=== PATIENT | male | born 1945 | race Caucasian/White ===

== ENCOUNTER 2018-04-26 23:15 | Emergency (ER) | payer MEDICARE ==
--- NOTE | 2018-04-26 23:48 | RAD ---
AP VIEW CHEST: 04/26/18 HISTORY: Shortness of breath and dyspnea. History of asthma. AP view chest is obtained on 04/26/18. Comparison made to previous exam from 11/05/15. AP view chest demonstrates the lungs to be well aerated. No evidence of active intrathoracic disease seen. No evidence of effusions, pneumonia or pneumothorax seen. IMPRESSION: Unremarkable AP view chest. POS: [facility]
[2018-04-26 23:49] LABS: #Basophils 0.1 thou/uL (0.0-0.2); #Eosinphils 0.3 thou/uL (0.0-0.7); #Lymphocytes 1.8 thou/uL (1.20-3.40); #Monocytes 0.6 thou/uL (0.11-0.59); #Neutrophils 4.3 thou/uL (1.40-6.50); %Basophils 1.3 % (0.0-1.0); %Eosinophils 3.8 % (0.0-10.0); %Lymphocytes 25.5 % (21.0-51.0); %Monocytes 8.2 % (0.0-10.0); %Neutrophils 61.1 % (42.0-75.0); Hemoglobin 13.9 g/dL (14.0-18.0); Mean Corpuscular HGB CONC 32.5 g/dL (32.0-36.0); Mean Corpuscular Hemoglobin 29.4 pg (27.0-31.0); Mean Corpuscular Volume 90.4 fL (78.0-98.0); Mean Platelet Volume 7.6 fL (7.4-10.4); Platelet Count 241 thou/uL (130-400); RBC Distribution Width 12.4 % (11.5-14.5); Red Blood Cell (RBC) Count 4.72 mill/uL (4.70-6.10)
[2018-04-27 00:14] LABS: ALT (SGPT) Less than 7 U/L (8-55); AST (SGOT) 11 U/L (5-34); Alkaline Phosphatase 82 U/L (40-150); Anion Gap 12 mmol/L (10-20); BUN (Urea Nitrogen) 16 mg/dL (8.4-25.7); Bilirubin, Total 0.6 mg/dL (0.2-1.2); Calc. Creatinine Clearance 0 mL/min (70-130); Calcium 9.3 mg/dL (7.8-10.44); Carbon Dioxide 28 mmol/L (23-31); Chloride 103 mmol/L (98-107); Estimated GFR-MDRD 63; Glucose 135 mg/dL (83-110); Potassium 4.1 mmol/L (3.5-5.1); Sodium 139 mmol/L (136-145)
[2018-04-27] MEDS ORDERED: methylPREDNISolone Sod Succ/PF 125 MG/2 ML VIAL ONE (01:25)
[2018-04-27 01:52] LABS: CKMB 1.2 ng/mL (0-6.6); Troponin I Less than 0.010 ng/mL (< 0.028)
== END 2018-04-27 02:22 | disposition home or self-care (01) ==
LOC: ERS 23:15
DX: J45.901 Unspecified asthma with (acute) exacerbation (principal); N40.0 Benign prostatic hyperplasia without lower urinary tract symptoms; E78.5 Hyperlipidemia, unspecified; I10 Essential (primary) hypertension; G20 Parkinson's disease; F41.9 Anxiety disorder, unspecified; F32.9 Major depressive disorder, single episode, unspecified; Z79.82 Long term (current) use of aspirin; Z79.899 Other long term (current) drug therapy
CPT/HCPCS: 71045; 80053; 82553; 84484; 85025; 93005; 94640; 96374; J2930; J7620

== ENCOUNTER 2019-08-14 19:00 | Emergency (ER) | payer MEDICARE, MEDICAID ==
--- NOTE | 2019-08-14 20:30 | RAD ---
PORTABLE CHEST ONE VIEW: 08/14/19 at 7:47 p.m. HISTORY: Shortness of breath, asthma, wheezing. COMPARISON: 04/26/18. FINDINGS: The heart size is normal. Chronic changes are again seen. The aorta is tortuous. No lobar consolidati on, pneumothoraces or pleural effusions are identified. A hiatal hernia is present. IMPRESSION: No acute process. POS: [facility]
[2019-08-14] MEDS ORDERED: predniSONE 20 MG TAB ONE (21:29)
== END 2019-08-14 21:44 | disposition home or self-care (01) ==
LOC: ERS 19:00
DX: J45.901 Unspecified asthma with (acute) exacerbation (principal); L03.116 Cellulitis of left lower limb; N40.0 Benign prostatic hyperplasia without lower urinary tract symptoms; E78.5 Hyperlipidemia, unspecified; I10 Essential (primary) hypertension; G20 Parkinson's disease; J45.909 Unspecified asthma, uncomplicated; F41.9 Anxiety disorder, unspecified; F32.9 Major depressive disorder, single episode, unspecified; Z79.899 Other long term (current) drug therapy; Z79.82 Long term (current) use of aspirin
CPT/HCPCS: 71045; 87804; 93005; 94640; J7512; J7620

== ENCOUNTER 2019-10-18 17:18 | Emergency (ER) | payer MEDICARE, MEDICAID | END 2019-10-18 17:56 | disposition home or self-care (01) | LOC: ERS 17:18 | DX: L03.116 Cellulitis of left lower limb (principal); L03.115 Cellulitis of right lower limb; N40.0 Benign prostatic hyperplasia without lower urinary tract symptoms; E78.5 Hyperlipidemia, unspecified; I10 Essential (primary) hypertension; J45.909 Unspecified asthma, uncomplicated; G20 Parkinson's disease; F41.9 Anxiety disorder, unspecified; F32.9 Major depressive disorder, single episode, unspecified; Z79.899 Other long term (current) drug therapy; Z79.82 Long term (current) use of aspirin | CPT/HCPCS: 99282 ==

== ENCOUNTER 2019-10-20 17:51 | Emergency (ER) | payer MEDICARE, MEDICAID | END 2019-10-20 18:32 | disposition home or self-care (01) | LOC: ERS 17:51 | DX: M79.672 Pain in left foot (principal); M79.671 Pain in right foot; E78.5 Hyperlipidemia, unspecified; I10 Essential (primary) hypertension; G20 Parkinson's disease; J45.909 Unspecified asthma, uncomplicated; N40.0 Benign prostatic hyperplasia without lower urinary tract symptoms; F41.9 Anxiety disorder, unspecified; F32.9 Major depressive disorder, single episode, unspecified | CPT/HCPCS: 99281 ==

== ENCOUNTER 2019-10-30 12:00 | Outpatient (CLI) | payer MEDICARE, MEDICAID ==
--- NOTE | 2019-10-30 13:58 | MRI ---
MRI CERVICAL SPINE WITHOUT CONTRAST: 10/30/19 COMPARISON: None. HISTORY: Cervical radiculopathy, chest pain and neck pain. TECHNIQUE: Multiplanar and multisequence MR imaging of the cervical spine provided without contrast. FINDINGS: the sagittal STIR imaging demonstrates no focal area of osseous marrow edema. There is mild degenerat shae change at the atlantoaxial interspace. The craniocervical and the cervicothoracic junctions appea r intact. No anterolisthesis or retrolisthesis is noted within the cervical spine. There is no focal area of abnormal signal intensity identified within the cervical cord. C2-3, mild bilateral facet hypertrophy with no significant central canal or neural foraminal stenosis . C3-4, minimal disc bulge. Mild bilateral facet hypertrophy and hypertrophy of the ligamentum flavum. No significant central canal stenosis. Mild bilateral neural foraminal stenosis. C4-5, there is disc space narrowing with disc desiccation and mild disc bulge partially effacing the ventral thecal sac and leading to a mild degree of central canal stenosis. Bilateral facet and uncove rtebral osteophyte formation, left greater than right. Mild right and mild/moderate left neural harvey inal stenosis. C5-6, there is disc space narrowing with disc desiccation and mild disc bulge partially effacing the ventral thecal sac and leading to a mild degree of central canal stenosis. Mild bilateral facet hyper trophy on the basis of facet and uncovertebral osteophyte formation. C6-7, mild disc space narrowing and disc desiccation. Mild bilateral facet hypertrophy. No significan t central canal or neural foraminal stenosis. C7-T1, mild bilateral facet hypertrophy with no significant central canal or neural foraminal stenosi s. IMPRESSION: Cervical spine degenerative change as detailed above. POS: [facility]
--- NOTE | 2019-10-30 14:10 | RAD ---
RADIOGRAPH CERVICAL SPINE 3 VIEWS: DATE: 10/30/2019 HISTORY: 74-year-old male with cervical radiculopathy TECHNIQUE: 3 lateral views in flexion, extension, and neutral FINDINGS: Vertebral body heights are maintained. Moderate disc space narrowing at C5-6. Mild to moderate disc s pace narrowing at C6-7. Alignment is normal. Limited range of motion. High-grade facet DJD at C3-4. No prevertebral soft tissue swelling. No instability. IMPRESSION: 1. Mild-moderate Cervical spondylosis 2. Limited range of motion. 3. No instability
== END 2019-10-30 12:01 | disposition home or self-care (01) ==
LOC: BICMRI 12:00
PROVIDERS: ATTEND Nurse Practitioner Family
DX: M54.14 Radiculopathy, thoracic region (principal); M47.22 Other spondylosis with radiculopathy, cervical region
CPT/HCPCS: 72040; 72141

== ENCOUNTER 2019-11-10 02:21 | Emergency (ER) | payer MEDICARE, MEDICAID ==
--- NOTE | 2019-11-10 07:56 | RAD ---
RADIOGRAPH CHEST ONE VIEW RADIOGRAPH ABDOMEN 2 VIEWS: DATE: 11/10/2019 HISTORY: 74-year-old male with constipation. Lack of bowel movement for 4 days. FINDINGS: There are no airspace densities or pulmonary edema. The lateral costophrenic angles are sharp. There is no cardiomegaly. There is no evidence of pneumothorax or pneumoperitoneum. There is no evidence of dilated small bowel loops, differential air-fluid levels, or organomegaly. Th ere is an approximately 7 x 7 cm midline opacity at the thoracoabdominal junction with gas and fluid. IMPRESSION: 1) No acute cardiopulmonary findings. 2) no evidence of bowel obstruction. 3) moderate sized hiatal hernia.
== END 2019-11-10 04:03 | disposition home or self-care (01) ==
LOC: ERS 02:21
DX: K59.00 Constipation, unspecified (principal); I10 Essential (primary) hypertension; N40.0 Benign prostatic hyperplasia without lower urinary tract symptoms; F41.9 Anxiety disorder, unspecified; F32.9 Major depressive disorder, single episode, unspecified; G20 Parkinson's disease; E78.5 Hyperlipidemia, unspecified; J45.909 Unspecified asthma, uncomplicated
CPT/HCPCS: 74022

== ENCOUNTER 2019-12-08 13:45 | Emergency (ER) | payer MEDICARE, MEDICAID | END 2019-12-08 15:15 | disposition home or self-care (01) | LOC: ERS 13:45 | DX: J02.9 Acute pharyngitis, unspecified (principal); N40.0 Benign prostatic hyperplasia without lower urinary tract symptoms; E78.5 Hyperlipidemia, unspecified; I10 Essential (primary) hypertension; G20 Parkinson's disease; J45.909 Unspecified asthma, uncomplicated; G89.29 Other chronic pain; F41.9 Anxiety disorder, unspecified; F32.9 Major depressive disorder, single episode, unspecified; Z79.82 Long term (current) use of aspirin; Z79.899 Other long term (current) drug therapy | CPT/HCPCS: 99282 ==

== ENCOUNTER 2020-01-20 15:06 | Emergency (ER) | payer MEDICARE, MEDICAID ==
[2020-01-20 15:42] LABS: #Eosinphils 0.1 thou/uL (0.0-0.7); #Lymphocytes 1.3 thou/uL (1.20-3.40); #Monocytes 0.4 thou/uL (0.11-0.59); %Basophils 0.1 % (0.0-1.0); %Eosinophils 1.7 % (0.0-10.0); %Lymphocytes 22.2 % (21.0-51.0); %Monocytes 6.8 % (0.0-10.0); %Neutrophils 69.3 % (42.0-75.0); Hemoglobin 14.4 g/dL (14.0-18.0); Mean Corpuscular HGB CONC 34.1 g/dL (32.0-36.0); Mean Corpuscular Hemoglobin 31.4 pg (27.0-31.0); Mean Corpuscular Volume 92.2 fL (78.0-98.0); Platelet Count 180 thou/uL (130-400); RBC Distribution Width 11.4 % (11.5-14.5); Red Blood Cell (RBC) Count 4.59 mill/uL (4.70-6.10); White Blood Cell (WBC) Count 5.7 thou/uL (4.8-10.8)
[2020-01-20 16:08] LABS: ALT (SGPT) Less than 7 U/L (8-55); AST (SGOT) 12 U/L (5-34); Albumin 4.2 g/dL (3.4-4.8); Alkaline Phosphatase 86 U/L (40-110); Anion Gap 11 mmol/L (10-20); BUN (Urea Nitrogen) 24 mg/dL (8.4-25.7); Bilirubin, Total 0.5 mg/dL (0.2-1.2); CK (CPK) 102 U/L (30-200); Calc. Creatinine Clearance 0 mL/min (70-130); Calcium 8.7 mg/dL (7.8-10.44); Carbon Dioxide 27 mmol/L (23-31); Chloride 107 mmol/L (98-107); Estimated GFR-MDRD 66; Globulin 3.4 g/dL (2.4-3.5); Glucose 122 mg/dL (83-110); Lipase 40 U/L (8-78); Potassium 4.5 mmol/L (3.5-5.1); Protein, Total 7.6 g/dL (5.8-8.1); Sodium 140 mmol/L (136-145)
--- NOTE | 2020-01-20 16:08 | RAD ---
CHEST ONE VIEW: 01/20/20 HISTORY: Left sided chest pain. Heart size is within normal limits. Chronic lung changes are stable. Small hiatal hernia is noted. IMPRESSION: Chronic lung change. Stable chest. POS: [facility]
== END 2020-01-20 17:12 | disposition home or self-care (01) ==
LOC: ERS 15:06
DX: M94.0 Chondrocostal junction syndrome [Tietze] (principal); I10 Essential (primary) hypertension; J45.909 Unspecified asthma, uncomplicated; G20 Parkinson's disease; E78.5 Hyperlipidemia, unspecified; F41.9 Anxiety disorder, unspecified; F32.9 Major depressive disorder, single episode, unspecified; N40.0 Benign prostatic hyperplasia without lower urinary tract symptoms; Z79.51 Long term (current) use of inhaled steroids; Z79.82 Long term (current) use of aspirin; Z79.899 Other long term (current) drug therapy
CPT/HCPCS: 71045; 80053; 82550; 83690; 84484; 85025; 93005

== ENCOUNTER 2020-02-19 16:36 | Emergency (ER) | payer MEDICARE, MEDICAID ==
[2020-02-19] MEDS ORDERED: Adacel (T-DAP) 0.5 ML SYRINGE ONE (17:11)
[2020-02-19] MEDS ORDERED: Bacitracin 1 PK ONE (17:11)
[2020-02-19] MEDS ORDERED: Lidocaine 1% (PF) 30 ML VIAL ONE (17:11)
== END 2020-02-19 18:35 | disposition home or self-care (01) ==
LOC: ERS 16:36
DX: S61.216A Laceration without foreign body of right little finger without damage to nail, initial encounter (principal); E78.5 Hyperlipidemia, unspecified; I10 Essential (primary) hypertension; J45.909 Unspecified asthma, uncomplicated; F41.9 Anxiety disorder, unspecified; F32.9 Major depressive disorder, single episode, unspecified; G20 Parkinson's disease; N40.0 Benign prostatic hyperplasia without lower urinary tract symptoms; Z79.82 Long term (current) use of aspirin; Z23 Encounter for immunization; Z79.899 Other long term (current) drug therapy; W26.8XXA Contact with other sharp object(s), not elsewhere classified, initial encounter
CPT/HCPCS: 12001; 90471; 90715; J2001

== ENCOUNTER 2020-02-24 12:08 | Emergency (ER) | payer MEDICARE, MEDICAID ==
[2020-02-24] MEDS ORDERED: traMADol HCl 50 MG TAB ONE (12:29)
--- NOTE | 2020-02-24 12:44 | CT ---
CT BRAIN NONCONTRAST: DATE: 02/24/2020 HISTORY: 74-year-old male status post acute head trauma from fall FINDINGS: There is no evidence of acute intra-axial or extra-axial hemorrhage. There is no midline shift or any other mass effect. There is no extra-axial fluid collection. There is no evidence of obstructive hydrocephalus. Calvarium is intact. IMPRESSION: No acute intracranial findings.
--- NOTE | 2020-02-24 12:47 | CT ---
CT CERVICAL SPINE NONCONTRAST: DATE: 02/24/2020 HISTORY: cervical trauma status post fall. 74-year-old male FINDINGS: There are no jumped or perched facets. There is no evidence of acute fracture. The vertebral body hei ghts are maintained. There is no prevertebral soft tissue swelling. IMPRESSION: No evidence of acute fracture or acute traumatic subluxation.
== END 2020-02-24 13:45 | disposition home or self-care (01) ==
LOC: ERS 12:08
DX: S00.83XA Contusion of other part of head, initial encounter (principal); E78.5 Hyperlipidemia, unspecified; I10 Essential (primary) hypertension; G20 Parkinson's disease; F41.9 Anxiety disorder, unspecified; F32.9 Major depressive disorder, single episode, unspecified; Z79.82 Long term (current) use of aspirin; Z79.899 Other long term (current) drug therapy; W01.0XXA Fall on same level from slipping, tripping and stumbling without subsequent striking against object, initial encounter
CPT/HCPCS: 70450; 72125

== ENCOUNTER 2020-02-29 10:51 | Emergency (ER) | payer MEDICARE, MEDICAID | END 2020-02-29 11:15 | disposition home or self-care (01) | LOC: ERS 10:51 | DX: S61.216D Laceration without foreign body of right little finger without damage to nail, subsequent encounter (principal); E78.5 Hyperlipidemia, unspecified; I10 Essential (primary) hypertension; J45.909 Unspecified asthma, uncomplicated; G20 Parkinson's disease; F41.9 Anxiety disorder, unspecified; F32.9 Major depressive disorder, single episode, unspecified; N40.0 Benign prostatic hyperplasia without lower urinary tract symptoms; Z79.82 Long term (current) use of aspirin; Z79.899 Other long term (current) drug therapy ==

== ENCOUNTER 2020-04-30 14:19 | Outpatient (CLI) | payer MEDICARE, MEDICAID ==
--- NOTE | 2020-04-30 15:52 | MRI ---
MRI thoracic spine noncontrast HISTORY: Back pain. Thoracic radiculopathy. FINDINGS: Vertebral body heights and alignment are maintained. There is desiccation of all of the int ervertebral discs. Hemangioma is noted within the T10 vertebral body. Small focus of discogenic endplate bone marrow changes evident at the posterior inferior aspect of T9. Hiatal hernia is partially visualized, better detailed on prior cross-sectional imaging exams. Degenerative changes of the lower cervical spine are apparent on the sagittal images without evidence of severe spinal cord compression. T8-9: Mild disc space narrowing. Very mild posterior disc bulge, with minimal effacement of the ventr al aspect of the thecal sac. No significant central canal or foraminal stenosis. T1-T2, T2-3, T3-4, T4-5, T5-6, T6-7, T7-8, T9-T10, T10-11, T11-12: Very mild osteophytosis. Central c anal and neural foramina are patent. IMPRESSION : Minimal disc bulge at the T8-9 level without spinal cord or nerve root compression.
== END 2020-04-30 14:20 | disposition home or self-care (01) ==
LOC: BICMRI 14:19
PROVIDERS: ATTEND Nurse Practitioner Family
DX: M51.14 Intervertebral disc disorders with radiculopathy, thoracic region (principal)
CPT/HCPCS: 72146

== ENCOUNTER 2020-05-27 09:56 | Outpatient (CLI) | payer MEDICARE, MEDICAID ==
--- NOTE | 2020-05-27 11:30 | CT ---
CT CHEST WITHOUT CONTRAST CLINICAL INDICATION: Left-sided chest pain. COMPARISON: 04/26/2010 FINDINGS: Aorta: Limited evaluation of vascular structures due to lack of intravenous contrast. Vascular calcif ications are seen in the thoracic and visualized upper abdominal aorta with prominent vascular calcifications seen in the coronary arteries mildly progressed from prior exam. Lungs: Mild bronchiectasis is seen in the right middle lobe as well as bilateral lower lobe with mild peribronchial thickening which could be related to bronchiolitis. Large airways do appear patent. Linear densities are seen in the right lower lobe as well as in the left upper lobe and right middle lobe which may represent areas of scarring and/or atelectasis. No discrete pulmonary nodule or mass is seen. There is no pleural effusion identified. Mediastinum: Lack of intravenous contrast limits evaluation, but no enlarged lymph nodes are seen by CT size criteria. There is evidence of a hiatal hernia with the fundus and most proximal body of the stomach above the level of the hemidiaphragms. Thyroid gland: Grossly normal nonenhanced CT appearance Osseous structures: No suspicious lytic or sclerotic osseous lesions are identified. Chest wall: Findings suggestive of mild gynecomastia. Upper abdomen: Evidence of colonic diverticulosis. Exophytic hypodense lesion superior pole right kid honey is again seen and given stability over this period of time is suggestive of a cyst. No significant interval change compared to prior exam. IMPRESSION: 1. There is mild bronchiectasis predominantly at the lung bases with mild peribronchial thickening wh ich could be related to bronchiolitis. No consolidation is seen. There are linear densities seen in the right lower lobe and in the region of the left upper lobe and right middle lobe likely due to are as of subsegmental atelectasis and/or mild scarring. 2. Hiatal hernia. 3. Right renal cyst.
== END 2020-05-27 09:57 | disposition home or self-care (01) ==
LOC: BICCT 09:56
PROVIDERS: ATTEND Family Medicine
DX: R07.9 Chest pain, unspecified (principal); J47.9 Bronchiectasis, uncomplicated; K44.9 Diaphragmatic hernia without obstruction or gangrene; N28.1 Cyst of kidney, acquired
CPT/HCPCS: 71250

== ENCOUNTER 2020-06-12 10:22 | Emergency (ER) | payer MEDICARE, MEDICAID | END 2020-06-12 10:50 | disposition home or self-care (01) | LOC: ERS 10:22 | DX: L03.116 Cellulitis of left lower limb (principal); N40.0 Benign prostatic hyperplasia without lower urinary tract symptoms; E78.5 Hyperlipidemia, unspecified; I10 Essential (primary) hypertension; J45.909 Unspecified asthma, uncomplicated; G20 Parkinson's disease; Z79.82 Long term (current) use of aspirin; Z79.899 Other long term (current) drug therapy | CPT/HCPCS: 99283 ==

== ENCOUNTER 2020-06-15 05:57 | Emergency (ER) | payer MEDICARE, MEDICAID ==
[2020-06-15] MEDS ORDERED: Morphine 4 MG/ML VIAL ONE ×2 (06:32→07:08)
[2020-06-15] MEDS ORDERED: methylPREDNISolone Sod Succ/PF 125 MG/2 ML VIAL ONE ×2 (06:32→07:08)
[2020-06-15] MEDS ORDERED: Albuterol 200 PUFF (6.7GM INHALER) ONE (06:43)
[2020-06-15 06:56] LABS: #Basophils 0.1 thou/uL (0.0-0.2); #Eosinphils 0.2 thou/uL (0.0-0.7); #Lymphocytes 3.2 thou/uL (1.20-3.40); #Monocytes 0.9 thou/uL (0.11-0.59); #Neutrophils 3.8 thou/uL (1.40-6.50); %Basophils 0.9 % (0.0-1.0); %Eosinophils 2.9 % (0.0-10.0); %Lymphocytes 39.3 % (21.0-51.0); %Monocytes 10.7 % (0.0-10.0); %Neutrophils 46.2 % (42.0-75.0); Hemoglobin 8.5 g/dL (14.0-18.0); Mean Corpuscular HGB CONC 34.6 g/dL (32.0-36.0); Mean Corpuscular Hemoglobin 31.2 pg (27.0-31.0); Mean Corpuscular Volume 90.2 fL (78.0-98.0); Mean Platelet Volume 8.2 fL (7.4-10.4); Platelet Count 266 thou/uL (130-400); RBC Distribution Width 11.7 % (11.5-14.5); Red Blood Cell (RBC) Count 2.71 mill/uL (4.70-6.10); White Blood Cell (WBC) Count 8.2 thou/uL (4.8-10.8)
[2020-06-15 07:16] LABS: ALT (SGPT) 19 U/L (8-55); AST (SGOT) 19 U/L (5-34); Albumin 3.9 g/dL (3.4-4.8); Alkaline Phosphatase 89 U/L (40-110); Anion Gap 14 mmol/L (10-20); BUN (Urea Nitrogen) 25 mg/dL (8.4-25.7); Bilirubin, Total 0.4 mg/dL (0.2-1.2); Calc. Creatinine Clearance 0 mL/min (70-130); Calcium 9.2 mg/dL (7.8-10.44); Carbon Dioxide 25 mmol/L (23-31); Chloride 104 mmol/L (98-107); Globulin 3.3 g/dL (2.4-3.5); Glucose 108 mg/dL (83-110); Lipase 52 U/L (8-78); Magnesium 2.3 mg/dL (1.6-2.6); Potassium 4.3 mmol/L (3.5-5.1); Protein, Total 7.2 g/dL (5.8-8.1); Sodium 139 mmol/L (136-145)
--- NOTE | 2020-06-15 07:59 | RAD ---
Portable frontal chest radiograph: 06/15/2020 COMPARISON: 01/20/2020 HISTORY: Asthma exacerbation, chest pain FINDINGS: As seen on the prior examination, there is increased linear interstitial density in the per ihilar regions and both lung bases. There is no pneumothorax, lobar consolidation, or alveolar edema. IMPRESSION: No significant interval change.
[2020-06-15 08:48] LABS: Reticulocyte Count 2.6 % (0.5-1.5)
[2020-06-15 09:11] LABS: Iron 53 ug/dL (65-175); Iron 58 ug/dL (65-175); Iron Binding Capacity, Total 305 mcg/dL (261-462); Iron Binding Capacity, Total 306 mcg/dL (261-462)
[2020-06-15 09:51] LABS: SARS-CoV-2 MS2 Positive; SARS-CoV-2 N Gene Negative; SARS-CoV-2 S Gene Negative; SARS-CoV-2 by NAA Not Detected (NotDetected); SARS-CoV-2 orf1ab Negative
== END 2020-06-15 10:24 | disposition home or self-care (01) ==
LOC: ERS 05:57
DX: J45.901 Unspecified asthma with (acute) exacerbation (principal); D64.9 Anemia, unspecified; Z20.828 Contact with and (suspected) exposure to other viral communicable diseases; Z79.899 Other long term (current) drug therapy; Z79.82 Long term (current) use of aspirin; Z79.891 Long term (current) use of opiate analgesic; E78.5 Hyperlipidemia, unspecified; I10 Essential (primary) hypertension; G20 Parkinson's disease
CPT/HCPCS: 71045; 80053; 82607; 82746; 83010; 83540; 83550; 83690; 83735; 83880; 84484; 85025; 85046; 87040; 87804 ×2; 94640; 96374; 96375; 99285; U0003; 36415; 87635; J2270; J2930

== ENCOUNTER 2020-08-17 12:54 | Emergency (ER) | payer MEDICARE, MEDICAID | END 2020-08-17 13:22 | disposition left against medical advice (07) | LOC: ERS 12:54 | DX: Z53.21 Procedure and treatment not carried out due to patient leaving prior to being seen by health care provider (principal) ==

== ENCOUNTER 2020-10-01 13:39 | Outpatient (CLI) | payer MEDICARE, MEDICAID ==
[2020-10-01 15:04] LABS: #Eosinphils 0.2 10x3/uL (0.0-0.5); #Monocytes 0.4 10x3/uL (0.0-1.1); #Neutrophils 3.6 10x3/uL (1.5-8.4); %Basophils 0.3 % (0.0-2.0); %Eosinophils 2.6 % (0.0-6.0); %Lymphocytes 30.4 % (18.0-47.0); %Monocytes 7.2 % (0.0-10.0); %Neutrophils 59.2 % (40.0-75.0); Hemoglobin 14.2 g/dL (13.5-17.5); Mean Corpuscular Hemoglobin 29.3 pg (27.0-33.0); Mean Corpuscular Volume 91.5 fl (81.2-95.1); Mean Platelet Volume 10.4 fl (7.4-10.4); Platelet Count 235 10x3/uL (150-450); RBC Distribution Width 12.6 % (11.5-14.5); Red Blood Cell (RBC) Count 4.85 10x6/uL (4.32-5.72); White Blood Cell (WBC) Count 6.1 10x3/uL (3.5-10.5)
[2020-10-01 15:12] LABS: Anion Gap 13 mmol/L (10-20); BUN (Urea Nitrogen) 25 mg/dL (8.4-25.7); Calc. Creatinine Clearance 0 mL/min (70-130); Calcium 8.9 mg/dL (7.8-10.44); Carbon Dioxide 27 mmol/L (23-31); Chloride 104 mmol/L (98-107); Glucose 150 mg/dL (83-110); Potassium 4.9 mmol/L (3.5-5.1); Sodium 139 mmol/L (136-145)
[2020-10-02 01:56] LABS: SARS-CoV-2 PCR by NAA Not Detected (NotDetected)
== END 2020-10-01 13:40 | disposition home or self-care (01) ==
LOC: LABBT 13:39
PROVIDERS: ATTEND Specialist
DX: Z01.818 Encounter for other preprocedural examination (principal); D18.09 Hemangioma of other sites; N40.0 Benign prostatic hyperplasia without lower urinary tract symptoms; E11.8 Type 2 diabetes mellitus with unspecified complications; G20 Parkinson's disease; K40.91 Unilateral inguinal hernia, without obstruction or gangrene, recurrent; Z20.822 Contact with and (suspected) exposure to COVID-19
CPT/HCPCS: 80048; 85025; 93005; U0003; U0005; 87635; 93010

== ENCOUNTER 2020-10-06 09:53 | Day surgery (SDC) | payer MEDICARE, MEDICAID ==
[2020-10-05 11:00] VITALS: BMI 27.8
[2020-10-06] MEDS ORDERED: Ketorolac Tromethamine 30 MG/ML VIAL ONE (10:44)
[2020-10-06] MEDS ORDERED: Acetaminophen 500 MG TAB ONE ×2 (10:45→10:48)
[2020-10-06] MEDS ORDERED: Lidocaine 2% w/Epinephrine 1:200K 20 ML VIAL ONE (12:26)
[2020-10-06] MEDS ORDERED: Bupivacaine 0.25% HCL 30 ML VIAL ONE (12:26)
[2020-10-06] MEDS ORDERED: Fentanyl 100 MCG/2 ML VIAL ONE (12:40)
[2020-10-06] MEDS ORDERED: Lidocaine 1% PF 5 ML VIAL ONE (12:50)
[2020-10-06] MEDS ORDERED: Glycopyrrolate 0.2 MG/ML 5 ML SYRINGE ONE (12:50)
[2020-10-06] MEDS ORDERED: PROPOFOL 200 MG/20 ML VIAL ONE (12:50)
[2020-10-06] MEDS ORDERED: ePHEDrine Sulfate 50 MG/10 ML VIAL ONE (12:50)
[2020-10-06] MEDS ORDERED: Rocuronium Bromide 10 MG/ML (10ML VIAL) ONE (12:50)
[2020-10-06] MEDS ORDERED: Ondansetron PF 4 MG/2 ML Vial ONE (14:49)
[2020-10-06] MEDS ORDERED: HYDROcodone/Acetaminophen 5/325 mg Tablet ONE (16:39)
[2020-10-06] MEDS ORDERED: Tamsulosin HCl 0.4 MG CAP ONE (17:59)
== END 2020-10-06 20:00 | disposition home or self-care (01) ==
LOC: SDC 09:53
PROVIDERS: ATTEND Specialist
PROC: 0YUA4JZ Supplement Bilateral Inguinal Region with Synthetic Substitute, Percutaneous Endoscopic Approach (ICD-10-PCS; principal; 2020-10-06)
PROC: 0HB4XZZ Excision of Neck Skin, External Approach (ICD-10-PCS; 2020-10-06)
PROC: 0HB0XZZ Excision of Scalp Skin, External Approach (ICD-10-PCS; 2020-10-06)
PROC: 0HB7XZZ Excision of Abdomen Skin, External Approach (ICD-10-PCS; 2020-10-06)
DX: K40.91 Unilateral inguinal hernia, without obstruction or gangrene, recurrent (principal); K40.90 Unilateral inguinal hernia, without obstruction or gangrene, not specified as recurrent; D18.01 Hemangioma of skin and subcutaneous tissue; D17.6 Benign lipomatous neoplasm of spermatic cord; N40.0 Benign prostatic hyperplasia without lower urinary tract symptoms; J45.909 Unspecified asthma, uncomplicated; E11.9 Type 2 diabetes mellitus without complications; G20 Parkinson's disease; Z79.82 Long term (current) use of aspirin; Z79.899 Other long term (current) drug therapy
CPT/HCPCS: 11402; 11422 ×2; 49650; 49651; 88305; C1781; J0690; J1885; J2405; J2704; J3010; S0020

== ENCOUNTER 2020-10-09 14:57 | Emergency (ER) | payer MEDICARE, OTHER ==
[~2020-10-09 14:57] MED LIST: Iopamidol-370 76% 500 ML 1 ML ONE
[2020-10-09 16:50] LABS: #Eosinphils 0.3 thou/uL (0.0-0.7); #Lymphocytes 1.3 thou/uL (1.20-3.40); #Monocytes 0.5 thou/uL (0.11-0.59); #Neutrophils 3.5 thou/uL (1.40-6.50); %Basophils 0.4 % (0.0-1.0); %Eosinophils 5.3 % (0.0-10.0); %Lymphocytes 22.9 % (21.0-51.0); %Monocytes 9.6 % (0.0-10.0); %Neutrophils 61.8 % (42.0-75.0); Hemoglobin 12.6 g/dL (14.0-18.0); Mean Corpuscular HGB CONC 33.5 g/dL (32.0-36.0); Mean Corpuscular Hemoglobin 30.6 pg (27.0-31.0); Mean Corpuscular Volume 91.4 fL (78.0-98.0); Mean Platelet Volume 7.9 fL (7.4-10.4); Platelet Count 165 thou/uL (130-400); RBC Distribution Width 12.1 % (11.5-14.5); Red Blood Cell (RBC) Count 4.13 mill/uL (4.70-6.10); White Blood Cell (WBC) Count 5.6 thou/uL (4.8-10.8)
[2020-10-09 17:17] LABS: ALT (SGPT) Less than 7 U/L (8-55); AST (SGOT) 25 U/L (5-34); Albumin 3.6 g/dL (3.4-4.8); Alkaline Phosphatase 83 U/L (40-110); Anion Gap 12 mmol/L (10-20); BUN (Urea Nitrogen) 21 mg/dL (8.4-25.7); Bilirubin, Total 0.8 mg/dL (0.2-1.2); Calc. Creatinine Clearance 0 mL/min (70-130); Calcium 8.9 mg/dL (7.8-10.44); Carbon Dioxide 28 mmol/L (23-31); Chloride 102 mmol/L (98-107); Globulin 3.4 g/dL (2.4-3.5); Glucose 138 mg/dL (83-110); Lipase 34 U/L (8-78); Potassium 4.3 mmol/L (3.5-5.1); Sodium 138 mmol/L (136-145)
== END 2020-10-09 18:08 | disposition home or self-care (01) ==
LOC: ERS 14:57
DX: G89.18 Other acute postprocedural pain (principal); K59.00 Constipation, unspecified; I10 Essential (primary) hypertension; J45.909 Unspecified asthma, uncomplicated; R16.0 Hepatomegaly, not elsewhere classified; E78.5 Hyperlipidemia, unspecified; N40.1 Benign prostatic hyperplasia with lower urinary tract symptoms; R33.8 Other retention of urine; G20 Parkinson's disease; Z79.899 Other long term (current) drug therapy; Z79.82 Long term (current) use of aspirin
CPT/HCPCS: 36415; 74177; 80053; 83605; 83690; 85025; 93005; Q9967

== ENCOUNTER 2020-11-18 15:55 | Emergency (ER) | payer MEDICARE, OTHER ==
[2020-11-19 12:29] LABS: SARS-CoV-2 PCR by NAA Not Detected (NotDetected)
== END 2020-11-18 17:13 | disposition home or self-care (01) ==
LOC: ERS 15:55
DX: J02.9 Acute pharyngitis, unspecified (principal); H92.02 Otalgia, left ear; Z20.822 Contact with and (suspected) exposure to COVID-19; I10 Essential (primary) hypertension; J45.909 Unspecified asthma, uncomplicated; N40.0 Benign prostatic hyperplasia without lower urinary tract symptoms; E78.5 Hyperlipidemia, unspecified; G20 Parkinson's disease; Z87.19 Personal history of other diseases of the digestive system
CPT/HCPCS: U0003; U0005; 87635; 99281

== ENCOUNTER 2020-11-20 14:42 | Emergency (ER) | payer MEDICARE, OTHER | END 2020-11-20 15:31 | disposition home or self-care (01) | LOC: ERS 14:42 | DX: Z76.0 Encounter for issue of repeat prescription (principal); G89.29 Other chronic pain; M79.601 Pain in right arm; I10 Essential (primary) hypertension; J45.909 Unspecified asthma, uncomplicated; E78.5 Hyperlipidemia, unspecified; Z79.82 Long term (current) use of aspirin; Z79.52 Long term (current) use of systemic steroids; Z79.899 Other long term (current) drug therapy | CPT/HCPCS: 99282 ==

== ENCOUNTER 2020-11-21 16:59 | Emergency (ER) | payer MEDICARE, OTHER ==
[2020-11-21] MEDS ORDERED: HYDROcodone/Acetaminophen 5/325 mg Tablet ONE (17:29)
== END 2020-11-21 17:35 | disposition home or self-care (01) ==
LOC: ERS 16:59
DX: M79.602 Pain in left arm (principal); G89.29 Other chronic pain; I10 Essential (primary) hypertension; J45.909 Unspecified asthma, uncomplicated; E78.5 Hyperlipidemia, unspecified; Z79.899 Other long term (current) drug therapy; Z79.82 Long term (current) use of aspirin
CPT/HCPCS: 99281

== ENCOUNTER 2021-02-22 | Emergency (ER) | payer MEDICARE, OTHER | END 2021-02-22 08:06 | disposition home or self-care (01) ==

== ENCOUNTER 2021-02-26 15:23 | Emergency (ER) | payer MEDICARE, OTHER ==
[2021-02-26 16:24] LABS: #Eosinphils 0.1 thou/uL (0.0-0.7); #Lymphocytes 1.1 thou/uL (1.20-3.40); #Monocytes 0.4 thou/uL (0.11-0.59); #Neutrophils 4.8 thou/uL (1.40-6.50); %Basophils 0.1 % (0.0-1.0); %Eosinophils 1.5 % (0.0-10.0); %Lymphocytes 17.2 % (21.0-51.0); %Monocytes 6.9 % (0.0-10.0); %Neutrophils 74.4 % (42.0-75.0); Hemoglobin 13.2 g/dL (14.0-18.0); Mean Corpuscular HGB CONC 31.5 g/dL (32.0-36.0); Mean Corpuscular Hemoglobin 28.3 pg (27.0-31.0); Mean Corpuscular Volume 89.9 fL (78.0-98.0); Mean Platelet Volume 8.3 fL (7.4-10.4); Platelet Count 216 thou/uL (130-400); RBC Distribution Width 13.3 % (11.5-14.5); Red Blood Cell (RBC) Count 4.65 mill/uL (4.70-6.10); White Blood Cell (WBC) Count 6.4 thou/uL (4.8-10.8)
[2021-02-26 16:33] LABS: Bacteria/HPF None Seen HPF (None Seen); Bilirubin Negative (Negative); Blood, Urine Negative (Negative); Clarity Clear (Clear); Glucose, Urine (Dipstick) Normal (Negative); Ketone, Urine Trace mg/dL (Negative); Leukocyte 75 Leu/uL (Negative); Nitrite Negative (Negative); Protein, Urine (Dipstick) 30 mg/dL (Neg-Trace); Specific Gravity, Urine 1.034 (1.002-1.036); Squamous Epithelial None Seen HPF (0-3); Urobilinogen 3 mg/dL (Less than 2)
[2021-02-26 16:57] LABS: ALT (SGPT) Less than 7 U/L (8-55); AST (SGOT) 12 U/L (5-34); Albumin 3.8 g/dL (3.4-4.8); Alkaline Phosphatase 77 U/L (40-110); Anion Gap 12 mmol/L (10-20); BUN (Urea Nitrogen) 29 mg/dL (8.4-25.7); Bilirubin, Total 0.5 mg/dL (0.2-1.2); Calc. Creatinine Clearance 0 mL/min (70-130); Calcium 8.9 mg/dL (7.8-10.44); Carbon Dioxide 24 mmol/L (23-31); Chloride 109 mmol/L (98-107); Globulin 3.2 g/dL (2.4-3.5); Glucose 109 mg/dL (83-110); Potassium 4.4 mmol/L (3.5-5.1); Sodium 141 mmol/L (136-145)
== END 2021-02-26 17:38 | disposition home or self-care (01) ==
LOC: ERS 15:23
DX: N30.00 Acute cystitis without hematuria (principal); I10 Essential (primary) hypertension; J45.909 Unspecified asthma, uncomplicated; N40.0 Benign prostatic hyperplasia without lower urinary tract symptoms; E78.5 Hyperlipidemia, unspecified; G20 Parkinson's disease
CPT/HCPCS: 36415; 51701; 80053; 81003; 81015; 85025; 87077; 87086; 87186

== ENCOUNTER 2021-02-27 09:13 | Emergency (ER) | payer MEDICARE, MEDICAID | END 2021-02-27 10:55 | disposition home or self-care (01) | LOC: ERS 09:13 | DX: N39.0 Urinary tract infection, site not specified (principal); R33.9 Retention of urine, unspecified; I10 Essential (primary) hypertension; J45.909 Unspecified asthma, uncomplicated; E78.5 Hyperlipidemia, unspecified; Z79.899 Other long term (current) drug therapy | CPT/HCPCS: 51702 ==

== ENCOUNTER 2021-02-27 16:28 | Emergency (ER) | payer MEDICARE, MEDICAID | END 2021-02-27 17:05 | disposition home or self-care (01) | LOC: ERS 16:28 | DX: T83.038A Leakage of other urinary catheter, initial encounter (principal); I10 Essential (primary) hypertension; E78.5 Hyperlipidemia, unspecified | CPT/HCPCS: 99283 ==

== ENCOUNTER 2021-03-08 12:52 | Outpatient (CLI) | payer MEDICARE, OTHER | END 2021-03-08 12:53 | disposition home or self-care (01) | LOC: BICULT 12:52 | PROVIDERS: ATTEND Internal Medicine Nephrology | DX: I12.9 Hypertensive chronic kidney disease with stage 1 through stage 4 chronic kidney disease, or unspecified chronic kidney disease (principal); N18.30 Chronic kidney disease, stage 3 unspecified; N28.1 Cyst of kidney, acquired | CPT/HCPCS: 76770 ==

== ENCOUNTER 2021-03-10 02:00 | Emergency (ER) | payer MEDICARE, OTHER ==
[2021-03-10 02:50] LABS: #Eosinphils 0.2 thou/uL (0.0-0.7); Mean Corpuscular Volume 90.1 fL (78.0-98.0)
[2021-03-10 02:52] LABS: #Lymphocytes 1.5 thou/uL (1.20-3.40); #Monocytes 0.7 thou/uL (0.11-0.59); %Basophils 0.4 % (0.0-1.0); %Eosinophils 3.5 % (0.0-10.0); %Lymphocytes 23.4 % (21.0-51.0); %Monocytes 10.2 % (0.0-10.0); %Neutrophils 62.5 % (42.0-75.0); Hemoglobin 13.8 g/dL (14.0-18.0); Mean Corpuscular HGB CONC 32.7 g/dL (32.0-36.0); Mean Corpuscular Hemoglobin 29.5 pg (27.0-31.0); Mean Platelet Volume 8.1 fL (7.4-10.4); Platelet Count 197 thou/uL (130-400); RBC Distribution Width 13.4 % (11.5-14.5); Red Blood Cell (RBC) Count 4.67 mill/uL (4.70-6.10); White Blood Cell (WBC) Count 6.4 thou/uL (4.8-10.8)
[2021-03-10 03:14] LABS: ALT (SGPT) 7 U/L (8-55); AST (SGOT) 15 U/L (5-34); Albumin 3.5 g/dL (3.4-4.8); Alkaline Phosphatase 66 U/L (40-110); Anion Gap 12 mmol/L (10-20); BUN (Urea Nitrogen) 23 mg/dL (8.4-25.7); Bilirubin, Total 0.5 mg/dL (0.2-1.2); CK (CPK) 77 U/L (30-200); Calc. Creatinine Clearance 0 mL/min (70-130); Calcium 8.9 mg/dL (7.8-10.44); Carbon Dioxide 25 mmol/L (23-31); Chloride 106 mmol/L (98-107); Globulin 2.8 g/dL (2.4-3.5); Glucose 114 mg/dL (83-110); Potassium 4.5 mmol/L (3.5-5.1); Protein, Total 6.3 g/dL (5.8-8.1); Sodium 138 mmol/L (136-145)
== END 2021-03-10 03:38 | disposition home or self-care (01) ==
LOC: ERS 02:00
DX: R07.89 Other chest pain (principal); I10 Essential (primary) hypertension; J45.909 Unspecified asthma, uncomplicated; E78.5 Hyperlipidemia, unspecified; G20 Parkinson's disease; N40.0 Benign prostatic hyperplasia without lower urinary tract symptoms; Z79.899 Other long term (current) drug therapy
CPT/HCPCS: 36415; 71045; 80053; 82550; 84484; 85025; 93005

== ENCOUNTER 2021-03-16 16:11 | Emergency (ER) | payer MEDICARE, OTHER ==
[2021-03-16 17:25] LABS: #Eosinphils 0.1 thou/uL (0.0-0.7); #Lymphocytes 1.3 thou/uL (1.20-3.40); #Monocytes 0.5 thou/uL (0.11-0.59); #Neutrophils 4.5 thou/uL (1.40-6.50); %Basophils 0.7 % (0.0-1.0); %Eosinophils 2.1 % (0.0-10.0); %Lymphocytes 20.6 % (21.0-51.0); %Monocytes 7.1 % (0.0-10.0); %Neutrophils 69.5 % (42.0-75.0); Hemoglobin 15.1 g/dL (14.0-18.0); Mean Corpuscular HGB CONC 30.8 g/dL (32.0-36.0); Mean Corpuscular Hemoglobin 27.8 pg (27.0-31.0); Mean Corpuscular Volume 90.2 fL (78.0-98.0); Mean Platelet Volume 7.9 fL (7.4-10.4); Platelet Count 225 thou/uL (130-400); RBC Distribution Width 13.2 % (11.5-14.5); Red Blood Cell (RBC) Count 5.42 mill/uL (4.70-6.10); White Blood Cell (WBC) Count 6.5 thou/uL (4.8-10.8)
[2021-03-16 17:50] LABS: ALT (SGPT) 8 U/L (8-55); AST (SGOT) 13 U/L (5-34); Albumin 4.1 g/dL (3.4-4.8); Alkaline Phosphatase 83 U/L (40-110); Anion Gap 11 mmol/L (10-20); BUN (Urea Nitrogen) 21 mg/dL (8.4-25.7); Bilirubin, Total 0.7 mg/dL (0.2-1.2); Calc. Creatinine Clearance 0 mL/min (70-130); Calcium 9.6 mg/dL (7.8-10.44); Carbon Dioxide 27 mmol/L (23-31); Chloride 105 mmol/L (98-107); Globulin 3.2 g/dL (2.4-3.5); Glucose 111 mg/dL (83-110); Potassium 4.3 mmol/L (3.5-5.1); Protein, Total 7.3 g/dL (5.8-8.1); Sodium 139 mmol/L (136-145)
== END 2021-03-16 18:47 | disposition home or self-care (01) ==
LOC: ERS 16:11
DX: F41.9 Anxiety disorder, unspecified (principal); Z79.891 Long term (current) use of opiate analgesic; Z79.899 Other long term (current) drug therapy; Z79.82 Long term (current) use of aspirin; I10 Essential (primary) hypertension; J45.909 Unspecified asthma, uncomplicated; E78.5 Hyperlipidemia, unspecified
CPT/HCPCS: 36415; 51701; 71045; 80053; 84484; 85025; 93005

== ENCOUNTER 2021-03-27 16:58 | Emergency (ER) | payer MEDICARE, MEDICAID, OTHER ==
[2021-03-27 18:03] LABS: Bilirubin Negative (Negative); Blood, Urine Negative (Negative); Clarity Clear (Clear); Glucose, Urine (Dipstick) Normal (Negative); Ketone, Urine Trace mg/dL (Negative); Leukocyte 250 Leu/uL (Negative); Nitrite Negative (Negative); Protein, Urine (Dipstick) 20 mg/dL (Neg-Trace); RBC/HPF 0-3 HPF (0-3); Specific Gravity, Urine 1.033 (1.002-1.036); Squamous Epithelial 0-3 HPF (0-3); Urobilinogen Normal mg/dL (Less than 2); pH, Urine 6.5 (5.0-9.0)
[2021-03-27 18:07] LABS: Bacteria/HPF Rare-Few HPF (None Seen)
== END 2021-03-27 18:50 | disposition home or self-care (01) ==
LOC: ERS 16:58
DX: N40.1 Benign prostatic hyperplasia with lower urinary tract symptoms (principal); R33.8 Other retention of urine; I10 Essential (primary) hypertension; J45.909 Unspecified asthma, uncomplicated; N40.0 Benign prostatic hyperplasia without lower urinary tract symptoms; E78.5 Hyperlipidemia, unspecified; Z87.19 Personal history of other diseases of the digestive system
CPT/HCPCS: 51702; 81003; 81015; 87086

== ENCOUNTER 2021-03-29 08:32 | Emergency (ER) | payer MEDICARE, MEDICAID, OTHER | END 2021-03-29 11:18 | disposition home or self-care (01) | LOC: ERS 08:32 | DX: R07.9 Chest pain, unspecified (principal); I10 Essential (primary) hypertension; E78.5 Hyperlipidemia, unspecified | CPT/HCPCS: 71045; 93005 ==

== ENCOUNTER 2021-07-31 15:53 | Emergency (ER) | payer MEDICARE, OTHER | END 2021-07-31 17:08 | disposition home or self-care (01) | LOC: ERS 15:53 | DX: R33.9 Retention of urine, unspecified (principal); I10 Essential (primary) hypertension; J45.909 Unspecified asthma, uncomplicated; E78.5 Hyperlipidemia, unspecified; G20 Parkinson's disease; Z87.19 Personal history of other diseases of the digestive system | CPT/HCPCS: 99283 ==

== ENCOUNTER 2021-08-01 16:52 | Emergency (ER) | payer MEDICARE, OTHER | END 2021-08-01 18:06 | disposition left against medical advice (07) | LOC: ERS 16:52 | DX: Z53.21 Procedure and treatment not carried out due to patient leaving prior to being seen by health care provider (principal) ==

== ENCOUNTER 2021-08-02 14:53 | Emergency (ER) | payer MEDICARE, OTHER ==
[2021-08-02 17:07] LABS: Bilirubin Negative (Negative); Blood, Urine Negative (Negative); Clarity Clear (Clear); Glucose, Urine (Dipstick) Normal (Negative); Ketone, Urine Negative (Negative); Leukocyte Negative Leu/uL (Negative); Nitrite Negative (Negative); Protein, Urine (Dipstick) Negative (Neg-Trace); Specific Gravity, Urine 1.014 (1.002-1.036); Urobilinogen Normal mg/dL (Less than 2)
== END 2021-08-02 17:28 | disposition home or self-care (01) ==
LOC: ERS 14:53
DX: T83.018A Breakdown (mechanical) of other urinary catheter, initial encounter (principal); R33.9 Retention of urine, unspecified; I10 Essential (primary) hypertension; E78.5 Hyperlipidemia, unspecified; J45.909 Unspecified asthma, uncomplicated
CPT/HCPCS: 51701; 81003

== ENCOUNTER 2021-11-22 21:29 | Emergency (ER) | payer MEDICARE, OTHER ==
[2021-11-22] MEDS ORDERED: hydrOXYzine 25 MG TAB ONE (22:12)
[2021-11-22] MEDS ORDERED: hydrOXYzine Pamoate 25 mg Capsule ONE (22:13)
[2021-11-22 22:28] LABS: #Eosinphils 0.2 thou/uL (0.0-0.7); #Lymphocytes 1.6 thou/uL (1.20-3.40); #Monocytes 0.5 thou/uL (0.11-0.59); #Neutrophils 3.3 thou/uL (1.40-6.50); %Basophils 0.8 % (0.0-1.0); %Eosinophils 4.2 % (0.0-10.0); %Lymphocytes 27.6 % (21.0-51.0); %Monocytes 8.9 % (0.0-10.0); %Neutrophils 58.5 % (42.0-75.0); Hemoglobin 13.6 g/dL (14.0-18.0); Mean Corpuscular HGB CONC 33.3 g/dL (32.0-36.0); Mean Corpuscular Hemoglobin 30.2 pg (27.0-31.0); Mean Corpuscular Volume 90.8 fL (78.0-98.0); Mean Platelet Volume 7.4 fL (7.4-10.4); Platelet Count 210 thou/uL (130-400); RBC Distribution Width 11.9 % (11.5-14.5); Red Blood Cell (RBC) Count 4.51 mill/uL (4.70-6.10); White Blood Cell (WBC) Count 5.6 thou/uL (4.8-10.8)
[2021-11-22 22:49] LABS: ALT (SGPT) Less than 7 U/L (8-55); AST (SGOT) 20 U/L (5-34); Albumin 3.9 g/dL (3.4-4.8); Alkaline Phosphatase 64 U/L (40-110); Anion Gap 10 mmol/L (10-20); BUN (Urea Nitrogen) 18 mg/dL (8.4-25.7); Bilirubin, Total 0.5 mg/dL (0.2-1.2); Calc. Creatinine Clearance 0 mL/min (70-130); Calcium 8.9 mg/dL (7.8-10.44); Carbon Dioxide 29 mmol/L (23-31); Chloride 106 mmol/L (98-107); Glucose 100 mg/dL (83-110); Potassium 4.4 mmol/L (3.5-5.1); Protein, Total 6.9 g/dL (5.8-8.1); Sodium 141 mmol/L (136-145)
== END 2021-11-22 23:36 | disposition home or self-care (01) ==
LOC: ERS 21:29
DX: R06.00 Dyspnea, unspecified (principal); I10 Essential (primary) hypertension; E78.5 Hyperlipidemia, unspecified; J45.909 Unspecified asthma, uncomplicated; R73.03 Prediabetes; Z79.899 Other long term (current) drug therapy
CPT/HCPCS: 36415; 80053; 84484; 85025; 93005; Q0177

== ENCOUNTER 2021-11-28 06:42 | Emergency (ER) | payer MEDICARE, OTHER ==
[2021-11-28 08:10] LABS: #Eosinphils 0.3 thou/uL (0.0-0.7); #Lymphocytes 1.1 thou/uL (1.20-3.40); #Monocytes 0.3 thou/uL (0.11-0.59); #Neutrophils 3.1 thou/uL (1.40-6.50); %Basophils 0.7 % (0.0-1.0); %Eosinophils 5.7 % (0.0-10.0); %Lymphocytes 21.9 % (21.0-51.0); %Monocytes 6.4 % (0.0-10.0); %Neutrophils 65.3 % (42.0-75.0); Hemoglobin 14.1 g/dL (14.0-18.0); Mean Corpuscular HGB CONC 31.5 g/dL (32.0-36.0); Mean Corpuscular Hemoglobin 29.3 pg (27.0-31.0); Mean Corpuscular Volume 93.1 fL (78.0-98.0); Mean Platelet Volume 7.5 fL (7.4-10.4); Platelet Count 189 thou/uL (130-400); RBC Distribution Width 11.7 % (11.5-14.5); Red Blood Cell (RBC) Count 4.81 mill/uL (4.70-6.10); White Blood Cell (WBC) Count 4.8 thou/uL (4.8-10.8)
[2021-11-28 08:27] LABS: ALT (SGPT) Less than 7 U/L (8-55); AST (SGOT) 12 U/L (5-34); Albumin 4.1 g/dL (3.4-4.8); Alkaline Phosphatase 65 U/L (40-110); Anion Gap 10 mmol/L (10-20); BUN (Urea Nitrogen) 20 mg/dL (8.4-25.7); Bilirubin, Total 0.6 mg/dL (0.2-1.2); Calc. Creatinine Clearance 0 mL/min (70-130); Calcium 9.2 mg/dL (7.8-10.44); Carbon Dioxide 31 mmol/L (23-31); Chloride 102 mmol/L (98-107); Globulin 2.9 g/dL (2.4-3.5); Glucose 112 mg/dL (83-110); Potassium 4.7 mmol/L (3.5-5.1); Sodium 138 mmol/L (136-145)
[2021-11-28 10:49] LABS: Troponin I Less than 0.010 ng/mL (< 0.028)
== END 2021-11-28 11:00 | disposition home or self-care (01) ==
LOC: ERS 06:42
DX: R07.9 Chest pain, unspecified (principal); I10 Essential (primary) hypertension; E78.5 Hyperlipidemia, unspecified; J45.909 Unspecified asthma, uncomplicated; Z79.82 Long term (current) use of aspirin; Z79.899 Other long term (current) drug therapy
CPT/HCPCS: 36415; 71045; 80053; 84484; 85025; 93005

== ENCOUNTER 2022-01-24 09:39 | Emergency (ER) | payer OTHER, MEDICARE ==
[2022-01-24] MEDS ORDERED: Nitroglycerin 0.4 MG TAB 1 EACH ONE (10:53)
[2022-01-24] MEDS ORDERED: Aspirin Chewable 81 MG TAB ONE (10:54)
[2022-01-24 11:18] LABS: #Eosinphils 0.2 thou/uL (0.0-0.7); #Lymphocytes 1.3 thou/uL (1.20-3.40); #Monocytes 0.4 thou/uL (0.11-0.59); %Basophils 0.1 % (0.0-1.0); %Eosinophils 2.7 % (0.0-10.0); %Lymphocytes 21.8 % (21.0-51.0); %Monocytes 6.3 % (0.0-10.0); %Neutrophils 69.1 % (42.0-75.0); Hemoglobin 13.8 g/dL (14.0-18.0); Mean Corpuscular HGB CONC 32.6 g/dL (32.0-36.0); Mean Corpuscular Hemoglobin 30.1 pg (27.0-31.0); Mean Corpuscular Volume 92.2 fL (78.0-98.0); Mean Platelet Volume 7.9 fL (7.4-10.4); Platelet Count 194 thou/uL (130-400); RBC Distribution Width 12.5 % (11.5-14.5); Red Blood Cell (RBC) Count 4.57 mill/uL (4.70-6.10); White Blood Cell (WBC) Count 5.8 thou/uL (4.8-10.8)
[2022-01-24 11:31] LABS: Anion Gap 11 mmol/L (10-20); BUN (Urea Nitrogen) 19 mg/dL (8.4-25.7); Calc. Creatinine Clearance 0 mL/min (70-130); Calcium 9.2 mg/dL (7.8-10.44); Carbon Dioxide 30 mmol/L (23-31); Chloride 103 mmol/L (98-107); Estimated GFR 78; Glucose 101 mg/dL (83-110); Potassium 4.4 mmol/L (3.5-5.1); Sodium 140 mmol/L (136-145)
[2022-01-24 11:32] LABS: ALT (SGPT) 8 U/L (8-55); AST (SGOT) 22 U/L (5-34); Albumin 4.2 g/dL (3.4-4.8); Alkaline Phosphatase 60 U/L (40-110); Bilirubin, Total 0.7 mg/dL (0.2-1.2); Globulin 3.2 g/dL (2.4-3.5); Lipase 33 U/L (8-78); Protein, Total 7.4 g/dL (5.8-8.1)
== END 2022-01-24 16:26 | disposition home or self-care (01) ==
LOC: ERS 09:39
DX: R07.89 Other chest pain (principal); I10 Essential (primary) hypertension; E78.5 Hyperlipidemia, unspecified; J45.909 Unspecified asthma, uncomplicated; Z79.82 Long term (current) use of aspirin; Z79.899 Other long term (current) drug therapy
CPT/HCPCS: 36415; 71045; 80053; 83690; 84484; 85025; 93005; 94760

== ENCOUNTER 2022-02-01 05:58 | Inpatient (IN) | payer OTHER ==
[2022-02-01] MEDS ORDERED: Lidocaine 1% (PF) 30 ML VIAL ONE (06:23)
[2022-02-01 06:55] LABS: #Eosinphils 0.2 thou/uL (0.0-0.7); #Lymphocytes 1.4 thou/uL (1.20-3.40); #Monocytes 0.4 thou/uL (0.11-0.59); #Neutrophils 3.4 thou/uL (1.40-6.50); %Basophils 0.7 % (0.0-1.0); %Eosinophils 4.2 % (0.0-10.0); %Lymphocytes 25.3 % (21.0-51.0); %Monocytes 6.6 % (0.0-10.0); %Neutrophils 63.1 % (42.0-75.0); Hemoglobin 13.9 g/dL (14.0-18.0); Mean Corpuscular HGB CONC 32.3 g/dL (32.0-36.0); Mean Corpuscular Hemoglobin 29.9 pg (27.0-31.0); Mean Corpuscular Volume 92.6 fL (78.0-98.0); Mean Platelet Volume 7.2 fL (7.4-10.4); Platelet Count 213 thou/uL (130-400); RBC Distribution Width 12.2 % (11.5-14.5); Red Blood Cell (RBC) Count 4.64 mill/uL (4.70-6.10); White Blood Cell (WBC) Count 5.4 thou/uL (4.8-10.8)
[2022-02-01 07:28] LABS: Anion Gap 11 mmol/L (10-20); BUN (Urea Nitrogen) 20 mg/dL (8.4-25.7); Calc. Creatinine Clearance 0 mL/min (70-130); Carbon Dioxide 29 mmol/L (23-31); Cardiac Risk 2.3 (Less than 4.5); Chloride 103 mmol/L (98-107); Cholesterol 118 mg/dl (< 200 Desired); Estimated GFR 66; Glucose 130 mg/dL (83-110); HDL Cholesterol 52 mg/dL (>60 Neg Risk); LDL Cholesterol, Calculated 54 mg/dL; Potassium 4.2 mmol/L (3.5-5.1); Sodium 139 mmol/L (136-145); Triglycerides 59 mg/dL (Less than 150)
[2022-02-01] MEDS ORDERED: Heparin 10,000 UNITS/ 10 ML VIAL ONE (07:33)
[2022-02-01] MEDS ORDERED: Verapamil 5 MG/2 ML VIAL ONE (07:33)
[2022-02-01] MEDS ORDERED: Nitroglycerin 100MG/250ML BOT 250 ML ONE (07:33)
[2022-02-01] MEDS ORDERED: Midazolam HCl 2 mg/2 ml Vial ONE (07:41)
[2022-02-01] MEDS ORDERED: Iopamidol 370 76% 100 ML VIAL ONE (08:47)
[2022-02-01] MEDS ORDERED: Acetaminophen/Codeine 30-300mg Tablet PO PRN ×2 (10:45)
[2022-02-01] MEDS ORDERED: Communication Order-Pharmacy FS SCH (12:46)
[2022-02-01] MEDS ORDERED: Acetaminophen 500 MG TAB PO PRN (13:11)
[2022-02-01] MEDS ORDERED: traMADol HCl 50 MG TAB PO PRN (14:12)
[2022-02-01 14:13] VITALS: BMI 25.4
[2022-02-01] MEDS: Gabapentin 300 MG CAP PO SCH ×2 (14:54→20:46)
[2022-02-01] MEDS: Carbidopa/Levodopa 25-100 mg Tablet PO SCH ×2 (14:54→20:45)
[2022-02-01] MEDS: Nitroglycerin 0.4 MG TAB (25 Tab Bottle) SL PRN ×3 (17:25→17:37)
[2022-02-01] MEDS ORDERED: Enoxaparin Sodium 60 MG/0.6 ML SYRINGE SC SCH (17:45)
[2022-02-01] MEDS ORDERED: Morphine 2 MG/ML VIAL SLOW IVP SCH (18:00)
[2022-02-01] MEDS ORDERED: clonazePAM 1 MG TAB PO SCH (21:00)
[2022-02-01] MEDS ORDERED: Atorvastatin Calcium 40 MG TAB PO SCH (21:00)
[2022-02-02 00:49] LABS: SARS-CoV-2 NAA Rapid Test DETECTED (NotDetected)
[2022-02-02] MEDS ORDERED: Albuterol 200 PUFF (6.7GM INHALER) INH PRN (00:57)
[2022-02-02] MEDS ORDERED: Albumin 5% 500 ML ONE (06:41)
[2022-02-02] MEDS ORDERED: Heparin 10,000 UNITS/1 ML VIAL 30,000 UNITS in Sodium Chloride 0.9% 1,000 ML FS SCH (07:00)
[2022-02-02] MEDS: Carbidopa/Levodopa 25-100 mg Tablet PO SCH ×3 (07:10→20:16)
[2022-02-02] MEDS: Gabapentin 300 MG CAP PO SCH (07:10)
[2022-02-02] MEDS ORDERED: fentaNYL Citrate/PF 100 MCG/2 ML SYRINGE ONE (07:36)
[2022-02-02] MEDS ORDERED: Midazolam HCl 5 mg/5 ml Vial ONE (07:37)
[2022-02-02] MEDS ORDERED: Magnesium Sulfate 1 GM/2 ML VIAL ONE (08:29)
[2022-02-02] MEDS ORDERED: Heparin 5,000 UNITS/ML VIAL ONE (08:29)
[2022-02-02] MEDS ORDERED: Mannitol 12.5 GM/50 ML ONE (08:29)
[2022-02-02] MEDS ORDERED: PROPOFOL 200 MG/20 ML VIAL ONE (08:29)
[2022-02-02] MEDS ORDERED: Calcium Chloride 1 GM/10 ML Abboject SYRINGE ONE (08:29)
[2022-02-02] MEDS ORDERED: Cardioplegic Soln 1,000 ML BAG ONE (08:29)
[2022-02-02] MEDS ORDERED: Protamine Sulfate 250 MG/25 ML VIAL ONE (08:29)
[2022-02-02] MEDS ORDERED: Rocuronium Bromide 10 MG/ML (10ML VIAL) ONE (08:29)
[2022-02-02] MEDS ORDERED: Norepinephrine 4 MG/4 ML VIAL ONE (08:29)
[2022-02-02] MEDS ORDERED: Vecuronium 10 MG VIAL ONE (08:29)
[2022-02-02] MEDS ORDERED: Thrombin 5000 UNITS/5 ML VIAL ONE (08:29)
[2022-02-02] MEDS ORDERED: Lidocaine 2% PF 100 mg/5 ml Syringe ONE (08:29)
[2022-02-02] MEDS ORDERED: Papaverine 60 MG/2 ML VIAL ONE (08:29)
[2022-02-02] MEDS ORDERED: Sodium Bicarb 50 MEQ/50 ML Abboject 8.4% SYRINGE ONE (08:29)
[2022-02-02] MEDS ORDERED: Heparin 30,000 units/30 ml VIAL ONE (08:29)
[2022-02-02] MEDS ORDERED: Aminocaproic Acid 5 GM/20 ML VIAL ONE (08:29)
[2022-02-02] MEDS ORDERED: Esmolol 100 MG/10 ML VIAL ONE (08:29)
[2022-02-02] MEDS ORDERED: Aspirin 81 mg Enteric Coated Tablet PO SCH (09:00)
[2022-02-02] MEDS ORDERED: Amlodipine 10 MG TAB PO SCH (09:00)
[2022-02-02] MEDS ORDERED: clonazePAM 1 MG TAB PO SCH (09:00)
[2022-02-02] MEDS ORDERED: Finasteride 5 MG TAB PO SCH (09:00)
[2022-02-02] MEDS ORDERED: Mag-Al 1200 mg/1200 mg/30 ML UDCUP PO PRN (12:39)
[2022-02-02] MEDS ORDERED: Post-Op Insulin Drip Protocol IVPB ONE (12:39)
[2022-02-02] MEDS ORDERED: Promethazine HCl 25 MG/ML VIAL IM PRN (12:39)
[2022-02-02] MEDS ORDERED: Nitroglycerin 50 MG/250 ML BOT 250 ML IVPB PRN (12:39)
[2022-02-02] MEDS ORDERED: Hetastarch 6% 500 ML 500 ML IVPB PRN (12:39)
[2022-02-02] MEDS ORDERED: Bisacodyl 10 MG SUPP PR PRN (12:39)
[2022-02-02] MEDS ORDERED: Ondansetron PF 4 MG/2 ML Vial IVP PRN (12:39)
[2022-02-02] MEDS ORDERED: niCARdipine 25 MG in Sodium Chloride 0.9% 250 ML 250 ML IVPB PRN (12:39)
[2022-02-02] MEDS ORDERED: DOPamine 400 MG/D5W 250 ML 250 ML IVPB PRN (12:39)
[2022-02-02] MEDS ORDERED: hydrALAZINE 20 MG/ML VIAL SLOW IVP PRN (12:39)
[2022-02-02] MEDS ORDERED: Bisacodyl 5 MG TAB PO PRN (12:39)
[2022-02-02] MEDS ORDERED: Potassium Chloride 20 MEQ/100 ML PREMIX BAG IVPB PRN (12:39)
[2022-02-02] MEDS ORDERED: NOREPINEPHRINE 8 MG/250 ML-D5W 250 ML IVPB PRN (12:39)
[2022-02-02] MEDS ORDERED: Morphine 2 MG/ML VIAL SLOW IVP PRN (12:39)
[2022-02-02] MEDS ORDERED: Guaifenesin DM 100-10/5 ML UDCUP PO PRN (12:39)
[2022-02-02] MEDS ORDERED: Dextrose 50% Abboject 50 ML SYRINGE SLOW IVP PRN (13:15)
[2022-02-02] MEDS ORDERED: Dextrose 5% in Water 1,000 ML IV PRN (13:15)
[2022-02-02] MEDS ORDERED: HUMULIN R 100 UNITS in Sodium Chloride 0.9% 100 ML IVPB SCH (13:15)
[2022-02-02] MEDS ORDERED: Insulin Regular 300 UNITS/3 ML VIAL SC PRN (13:15)
[2022-02-02 13:17] LABS: #Eosinphils 0.1 thou/uL (0.0-0.7); #Lymphocytes 0.9 thou/uL (1.20-3.40); #Monocytes 0.9 thou/uL (0.11-0.59); #Neutrophils 12.2 thou/uL (1.40-6.50); %Eosinophils 0.4 % (0.0-10.0); %Lymphocytes 6.7 % (21.0-51.0); %Monocytes 6.3 % (0.0-10.0); %Neutrophils 86.6 % (42.0-75.0); Hemoglobin 11.6 g/dL (14.0-18.0); Mean Corpuscular HGB CONC 32.4 g/dL (32.0-36.0); Mean Corpuscular Hemoglobin 29.9 pg (27.0-31.0); Mean Corpuscular Volume 92.5 fL (78.0-98.0); Mean Platelet Volume 7.5 fL (7.4-10.4); Platelet Count 160 thou/uL (130-400); RBC Distribution Width 12.2 % (11.5-14.5); Red Blood Cell (RBC) Count 3.87 mill/uL (4.70-6.10); White Blood Cell (WBC) Count 14.1 thou/uL (4.8-10.8)
[2022-02-02 13:31] LABS: INR-International Normal Ratio 1.3; Prothrombin Time 16.2 sec (12.0-14.7)
[2022-02-02 13:32] LABS: PTT 34.2 sec (22.9-36.1)
[2022-02-02] MEDS: Fentanyl 100 MCG/2 ML VIAL SLOW IVP PRN (13:36)
[2022-02-02 13:37] LABS: Actual Bicarbonate (HCO3a) 21.6 mEq/L (22-28); Base Excess (BEa) -5.4 mEq/L (-2.0 to +3.0); CO2 Tension 48.1 mmHg (35.0-45.0); Calcium, Ionized (arterial) 1.09 mmol/L (1.12-1.30); Hemoglobin (Hb) 12.3 g/dL (14.0-18.0); O2 Tension (PaO2), arterial 82.2 mmHg (> 70.0); Potassium - ABG Lab 4.02 mmol/L (3.70-5.30); Puncture Site Arterial Line; pH, Arterial 7.27 (7.35-7.45)
[2022-02-02] MEDS: Lactated Ringer's 1,000 ML IV SCH (13:37)
[2022-02-02 13:38] LABS: ALV-art Gradient 214.175 mmHg (0-20)
[2022-02-02 13:46] LABS: Anion Gap 13 mmol/L (10-20); BUN (Urea Nitrogen) 16 mg/dL (8.4-25.7); Calc. Creatinine Clearance 71 mL/min (70-130); Calcium 7.6 mg/dL (7.8-10.44); Carbon Dioxide 23 mmol/L (23-31); Chloride 109 mmol/L (98-107); Estimated GFR 92; Glucose 181 mg/dL (83-110); Sodium 141 mmol/L (136-145)
[2022-02-02] MEDS: HYDROcodone/Acetaminophen 5/325 mg Tablet PO PRN ×2 (14:43→21:25)
[2022-02-02] MEDS: CEFAZOLIN 2 GM in Sodium Chloride 0.9% 100 ML IVPB SCH ×2 (14:45→22:43)
[2022-02-02] MEDS: Ketorolac Tromethamine 30 MG/ML VIAL IVP SCH ×2 (18:00→22:42)
[2022-02-02 18:15] LABS: Hemoglobin 11.6 g/dL (14.0-18.0)
[2022-02-02] MEDS: Famotidine/PF 20 mg/2ml Vial SLOW IVP SCH (20:17)
[2022-02-02] MEDS ORDERED: Simvastatin 10 MG TAB PO SCH (21:00)
[2022-02-02 21:02] LABS: Potassium 4.3 mmol/L (3.5-5.1)
[2022-02-03] MEDS: Lactated Ringer's 1,000 ML IV SCH ×2 (02:14→15:32)
[2022-02-03] MEDS: Fentanyl 100 MCG/2 ML VIAL SLOW IVP PRN ×3 (03:34→23:27)
[2022-02-03] MEDS: Ketorolac Tromethamine 30 MG/ML VIAL IVP SCH ×2 (03:56→11:13)
[2022-02-03 04:54] LABS: #Lymphocytes 0.6 thou/uL (1.20-3.40); #Neutrophils 10.9 thou/uL (1.40-6.50); %Neutrophils 86.9 % (42.0-75.0); Hemoglobin 10.7 g/dL (14.0-18.0); Mean Corpuscular HGB CONC 32.6 g/dL (32.0-36.0); Mean Corpuscular Hemoglobin 30.6 pg (27.0-31.0); Mean Corpuscular Volume 93.7 fL (78.0-98.0); Mean Platelet Volume 7.8 fL (7.4-10.4); Platelet Count 173 thou/uL (130-400); RBC Distribution Width 12.2 % (11.5-14.5); White Blood Cell (WBC) Count 12.6 thou/uL (4.8-10.8)
[2022-02-03 05:16] LABS: Anion Gap 8 mmol/L (10-20); BUN (Urea Nitrogen) 16 mg/dL (8.4-25.7); Calc. Creatinine Clearance 64 mL/min (70-130); Calcium 8.1 mg/dL (7.8-10.44); Carbon Dioxide 28 mmol/L (23-31); Chloride 107 mmol/L (98-107); Estimated GFR 88; Glucose 102 mg/dL (83-110); Potassium 4.3 mmol/L (3.5-5.1); Sodium 139 mmol/L (136-145)
[2022-02-03] MEDS: CEFAZOLIN 2 GM in Sodium Chloride 0.9% 100 ML IVPB SCH (07:55)
[2022-02-03] MEDS ORDERED: Insulin Glargine 30 UNITS/0.3 ML VIAL SC SCH (08:30)
[2022-02-03] MEDS: Aspirin Chewable 81 MG TAB PO SCH (08:49)
[2022-02-03] MEDS: Carbidopa/Levodopa 25-100 mg Tablet PO SCH ×3 (08:50→20:38)
[2022-02-03] MEDS: HYDROcodone/Acetaminophen 5/325 mg Tablet PO PRN ×3 (08:50→19:44)
[2022-02-03] MEDS: Famotidine/PF 20 mg/2ml Vial SLOW IVP SCH (08:51)
[2022-02-03] MEDS ORDERED: Lorazepam (BATCHED) 2 MG/ML SYR SLOW IVP PRN (11:54)
[2022-02-03] MEDS: Lorazepam 0.5 MG TAB PO PRN (16:09)
[2022-02-03] MEDS ORDERED: Nitroglycerin 0.4 MG TAB (25 Tab Bottle) SL PRN (19:12)
[2022-02-03] MEDS ORDERED: Bisacodyl 10 MG SUPP PR PRN (19:12)
[2022-02-03] MEDS ORDERED: Mineral Oil ENEMA PR PRN (19:12)
[2022-02-03] MEDS ORDERED: Mag-Al 1200 mg/1200 mg/30 ML UDCUP PO PRN (19:12)
[2022-02-03] MEDS ORDERED: Dextrose 5% in Water 1,000 ML IV PRN (19:30)
[2022-02-03] MEDS ORDERED: clonazePAM 1 MG TAB PO SCH (19:30)
[2022-02-03] MEDS ORDERED: Dextrose 50% Abboject 50 ML SYRINGE SLOW IVP PRN (19:30)
[2022-02-03] MEDS ORDERED: Finasteride 5 MG TAB PO SCH (19:30)
[2022-02-03] MEDS: Atorvastatin Calcium 40 MG TAB PO SCH (20:38)
[2022-02-03] MEDS: Tamsulosin HCl 0.4 MG CAP PO SCH (20:38)
[2022-02-03] MEDS: Insulin Regular 300 UNITS/3 ML VIAL SC PRN (20:40)
[2022-02-03 22:28] LABS: Glucose 160 mg/dL (83-110)
[2022-02-04] MEDS: HYDROcodone/Acetaminophen 5/325 mg Tablet PO PRN ×5 (00:25→19:45)
[2022-02-04] MEDS: Insulin Regular 300 UNITS/3 ML VIAL SC PRN ×2 (00:26→04:27)
[2022-02-04] MEDS: Fentanyl 100 MCG/2 ML VIAL SLOW IVP PRN (01:54)
[2022-02-04 03:58] LABS: #Lymphocytes 0.9 thou/uL (1.20-3.40); #Monocytes 0.8 thou/uL (0.11-0.59); #Neutrophils 8.7 thou/uL (1.40-6.50); %Basophils 0.1 % (0.0-1.0); %Eosinophils 0.1 % (0.0-10.0); %Lymphocytes 8.5 % (21.0-51.0); %Monocytes 7.6 % (0.0-10.0); %Neutrophils 83.7 % (42.0-75.0); Hemoglobin 9.6 g/dL (14.0-18.0); Mean Corpuscular HGB CONC 32.3 g/dL (32.0-36.0); Mean Corpuscular Hemoglobin 29.9 pg (27.0-31.0); Mean Corpuscular Volume 92.4 fL (78.0-98.0); Platelet Count 152 thou/uL (130-400); RBC Distribution Width 12.6 % (11.5-14.5); Red Blood Cell (RBC) Count 3.21 mill/uL (4.70-6.10); White Blood Cell (WBC) Count 10.4 thou/uL (4.8-10.8)
[2022-02-04 04:17] LABS: Anion Gap 10 mmol/L (10-20); BUN (Urea Nitrogen) 20 mg/dL (8.4-25.7); Calc. Creatinine Clearance 72 mL/min (70-130); Calcium 8.1 mg/dL (7.8-10.44); Carbon Dioxide 29 mmol/L (23-31); Chloride 104 mmol/L (98-107); Estimated GFR 90; Glucose 160 mg/dL (83-110); Potassium 3.9 mmol/L (3.5-5.1); Sodium 139 mmol/L (136-145)
[2022-02-04] MEDS ORDERED: Diltiazem 125 MG in Sodium Chloride 0.9% 100 ML IVPB SCH (09:00)
[2022-02-04] MEDS ORDERED: Diltiazem HCl 125 MG in Premix Bag 1 BAG IVPB SCH ×2 (09:15→12:31)
[2022-02-04] MEDS: Carbidopa/Levodopa 25-100 mg Tablet PO SCH ×3 (09:20→19:46)
[2022-02-04] MEDS: Finasteride 5 MG TAB PO SCH (09:21)
[2022-02-04] MEDS: Aspirin Chewable 81 MG TAB PO SCH (09:21)
[2022-02-04] MEDS: clonazePAM 1 MG TAB PO SCH ×2 (09:22→19:46)
[2022-02-04] MEDS: Furosemide 40 MG TAB PO SCH (09:22)
[2022-02-04] MEDS ORDERED: Metoprolol Tartrate 5 MG/5 ML VIAL IVP PRN (13:57)
[2022-02-04] MEDS ORDERED: Metoprolol Tartrate 5 MG/5 ML VIAL ONE (14:03)
[2022-02-04] MEDS: Lorazepam 0.5 MG TAB PO PRN (14:39)
[2022-02-04] MEDS: Tamsulosin HCl 0.4 MG CAP PO SCH (19:45)
[2022-02-04] MEDS: Atorvastatin Calcium 40 MG TAB PO SCH (19:46)
[2022-02-04] MEDS: Diltiazem HCl 125 MG in Premix Bag 1 BAG IVPB SCH (21:00)
[2022-02-05] MEDS: HYDROcodone/Acetaminophen 5/325 mg Tablet PO PRN ×5 (03:40→20:06)
[2022-02-05] MEDS: clonazePAM 1 MG TAB PO SCH ×2 (08:05→21:58)
[2022-02-05] MEDS: Furosemide 40 MG TAB PO SCH (08:05)
[2022-02-05] MEDS: Carbidopa/Levodopa 25-100 mg Tablet PO SCH ×3 (08:05→20:07)
[2022-02-05] MEDS: Diltiazem HCl 125 MG in Premix Bag 1 BAG IVPB SCH (08:05)
[2022-02-05] MEDS: Finasteride 5 MG TAB PO SCH (08:05)
[2022-02-05] MEDS: Aspirin Chewable 81 MG TAB PO SCH (08:05)
[2022-02-05] MEDS ORDERED: Diltiazem HCl 125 MG in Premix Bag 1 BAG IVPB SCH (08:24)
[2022-02-05] MEDS: Lorazepam 0.5 MG TAB PO PRN (08:42)
[2022-02-05] MEDS: Acetaminophen 325 MG TAB PO PRN (11:12)
[2022-02-05] MEDS ORDERED: Furosemide 40 MG/4 ML VIAL SLOW IVP SCH (16:30)
[2022-02-05] MEDS: Tamsulosin HCl 0.4 MG CAP PO SCH (20:06)
[2022-02-05] MEDS: Atorvastatin Calcium 40 MG TAB PO SCH (20:06)
[2022-02-06] MEDS ORDERED: Sodium Chloride 0.9% 500 ML IVPB SCH (01:45)
[2022-02-06] MEDS: Amiodarone 450 MG, Admixture Fee 1 EACH in Dextrose 5% in Water 250 ML IVPB SCH ×2 (02:04→10:31)
[2022-02-06 05:02] LABS: #Eosinphils 0.3 thou/uL (0.0-0.7); #Lymphocytes 0.6 thou/uL (1.20-3.40); #Monocytes 0.6 thou/uL (0.11-0.59); #Neutrophils 5.2 thou/uL (1.40-6.50); %Basophils 0.1 % (0.0-1.0); %Lymphocytes 9.4 % (21.0-51.0); %Monocytes 8.8 % (0.0-10.0); %Neutrophils 77.8 % (42.0-75.0); Hemoglobin 8.7 g/dL (14.0-18.0); Mean Corpuscular HGB CONC 32.2 g/dL (32.0-36.0); Mean Corpuscular Hemoglobin 29.8 pg (27.0-31.0); Mean Corpuscular Volume 92.5 fL (78.0-98.0); Mean Platelet Volume 8.1 fL (7.4-10.4); Platelet Count 165 thou/uL (130-400); RBC Distribution Width 12.1 % (11.5-14.5); White Blood Cell (WBC) Count 6.6 thou/uL (4.8-10.8)
[2022-02-06 05:24] LABS: Anion Gap 11 mmol/L (10-20); BUN (Urea Nitrogen) 18 mg/dL (8.4-25.7); Calc. Creatinine Clearance 74 mL/min (70-130); Calcium 8.1 mg/dL (7.8-10.44); Carbon Dioxide 33 mmol/L (23-31); Chloride 96 mmol/L (98-107); Estimated GFR 90; Glucose 154 mg/dL (83-110); Potassium 3.3 mmol/L (3.5-5.1); Sodium 137 mmol/L (136-145)
[2022-02-06] MEDS: HYDROcodone/Acetaminophen 5/325 mg Tablet PO PRN ×4 (06:33→20:38)
[2022-02-06] MEDS: Bisacodyl 5 MG TAB PO PRN (06:33)
[2022-02-06] MEDS: Furosemide 40 MG TAB PO SCH (08:15)
[2022-02-06] MEDS: Carbidopa/Levodopa 25-100 mg Tablet PO SCH ×3 (08:16→20:37)
[2022-02-06] MEDS: clonazePAM 1 MG TAB PO SCH ×2 (08:16→20:36)
[2022-02-06] MEDS: Aspirin Chewable 81 MG TAB PO SCH (08:16)
[2022-02-06] MEDS: Finasteride 5 MG TAB PO SCH (08:17)
[2022-02-06] MEDS ORDERED: Nitroglycerin 0.4 MG TAB (25 Tab Bottle) SL PRN (11:24)
[2022-02-06] MEDS: Tamsulosin HCl 0.4 MG CAP PO SCH (20:37)
[2022-02-06] MEDS: Atorvastatin Calcium 40 MG TAB PO SCH (20:38)
[2022-02-06] MEDS: Albuterol 200 PUFF (6.7GM INHALER) INH PRN (21:51)
[2022-02-07] MEDS: Amiodarone 450 MG, Admixture Fee 1 EACH in Dextrose 5% in Water 250 ML IVPB SCH (00:42)
[2022-02-07] MEDS: HYDROcodone/Acetaminophen 5/325 mg Tablet PO PRN ×6 (00:43→21:24)
[2022-02-07] MEDS: Aspirin Chewable 81 MG TAB PO SCH (08:35)
[2022-02-07] MEDS: Carbidopa/Levodopa 25-100 mg Tablet PO SCH ×3 (08:35→21:23)
[2022-02-07] MEDS: Amiodarone 200 MG TAB PO SCH ×2 (08:35→21:23)
[2022-02-07] MEDS: clonazePAM 1 MG TAB PO SCH ×2 (08:36→21:23)
[2022-02-07] MEDS: Finasteride 5 MG TAB PO SCH (08:36)
[2022-02-07] MEDS: Furosemide 40 MG TAB PO SCH (08:36)
[2022-02-07] MEDS: Polyethylene Glycol 3350 17 GM Packet PO SCH (08:38)
[2022-02-07] MEDS: Bisacodyl 5 MG TAB PO PRN (15:48)
[2022-02-07] MEDS: Atorvastatin Calcium 40 MG TAB PO SCH (21:23)
[2022-02-07] MEDS: Tamsulosin HCl 0.4 MG CAP PO SCH (21:23)
[2022-02-08] MEDS: HYDROcodone/Acetaminophen 5/325 mg Tablet PO PRN ×4 (03:33→20:22)
[2022-02-08] MEDS: Bisacodyl 5 MG TAB PO PRN (03:33)
[2022-02-08] MEDS: Aspirin Chewable 81 MG TAB PO SCH (08:28)
[2022-02-08] MEDS: Amiodarone 200 MG TAB PO SCH ×2 (08:28→20:21)
[2022-02-08] MEDS: Finasteride 5 MG TAB PO SCH (08:29)
[2022-02-08] MEDS: Polyethylene Glycol 3350 17 GM Packet PO SCH (08:29)
[2022-02-08] MEDS: Carbidopa/Levodopa 25-100 mg Tablet PO SCH ×3 (08:29→20:21)
[2022-02-08] MEDS: clonazePAM 1 MG TAB PO SCH ×2 (08:29→20:21)
[2022-02-08] MEDS: Furosemide 40 MG TAB PO SCH (08:29)
[2022-02-08] MEDS: Bisacodyl 5 MG TAB PO SCH (08:29)
[2022-02-08 09:39] LABS: #Eosinphils 0.3 thou/uL (0.0-0.7); #Monocytes 0.6 thou/uL (0.11-0.59); #Neutrophils 4.7 thou/uL (1.40-6.50); %Basophils 0.1 % (0.0-1.0); %Eosinophils 3.9 % (0.0-10.0); %Lymphocytes 15.4 % (21.0-51.0); %Neutrophils 71.7 % (42.0-75.0); Hemoglobin 10.5 g/dL (14.0-18.0); Mean Corpuscular HGB CONC 31.8 g/dL (32.0-36.0); Mean Corpuscular Volume 94.3 fL (78.0-98.0); Mean Platelet Volume 7.4 fL (7.4-10.4); Platelet Count 333 thou/uL (130-400); RBC Distribution Width 12.1 % (11.5-14.5); Red Blood Cell (RBC) Count 3.48 mill/uL (4.70-6.10); White Blood Cell (WBC) Count 6.5 thou/uL (4.8-10.8)
[2022-02-08 09:54] LABS: Anion Gap 14 mmol/L (10-20); BUN (Urea Nitrogen) 14 mg/dL (8.4-25.7); Calc. Creatinine Clearance 61 mL/min (70-130); Calcium 8.8 mg/dL (7.8-10.44); Carbon Dioxide 32 mmol/L (23-31); Chloride 96 mmol/L (98-107); Estimated GFR 74; Glucose 144 mg/dL (83-110); Potassium 3.7 mmol/L (3.5-5.1); Sodium 138 mmol/L (136-145)
[2022-02-08] MEDS: Lorazepam 0.5 MG TAB PO PRN (14:57)
[2022-02-08] MEDS: Atorvastatin Calcium 40 MG TAB PO SCH (20:21)
[2022-02-08] MEDS: Tamsulosin HCl 0.4 MG CAP PO SCH (20:21)
[2022-02-09] MEDS: HYDROcodone/Acetaminophen 5/325 mg Tablet PO PRN ×4 (02:21→21:35)
[2022-02-09] MEDS ORDERED: Furosemide 20 MG/2 ML VIAL SLOW IVP SCH (07:00)
[2022-02-09] MEDS ORDERED: Ipratropium/Albuterol Sulfate 4 GM AER IH PRN (07:14)
[2022-02-09] MEDS: Aspirin Chewable 81 MG TAB PO SCH (10:06)
[2022-02-09] MEDS: Amiodarone 200 MG TAB PO SCH ×2 (10:06→21:25)
[2022-02-09] MEDS: Bisacodyl 5 MG TAB PO SCH (10:07)
[2022-02-09] MEDS: Furosemide 40 MG TAB PO SCH (10:07)
[2022-02-09] MEDS: clonazePAM 1 MG TAB PO SCH ×2 (10:07→21:25)
[2022-02-09] MEDS: Finasteride 5 MG TAB PO SCH (10:07)
[2022-02-09] MEDS: Carbidopa/Levodopa 25-100 mg Tablet PO SCH ×3 (10:07→21:25)
[2022-02-09] MEDS: Polyethylene Glycol 3350 17 GM Packet PO SCH (10:08)
[2022-02-09] MEDS ORDERED: Zolpidem Tartrate 5 MG TAB PO PRN (12:43)
[2022-02-09] MEDS ORDERED: Ipratropium/Albuterol Sulfate 4 GM AER IH SCH (13:00)
[2022-02-09] MEDS: Ipratropium/Albuterol Sulfate 4 GM AER IH SCH (19:29)
[2022-02-09] MEDS: Albuterol 200 PUFF (6.7GM INHALER) INH PRN (19:39)
[2022-02-09] MEDS: Tamsulosin HCl 0.4 MG CAP PO SCH (21:24)
[2022-02-09] MEDS: Atorvastatin Calcium 40 MG TAB PO SCH (21:25)
[2022-02-10] MEDS: Acetaminophen 325 MG TAB PO PRN ×2 (00:22→06:28)
[2022-02-10] MEDS ORDERED: Albuterol 200 PUFF (6.7GM INHALER) INH SCH (01:00)
[2022-02-10] MEDS: Ipratropium/Albuterol Sulfate 4 GM AER IH SCH (03:02)
[2022-02-10] MEDS: HYDROcodone/Acetaminophen 5/325 mg Tablet PO PRN ×2 (03:42→08:31)
[2022-02-10] MEDS ORDERED: Tiotropium Bromide 4 GM INHALER IH SCH (07:00)
[2022-02-10] MEDS ORDERED: Amoxicillin/Potassium Clav 500 MG TAB PO SCH (09:00)
[2022-02-10] MEDS: Carbidopa/Levodopa 25-100 mg Tablet PO SCH (10:34)
[2022-02-10] MEDS: Amiodarone 200 MG TAB PO SCH (10:34)
[2022-02-10] MEDS: Finasteride 5 MG TAB PO SCH (10:35)
[2022-02-10] MEDS: Polyethylene Glycol 3350 17 GM Packet PO SCH (10:35)
[2022-02-10] MEDS: clonazePAM 1 MG TAB PO SCH (10:35)
[2022-02-10] MEDS: Aspirin Chewable 81 MG TAB PO SCH (10:35)
[2022-02-10] MEDS: Bisacodyl 5 MG TAB PO SCH (10:35)
[2022-02-10] MEDS ORDERED: Albuterol 200 PUFF (6.7GM INHALER) INH PRN (11:00)
[2022-02-10 14:50] VITALS: BP 146/67; TEMP 97.6
[2022-02-13 14:08] LABS: Actual Bicarbonate (HCO3a) 25.2 mEq/L (22-28); Analyzer IN Cardio OR; Base Excess (BEa) -0.4 mEq/L (-2.0 to +3.0); CO2 Tension 45.8 mmHg (35.0-45.0); Calcium, Ionized (arterial) 0.99 mmol/L (1.12-1.30); Carboxyhemoglobin (COHb) 0.3 gm% (0.0-3.0); Hemoglobin (Hb) 8.6 g/dL (14.0-18.0); O2 Tension (PaO2), arterial 264.4 mmHg (> 70.0); Potassium - ABG Lab 4.22 mmol/L (3.70-5.30); pH, Arterial 7.36 (7.35-7.45)
[2022-02-13 14:08] LABS: Actual Bicarbonate (HCO3v) 23 mEq/L (22-28); Analyzer IN Cardio OR; Base Excess -3.5 mEq/L (-2.0 to +3.0); Calcium, Ionized (venous) 1.03 mmol/L (1.16-1.32); Chloride (VBG) 106 mmol/L (98-106); Hemoglobin (Hb) 8.5 g/dL (12.6-17.4); Potassium (VBG) 4.21 mmol/L (3.70-5.30); Sodium 133.8 mmol/L (133-146); pH (venous) 7.32 (7.32-7.43)
[2022-02-13 14:08] LABS: Actual Bicarbonate (HCO3v) 26 mEq/L (22-28); Analyzer IN Cardio OR; Base Excess -0.4 mEq/L (-2.0 to +3.0); Chloride (VBG) 106 mmol/L (98-106); Hemoglobin (Hb) 8.6 g/dL (12.6-17.4); Potassium (VBG) 4.17 mmol/L (3.70-5.30); Sodium 134.7 mmol/L (133-146); pH (venous) 7.31 (7.32-7.43)
[2022-02-13 14:08] LABS: Actual Bicarbonate (HCO3a) 21.8 mEq/L (22-28); Analyzer IN Cardio OR; Base Excess (BEa) -4.4 mEq/L (-2.0 to +3.0); CO2 Tension 44.9 mmHg (35.0-45.0); Calcium, Ionized (arterial) 1.05 mmol/L (1.12-1.30); Carboxyhemoglobin (COHb) 0.1 gm% (0.0-3.0); Hemoglobin (Hb) 10.6 g/dL (14.0-18.0)
[2022-02-13 14:09] LABS: Actual Bicarbonate (HCO3a) 25.3 mEq/L (22-28); Analyzer IN Cardio OR; Base Excess (BEa) -0.7 mEq/L (-2.0 to +3.0); CO2 Tension 48.5 mmHg (35.0-45.0); Calcium, Ionized (arterial) 1.03 mmol/L (1.12-1.30); Carboxyhemoglobin (COHb) 0.3 gm% (0.0-3.0); Hemoglobin (Hb) 9.6 g/dL (14.0-18.0); Potassium - ABG Lab 4.24 mmol/L (3.70-5.30); pH, Arterial 7.34 (7.35-7.45)
[2022-02-13 14:09] LABS: Actual Bicarbonate (HCO3a) 23.1 mEq/L (22-28); Analyzer IN Cardio OR; Base Excess (BEa) -0.9 mEq/L (-2.0 to +3.0); CO2 Tension 36.1 mmHg (35.0-45.0); Calcium, Ionized (arterial) 1.14 mmol/L (1.12-1.30); Carboxyhemoglobin (COHb) 0.8 gm% (0.0-3.0); Hemoglobin (Hb) 13.2 g/dL (14.0-18.0); O2 Tension (PaO2), arterial 259.5 mmHg (> 70.0); Potassium - ABG Lab 3.93 mmol/L (3.70-5.30); pH, Arterial 7.42 (7.35-7.45)
[2022-02-13 14:09] LABS: Actual Bicarbonate (HCO3a) 23.4 mEq/L (22-28); Analyzer IN Cardio OR; Base Excess (BEa) -2.9 mEq/L (-2.0 to +3.0); CO2 Tension 46.5 mmHg (35.0-45.0); Calcium, Ionized (arterial) 1.07 mmol/L (1.12-1.30); Carboxyhemoglobin (COHb) 0.2 gm% (0.0-3.0); Hemoglobin (Hb) 12.2 g/dL (14.0-18.0); O2 Tension (PaO2), arterial 489.7 mmHg (> 70.0); Potassium - ABG Lab 4.02 mmol/L (3.70-5.30); pH, Arterial 7.32 (7.35-7.45)
[2022-02-13 14:10] LABS: Puncture Site Arterial Line
[2022-02-13 14:10] LABS: Puncture Site Arterial Line
[2022-02-13 14:11] LABS: Puncture Site Arterial Line
[2022-02-13 14:11] LABS: Puncture Site Arterial Line
[2022-02-13 14:12] LABS: O2 Tension (PaO2), arterial 526.9 mmHg (> 70.0); Puncture Site Arterial Line
== END 2022-02-10 15:54 | DRG 233 ==
LOC: SDC 05:58 → 2SW 10:12 → CCU 02-02 09:29 → 2NO 02-03 15:19 → IMCU/EMU 02-05 14:20 → 2NO 02-06 19:37
PROVIDERS: ADMIT Internal Medicine Cardiovascular Disease; ATTEND Internal Medicine Cardiovascular Disease
PROC: 4A023N7 Measurement of Cardiac Sampling and Pressure, Left Heart, Percutaneous Approach (ICD-10-PCS; 2022-02-01)
PROC: B2111ZZ Fluoroscopy of Multiple Coronary Arteries using Low Osmolar Contrast (ICD-10-PCS; 2022-02-01)
PROC: B2151ZZ Fluoroscopy of Left Heart using Low Osmolar Contrast (ICD-10-PCS; 2022-02-01)
PROC: 02100Z9 Bypass Coronary Artery, One Artery from Left Internal Mammary, Open Approach (ICD-10-PCS; principal; 2022-02-02)
PROC: 021109W Bypass Coronary Artery, Two Arteries from Aorta with Autologous Venous Tissue, Open Approach (ICD-10-PCS; 2022-02-02)
PROC: 06BQ4ZZ Excision of Left Saphenous Vein, Percutaneous Endoscopic Approach (ICD-10-PCS; 2022-02-02)
PROC: 5A1221Z Performance of Cardiac Output, Continuous (ICD-10-PCS; 2022-02-02)
PROC: 02L70ZK Occlusion of Left Atrial Appendage, Open Approach (ICD-10-PCS; 2022-02-02)
DX: I25.10 Atherosclerotic heart disease of native coronary artery without angina pectoris (principal); U07.1 COVID-19; I48.92 Unspecified atrial flutter; I10 Essential (primary) hypertension; F41.9 Anxiety disorder, unspecified; F32.A Depression, unspecified; J45.909 Unspecified asthma, uncomplicated; N40.0 Benign prostatic hyperplasia without lower urinary tract symptoms; E78.5 Hyperlipidemia, unspecified; G20 Parkinson's disease; Z90.09 Acquired absence of other part of head and neck; Z79.899 Other long term (current) drug therapy; Z79.82 Long term (current) use of aspirin; Z98.890 Other specified postprocedural states; Z79.51 Long term (current) use of inhaled steroids; R13.10 Dysphagia, unspecified; I48.91 Unspecified atrial fibrillation; D64.9 Anemia, unspecified
CPT/HCPCS: 36415; 36416; 36430; 71045; 80048; 80061; 82805; 82947; 85025; 85610; 85730; 86850; 86900; 86901; 87811; 93005; 93010; 93458; 93798; 94002; 94150; 94640; 99152; 99153; C1751; C1769; C1894; J0282; J0690; J1644; J1650; J1815; J1885; J1940; J2001; J2150; J2250; J2405; J2440; J2704; J2720; J3010; J3370; J3475; J3480; J3490; J3535; J7030; J7070; J7120; J7620; P9045; Q9967; S0017; S0028; U0002

== ENCOUNTER 2022-03-21 16:30 | Emergency (ER) | payer OTHER | END 2022-03-21 18:17 | disposition left against medical advice (07) | LOC: ERS 16:30 | DX: M79.604 Pain in right leg (principal); M79.605 Pain in left leg; Z53.29 Procedure and treatment not carried out because of patient's decision for other reasons; I10 Essential (primary) hypertension; E78.5 Hyperlipidemia, unspecified; Z79.899 Other long term (current) drug therapy | CPT/HCPCS: 99283 ==

== ENCOUNTER 2022-04-07 05:18 | Inpatient (IN) | payer OTHER, MEDICAID ==
[2022-04-07] MEDS ORDERED: Aspirin Chewable 81 MG TAB ONE (05:47)
[2022-04-07] MEDS ORDERED: Magnesium 2 GM/50 ML BAG (IN WATER) ONE (05:47)
[2022-04-07] MEDS ORDERED: methylPREDNISolone Sod Succ/PF 125 MG/2 ML VIAL ONE (05:47)
[2022-04-07 06:11] LABS: #Eosinphils 0.2 thou/uL (0.0-0.7); #Lymphocytes 1.4 thou/uL (1.20-3.40); #Monocytes 0.4 thou/uL (0.11-0.59); #Neutrophils 3.2 thou/uL (1.40-6.50); %Basophils 0.3 % (0.0-1.0); %Eosinophils 4.4 % (0.0-10.0); %Lymphocytes 27.3 % (21.0-51.0); %Monocytes 7.1 % (0.0-10.0); %Neutrophils 60.9 % (42.0-75.0); Hemoglobin 10.4 g/dL (14.0-18.0); Mean Corpuscular HGB CONC 30.4 g/dL (32.0-36.0); Mean Corpuscular Hemoglobin 24.6 pg (27.0-31.0); Mean Corpuscular Volume 80.7 fL (78.0-98.0); Mean Platelet Volume 9.3 fL (7.4-10.4); Platelet Count 341 thou/uL (130-400); RBC Distribution Width 14.7 % (11.5-14.5); Red Blood Cell (RBC) Count 4.22 mill/uL (4.70-6.10); White Blood Cell (WBC) Count 5.2 thou/uL (4.8-10.8)
[2022-04-07] MEDS ORDERED: Acetaminophen 500 MG TAB ONE ×3 (06:13→12:42)
[2022-04-07] MEDS ORDERED: Azithromycin 500 MG VIAL ONE (06:13)
[2022-04-07 06:18] LABS: ALT (SGPT) Less than 7 U/L (8-55); AST (SGOT) 13 U/L (5-34); Alkaline Phosphatase 82 U/L (40-110); Anion Gap 10 mmol/L (10-20); BUN (Urea Nitrogen) 25 mg/dL (8.4-25.7); Bilirubin, Total 0.5 mg/dL (0.2-1.2); Calc. Creatinine Clearance 0 mL/min (70-130); Calcium 9.2 mg/dL (7.8-10.44); Carbon Dioxide 27 mmol/L (23-31); Chloride 104 mmol/L (98-107); Estimated GFR 75; Globulin 3.5 g/dL (2.4-3.5); Glucose 111 mg/dL (83-110); Potassium 4.1 mmol/L (3.5-5.1); Protein, Total 7.5 g/dL (5.8-8.1); Sodium 137 mmol/L (136-145)
[2022-04-07 06:42] LABS: CKMB 1.8 ng/mL (0-6.6)
[2022-04-07 09:32] LABS: Troponin I Less than 0.010 ng/mL (< 0.028)
[2022-04-07] MEDS ORDERED: Ondansetron PF 4 MG/2 ML Vial IVP PRN (10:38)
[2022-04-07] MEDS ORDERED: Ondansetron ODT 4 MG TAB PO PRN (10:38)
[2022-04-07 12:06] LABS: SARS-CoV-2 NAA Rapid Test DETECTED (NotDetected)
[2022-04-07] MEDS ORDERED: Acetaminophen 500 MG TAB PO PRN (12:32)
[2022-04-07] MEDS ORDERED: Non-Formulary Item 1 EACH (Ipratropium/Albuterol Sulfate [Combivent Respimat] 120 PUFF In INH PRN (12:32)
[2022-04-07] MEDS ORDERED: Non-Formulary Item 1 EACH (Cyclobenzaprine Hcl [Cyclobenzaprine Hcl] 5 MG Tablet) PO PRN (12:32)
[2022-04-07 12:40] LABS: Troponin I 0.012 ng/mL (< 0.028)
[2022-04-07] MEDS ORDERED: Cyclobenzaprine 10 MG TAB PO PRN (12:41)
[2022-04-07] MEDS: Acetaminophen 500 MG TAB PO SCH (12:47)
[2022-04-07] MEDS: Carbidopa/Levodopa 25-100 mg Tablet PO SCH ×2 (13:42→20:04)
[2022-04-07] MEDS ORDERED: Lidocaine 2% Viscous Solution 10 ML, Aluminum & Magnesium Hydroxide 30 ML SSW SCH (16:15)
[2022-04-07] MEDS ORDERED: Lidocaine Viscous Sol 2% 15 ml UD Cup ONE (16:30)
[2022-04-07] MEDS ORDERED: Mag-Al 1200 mg/1200 mg/30 ML UDCUP ONE (16:30)
[2022-04-07] MEDS: Gabapentin 300 MG CAP PO PRN (20:04)
[2022-04-07] MEDS: Acetaminophen 500 MG TAB PO PRN (20:06)
[2022-04-07] MEDS: clonazePAM 0.5 MG TAB PO SCH (20:07)
[2022-04-07] MEDS: busPIRone HCl 10 MG TAB PO SCH (20:07)
[2022-04-07] MEDS ORDERED: Tamsulosin HCl 0.4 MG CAP PO SCH (21:00)
[2022-04-07] MEDS ORDERED: Non-Formulary Item 1 EACH (Clonazepam [Clonazepam] 2 MG Tablet) PO SCH (21:00)
[2022-04-07] MEDS ORDERED: traZODone HCl 50 MG TAB PO SCH (21:00)
[2022-04-07] MEDS ORDERED: DULoxetine 60 MG CAP PO SCH (21:00)
[2022-04-07] MEDS ORDERED: Atorvastatin Calcium 40 MG TAB PO SCH (21:00)
[2022-04-07 22:54] VITALS: BMI 25.3
[2022-04-07] MEDS: traMADol HCl 50 MG TAB PO PRN (23:08)
[2022-04-08 04:23] LABS: Anion Gap 8 mmol/L (10-20); BUN (Urea Nitrogen) 29 mg/dL (8.4-25.7); Calc. Creatinine Clearance 61 mL/min (70-130); Calcium 8.7 mg/dL (7.8-10.44); Carbon Dioxide 26 mmol/L (23-31); Chloride 106 mmol/L (98-107); Estimated GFR 82; Glucose 131 mg/dL (83-110); Potassium 4.4 mmol/L (3.5-5.1); Sodium 136 mmol/L (136-145)
[2022-04-08 04:29] LABS: #Lymphocytes 1.1 thou/uL (1.20-3.40); #Monocytes 0.8 thou/uL (0.11-0.59); #Neutrophils 8.4 thou/uL (1.40-6.50); %Basophils 0.1 % (0.0-1.0); %Eosinophils 0.1 % (0.0-10.0); %Monocytes 7.7 % (0.0-10.0); %Neutrophils 81.2 % (42.0-75.0); Hemoglobin 9.6 g/dL (14.0-18.0); Mean Corpuscular HGB CONC 29.5 g/dL (32.0-36.0); Mean Corpuscular Hemoglobin 24.2 pg (27.0-31.0); Mean Corpuscular Volume 81.8 fL (78.0-98.0); Mean Platelet Volume 9.2 fL (7.4-10.4); Platelet Count 333 thou/uL (130-400); RBC Distribution Width 14.8 % (11.5-14.5); Red Blood Cell (RBC) Count 3.97 mill/uL (4.70-6.10); White Blood Cell (WBC) Count 10.3 thou/uL (4.8-10.8)
[2022-04-08] MEDS: Gabapentin 300 MG CAP PO PRN ×2 (06:44→14:36)
[2022-04-08] MEDS: Acetaminophen 500 MG TAB PO PRN (06:45)
[2022-04-08] MEDS ORDERED: Aspirin Chewable 81 MG TAB PO SCH (09:00)
[2022-04-08] MEDS ORDERED: Amlodipine 5 MG TAB PO SCH (09:00)
[2022-04-08] MEDS ORDERED: Finasteride 5 MG TAB PO SCH (09:00)
[2022-04-08] MEDS ORDERED: Enoxaparin Sodium 30 MG/0.3 ML SYRINGE SC SCH (09:00)
[2022-04-08] MEDS ORDERED: Lisinopril 10 MG TAB PO SCH (09:00)
[2022-04-08 09:24] VITALS: BP 159/73; TEMP 98.4
[2022-04-08] MEDS: traMADol HCl 50 MG TAB PO PRN (09:25)
[2022-04-08] MEDS: Carbidopa/Levodopa 25-100 mg Tablet PO SCH ×2 (09:26→14:36)
[2022-04-08] MEDS: busPIRone HCl 10 MG TAB PO SCH (09:26)
[2022-04-08] MEDS: clonazePAM 0.5 MG TAB PO SCH (09:26)
[2022-04-08] MEDS ORDERED: Polyethylene Glycol 3350 17 GM Packet PO SCH (12:45)
[2022-04-08] MEDS: Acetaminophen 500 MG TAB PO SCH (14:35)
[2022-04-10] MEDS ORDERED: FLU VACC QS2022-23(65YR UP)/PF 240 MCG/0.7 ML SYRINGE IM ONE (09:00)
== END 2022-04-08 15:45 | disposition home or self-care (01) | DRG 202 ==
LOC: ERS 05:18 → ERHOLD 07:32 → 2NO 17:40
PROVIDERS: ADMIT Family Medicine; ATTEND Family Medicine
DX: J45.901 Unspecified asthma with (acute) exacerbation (principal); U07.1 COVID-19; R07.89 Other chest pain; N40.0 Benign prostatic hyperplasia without lower urinary tract symptoms; G20 Parkinson's disease; I10 Essential (primary) hypertension; F41.9 Anxiety disorder, unspecified; F32.A Depression, unspecified; G89.29 Other chronic pain; I25.10 Atherosclerotic heart disease of native coronary artery without angina pectoris; Z95.1 Presence of aortocoronary bypass graft; Z79.899 Other long term (current) drug therapy; Z82.49 Family history of ischemic heart disease and other diseases of the circulatory system; Z28.311 Partially vaccinated for COVID-19
CPT/HCPCS: 36415; 71045; 80048; 80053; 82553; 84484; 85025; 93005; 94640; 96365; 96367; 96375; J0456; J1650; J2930; J3475; J7620

== ENCOUNTER 2022-04-11 13:51 | Emergency (ER) | payer OTHER, MEDICARE ==
[2022-04-11 14:33] LABS: #Lymphocytes 0.7 thou/uL (1.20-3.40); #Monocytes 0.2 thou/uL (0.11-0.59); #Neutrophils 7.9 thou/uL (1.40-6.50); %Eosinophils 0.3 % (0.0-10.0); %Lymphocytes 7.6 % (21.0-51.0); %Monocytes 2.2 % (0.0-10.0); %Neutrophils 89.9 % (42.0-75.0); Hemoglobin 10.1 g/dL (14.0-18.0); Mean Corpuscular HGB CONC 30.3 g/dL (32.0-36.0); Mean Corpuscular Hemoglobin 24.4 pg (27.0-31.0); Mean Corpuscular Volume 80.5 fL (78.0-98.0); Mean Platelet Volume 9.3 fL (7.4-10.4); Platelet Count 374 thou/uL (130-400); RBC Distribution Width 14.7 % (11.5-14.5); Red Blood Cell (RBC) Count 4.12 mill/uL (4.70-6.10); White Blood Cell (WBC) Count 8.8 thou/uL (4.8-10.8)
[2022-04-11 14:45] LABS: ALT (SGPT) Less than 7 U/L (8-55); AST (SGOT) 10 U/L (5-34); Albumin 4.2 g/dL (3.4-4.8); Alkaline Phosphatase 82 U/L (40-110); Anion Gap 13 mmol/L (10-20); BUN (Urea Nitrogen) 36 mg/dL (8.4-25.7); Bilirubin, Total 0.4 mg/dL (0.2-1.2); CK (CPK) 44 U/L (30-200); Calc. Creatinine Clearance 0 mL/min (70-130); Carbon Dioxide 25 mmol/L (23-31); Chloride 103 mmol/L (98-107); Estimated GFR 62; Globulin 3.3 g/dL (2.4-3.5); Glucose 167 mg/dL (83-110); Lipase 58 U/L (8-78); Protein, Total 7.5 g/dL (5.8-8.1); Sodium 136 mmol/L (136-145)
== END 2022-04-11 16:22 | disposition home or self-care (01) ==
LOC: ERS 13:51
DX: R07.9 Chest pain, unspecified (principal); I10 Essential (primary) hypertension; E78.5 Hyperlipidemia, unspecified; G20 Parkinson's disease; Z79.899 Other long term (current) drug therapy
CPT/HCPCS: 36415; 71045; 80053; 82550; 83690; 83880; 84484; 85025; 93005

== ENCOUNTER 2022-04-16 01:34 | Emergency (ER) | payer OTHER, MEDICAID ==
[2022-04-16] MEDS ORDERED: Morphine 2 MG/ML VIAL ONE (02:01)
[2022-04-16] MEDS ORDERED: Ketorolac Tromethamine 30 MG/ML VIAL ONE (02:01)
[2022-04-16 03:25] LABS: #Eosinphils 0.3 thou/uL (0.0-0.7); #Lymphocytes 2.4 thou/uL (1.20-3.40); #Monocytes 0.6 thou/uL (0.11-0.59); #Neutrophils 5.5 thou/uL (1.40-6.50); %Basophils 0.2 % (0.0-1.0); %Eosinophils 3.7 % (0.0-10.0); %Lymphocytes 27.1 % (21.0-51.0); %Monocytes 6.9 % (0.0-10.0); %Neutrophils 62.1 % (42.0-75.0); Hemoglobin 10.4 g/dL (14.0-18.0); Mean Corpuscular HGB CONC 29.7 g/dL (32.0-36.0); Mean Corpuscular Hemoglobin 23.7 pg (27.0-31.0); Mean Corpuscular Volume 79.7 fL (78.0-98.0); Mean Platelet Volume 9.3 fL (7.4-10.4); Platelet Count 399 thou/uL (130-400); Red Blood Cell (RBC) Count 4.41 mill/uL (4.70-6.10); White Blood Cell (WBC) Count 8.8 thou/uL (4.8-10.8)
[2022-04-16 03:30] LABS: ALT (SGPT) 11 U/L (8-55); AST (SGOT) 18 U/L (5-34); Albumin 3.6 g/dL (3.4-4.8); Alkaline Phosphatase 67 U/L (40-110); Anion Gap 12 mmol/L (10-20); BUN (Urea Nitrogen) 26 mg/dL (8.4-25.7); Bilirubin, Total 0.4 mg/dL (0.2-1.2); Calc. Creatinine Clearance 0 mL/min (70-130); Calcium 8.5 mg/dL (7.8-10.44); Carbon Dioxide 28 mmol/L (23-31); Chloride 101 mmol/L (98-107); Estimated GFR 73; Globulin 2.9 g/dL (2.4-3.5); Glucose 117 mg/dL (83-110); Potassium 4.5 mmol/L (3.5-5.1); Protein, Total 6.5 g/dL (5.8-8.1); Sodium 136 mmol/L (136-145)
[2022-04-16] MEDS ORDERED: traMADol HCl 50 MG TAB ONE (04:37)
[2022-04-16] MEDS ORDERED: Acetaminophen 500 MG TAB ONE (08:00)
== END 2022-04-16 08:50 | disposition home or self-care (01) ==
LOC: ERS 01:34
DX: R07.89 Other chest pain (principal); I10 Essential (primary) hypertension; E78.5 Hyperlipidemia, unspecified; Z79.899 Other long term (current) drug therapy; Z79.82 Long term (current) use of aspirin
CPT/HCPCS: 36415; 71045; 80053; 84484; 85025; J1885; J2270

== ENCOUNTER 2022-04-16 18:15 | Emergency (ER) | payer OTHER, MEDICAID ==
[2022-04-16] MEDS ORDERED: Famotidine/PF 20 mg/2ml Vial ONE (18:56)
[2022-04-16] MEDS ORDERED: Lidocaine Viscous Sol 2% 15 ml UD Cup ONE (18:57)
[2022-04-16] MEDS ORDERED: Mag-Al 1200 mg/1200 mg/30 ML UDCUP ONE (19:03)
[2022-04-16 19:10] LABS: #Eosinphils 0.3 thou/uL (0.0-0.7); #Lymphocytes 1.8 thou/uL (1.20-3.40); #Monocytes 0.6 thou/uL (0.11-0.59); #Neutrophils 5.5 thou/uL (1.40-6.50); %Lymphocytes 22.1 % (21.0-51.0); %Monocytes 7.4 % (0.0-10.0); %Neutrophils 66.6 % (42.0-75.0); Hemoglobin 9.6 g/dL (14.0-18.0); Mean Corpuscular HGB CONC 29.7 g/dL (32.0-36.0); Mean Corpuscular Hemoglobin 23.9 pg (27.0-31.0); Mean Corpuscular Volume 80.4 fL (78.0-98.0); Mean Platelet Volume 9.3 fL (7.4-10.4); Platelet Count 374 thou/uL (130-400); RBC Distribution Width 15.1 % (11.5-14.5); Red Blood Cell (RBC) Count 4.03 mill/uL (4.70-6.10); White Blood Cell (WBC) Count 8.3 thou/uL (4.8-10.8)
[2022-04-16 19:29] LABS: ALT (SGPT) Less than 7 U/L (8-55); AST (SGOT) 19 U/L (5-34); Albumin 3.3 g/dL (3.4-4.8); Alkaline Phosphatase 68 U/L (40-110); Anion Gap 11 mmol/L (10-20); BUN (Urea Nitrogen) 36 mg/dL (8.4-25.7); Bilirubin, Total 0.3 mg/dL (0.2-1.2); Calc. Creatinine Clearance 0 mL/min (70-130); Calcium 8.6 mg/dL (7.8-10.44); Carbon Dioxide 28 mmol/L (23-31); Chloride 101 mmol/L (98-107); Estimated GFR 52; Globulin 2.8 g/dL (2.4-3.5); Glucose 196 mg/dL (83-110); Potassium 4.4 mmol/L (3.5-5.1); Protein, Total 6.1 g/dL (5.8-8.1); Sodium 136 mmol/L (136-145)
== END 2022-04-16 19:55 | disposition home or self-care (01) ==
LOC: ERS 18:15
DX: R07.89 Other chest pain (principal); I10 Essential (primary) hypertension; E78.5 Hyperlipidemia, unspecified; Z79.82 Long term (current) use of aspirin; Z79.899 Other long term (current) drug therapy
CPT/HCPCS: 51702; 71045; 80053 ×2; 84484 ×2; 85025 ×2; 93005; 94760; 96372; 99285; J2270; 36415; 96374; J1885; S0028

== ENCOUNTER 2022-04-18 12:42 | Emergency (ER) | payer OTHER, MEDICAID ==
[2022-04-18 13:23] LABS: #Eosinphils 0.2 thou/uL (0.0-0.7); #Lymphocytes 1.3 thou/uL (1.20-3.40); #Monocytes 0.4 thou/uL (0.11-0.59); #Neutrophils 6.8 thou/uL (1.40-6.50); %Basophils 0.3 % (0.0-1.0); %Eosinophils 2.5 % (0.0-10.0); %Lymphocytes 15.3 % (21.0-51.0); %Monocytes 4.5 % (0.0-10.0); %Neutrophils 77.5 % (42.0-75.0); Hemoglobin 10.4 g/dL (14.0-18.0); Mean Corpuscular HGB CONC 29.6 g/dL (32.0-36.0); Mean Corpuscular Hemoglobin 23.5 pg (27.0-31.0); Mean Corpuscular Volume 79.3 fl (78.0-98.0); Mean Platelet Volume 9.2 fL (7.4-10.4); Platelet Count 407 thou/uL (130-400); RBC Distribution Width 15.2 % (11.5-14.5); Red Blood Cell (RBC) Count 4.41 mill/uL (4.70-6.10); White Blood Cell (WBC) Count 8.7 thou/uL (4.8-10.8)
[2022-04-18 13:46] LABS: ALT (SGPT) Less than 7 U/L (8-55); AST (SGOT) 8 U/L (5-34); Albumin 3.8 g/dL (3.4-4.8); Alkaline Phosphatase 70 U/L (40-110); Anion Gap 7 mmol/L (10-20); BUN (Urea Nitrogen) 28 mg/dL (8.4-25.7); Bilirubin, Total 0.5 mg/dL (0.2-1.2); Calc. Creatinine Clearance 0 mL/min (70-130); Carbon Dioxide 31 mmol/L (23-31); Chloride 104 mmol/L (98-107); Estimated GFR 63; Glucose 210 mg/dL (83-110); Potassium 4.4 mmol/L (3.5-5.1); Protein, Total 6.8 g/dL (5.8-8.1); Sodium 138 mmol/L (136-145)
== END 2022-04-18 15:45 | disposition home or self-care (01) ==
LOC: ERS 12:42
DX: R07.9 Chest pain, unspecified (principal); G89.29 Other chronic pain; I10 Essential (primary) hypertension; E78.5 Hyperlipidemia, unspecified; Z79.899 Other long term (current) drug therapy; Z79.82 Long term (current) use of aspirin
CPT/HCPCS: 36415; 51701; 71045; 71275; 80053; 84484; 85025; 93005; Q9967

== ENCOUNTER 2022-04-20 15:22 | Emergency (ER) | payer OTHER, MEDICAID ==
[2022-04-20 16:12] LABS: #Basophils 0.1 thou/uL (0.0-0.2); #Eosinphils 0.3 thou/uL (0.0-0.7); #Lymphocytes 1.3 thou/uL (1.20-3.40); #Monocytes 0.5 thou/uL (0.11-0.59); #Neutrophils 5.4 thou/uL (1.40-6.50); %Basophils 0.7 % (0.0-1.0); %Eosinophils 3.9 % (0.0-10.0); %Lymphocytes 17.4 % (21.0-51.0); %Monocytes 6.9 % (0.0-10.0); %Neutrophils 71.1 % (42.0-75.0); Hemoglobin 9.2 g/dL (14.0-18.0); Mean Corpuscular Hemoglobin 23.9 pg (27.0-31.0); Mean Corpuscular Volume 79.6 fl (78.0-98.0); Mean Platelet Volume 9.3 fL (7.4-10.4); Platelet Count 379 thou/uL (130-400); RBC Distribution Width 15.2 % (11.5-14.5); Red Blood Cell (RBC) Count 3.87 mill/uL (4.70-6.10); White Blood Cell (WBC) Count 7.6 thou/uL (4.8-10.8)
[2022-04-20 16:30] LABS: ALT (SGPT) Less than 7 U/L (8-55); AST (SGOT) 14 U/L (5-34); Albumin 3.6 g/dL (3.4-4.8); Alkaline Phosphatase 64 U/L (40-110); Anion Gap 9 mmol/L (10-20); BUN (Urea Nitrogen) 23 mg/dL (8.4-25.7); Bilirubin, Total 0.3 mg/dL (0.2-1.2); Calc. Creatinine Clearance 0 mL/min (70-130); Calcium 8.5 mg/dL (7.8-10.44); Carbon Dioxide 28 mmol/L (23-31); Chloride 105 mmol/L (98-107); Estimated GFR 73; Globulin 2.8 g/dL (2.4-3.5); Glucose 144 mg/dL (83-110); Potassium 4.1 mmol/L (3.5-5.1); Protein, Total 6.4 g/dL (5.8-8.1); Sodium 138 mmol/L (136-145)
[2022-04-20] MEDS ORDERED: Ketorolac Tromethamine 30 MG/ML VIAL ONE (17:11)
== END 2022-04-20 19:29 | disposition home or self-care (01) ==
LOC: ERS 15:22
DX: R07.89 Other chest pain (principal); I10 Essential (primary) hypertension; E78.5 Hyperlipidemia, unspecified; J45.909 Unspecified asthma, uncomplicated; Z79.82 Long term (current) use of aspirin; Z79.01 Long term (current) use of anticoagulants; Z79.899 Other long term (current) drug therapy
CPT/HCPCS: 36415; 71045; 80053; 84484; 85025; 93005; 96374; J1885

== ENCOUNTER 2022-04-29 11:30 | Emergency (ER) | payer MEDICAID, OTHER ==
[2022-04-29 12:10] LABS: #Basophils 0.1 thou/uL (0.0-0.2); #Eosinphils 0.2 thou/uL (0.0-0.7); #Lymphocytes 1.1 thou/uL (1.20-3.40); #Monocytes 0.4 thou/uL (0.11-0.59); %Basophils 1.2 % (0.0-1.0); %Eosinophils 3.3 % (0.0-10.0); %Lymphocytes 23.4 % (21.0-51.0); %Monocytes 8.4 % (0.0-10.0); %Neutrophils 63.6 % (42.0-75.0); Mean Corpuscular HGB CONC 30.4 g/dL (32.0-36.0); Mean Corpuscular Hemoglobin 23.7 pg (27.0-31.0); Mean Corpuscular Volume 78.2 fl (78.0-98.0); Mean Platelet Volume 9.7 fL (7.4-10.4); Platelet Count 334 thou/uL (130-400); RBC Distribution Width 15.2 % (11.5-14.5); Red Blood Cell (RBC) Count 4.22 mill/uL (4.70-6.10); White Blood Cell (WBC) Count 4.7 thou/uL (4.8-10.8)
[2022-04-29 12:34] LABS: ALT (SGPT) Less than 7 U/L (8-55); AST (SGOT) 8 U/L (5-34); Albumin 3.6 g/dL (3.4-4.8); Alkaline Phosphatase 67 U/L (40-110); Anion Gap 11 mmol/L (10-20); BUN (Urea Nitrogen) 21 mg/dL (8.4-25.7); Bilirubin, Total 0.4 mg/dL (0.2-1.2); CK (CPK) 52 U/L (30-200); Calc. Creatinine Clearance 0 mL/min (70-130); Calcium 8.9 mg/dL (7.8-10.44); Carbon Dioxide 28 mmol/L (23-31); Chloride 104 mmol/L (98-107); Estimated GFR 70; Globulin 2.7 g/dL (2.4-3.5); Glucose 152 mg/dL (83-110); Lipase 31 U/L (8-78); Potassium 4.6 mmol/L (3.5-5.1); Protein, Total 6.3 g/dL (5.8-8.1); Sodium 138 mmol/L (136-145)
== END 2022-04-29 15:33 | disposition home or self-care (01) ==
LOC: ERS 11:30
DX: R07.9 Chest pain, unspecified (principal); I10 Essential (primary) hypertension; E78.5 Hyperlipidemia, unspecified; J45.909 Unspecified asthma, uncomplicated; Z79.82 Long term (current) use of aspirin; Z79.899 Other long term (current) drug therapy
CPT/HCPCS: 36415; 71045; 80053; 82550; 83690; 84484; 85025

== ENCOUNTER 2022-05-01 17:17 | Inpatient (IN) | payer OTHER, MEDICAID ==
[2022-05-01 19:12] LABS: CKMB 5.2 ng/mL (0-6.6)
[2022-05-01] MEDS ORDERED: Nitroglycerin 2% Ointment 1 INCH/1 GM Packet ONE (19:26)
[2022-05-01] MEDS ORDERED: Aspirin Chewable 81 MG TAB ONE (19:26)
[2022-05-01 19:28] LABS: Hemoglobin 9.7 g/dL (14.0-18.0); Mean Corpuscular HGB CONC 29.6 g/dL (32.0-36.0); Mean Corpuscular Hemoglobin 23.1 pg (27.0-31.0); Mean Corpuscular Volume 78.1 fl (78.0-98.0); Mean Platelet Volume 10.5 fL (7.4-10.4); Platelet Count 321 thou/uL (130-400); RBC Distribution Width 15.1 % (11.5-14.5); Red Blood Cell (RBC) Count 4.22 mill/uL (4.70-6.10); White Blood Cell (WBC) Count 23.7 thou/uL (4.8-10.8)
[2022-05-01 19:42] LABS: Band 7 % (5-11); Eosinophils 2 % (0-10); Hypochromia SLIGHT = 6-15 cells (100X) (0-5/hpf); Lymphocytes 13 % (21-51); MDiff Complete? YES; Monocytes 4 % (0-10); Neutrophil 73 % (42-75); Ovalocytes SLIGHT = 2-5 cells (100X) (0-1/hpf); Platelet Morphology Comment Appears Adequate; Polychromasia SLIGHT = 2-3 cells (100X) (0-2/hpf)
[2022-05-01 19:53] LABS: ALT (SGPT) Less than 7 U/L (8-55); AST (SGOT) 32 U/L (5-34); Albumin 3.5 g/dL (3.4-4.8); Alkaline Phosphatase 85 U/L (40-110); Anion Gap 13 mmol/L (10-20); BUN (Urea Nitrogen) 39 mg/dL (8.4-25.7); Bilirubin, Total 0.6 mg/dL (0.2-1.2); Calc. Creatinine Clearance 0 mL/min (70-130); Calcium 9.2 mg/dL (7.8-10.44); Carbon Dioxide 25 mmol/L (23-31); Chloride 102 mmol/L (98-107); Estimated GFR 44; Globulin 3.5 g/dL (2.4-3.5); Glucose 76 mg/dL (83-110); Potassium 4.9 mmol/L (3.5-5.1); Sodium 135 mmol/L (136-145)
[2022-05-01] MEDS ORDERED: traZODone HCl 50 MG TAB PO SCH (22:00)
[2022-05-01] MEDS: traMADol HCl 50 MG TAB PO PRN (22:20)
[2022-05-01] MEDS: Acetaminophen 500 MG TAB PO PRN (22:21)
[2022-05-01] MEDS: Lactated Ringer's 1,000 ML IV SCH (22:22)
[2022-05-01 22:47] LABS: Troponin I 0.052 ng/mL (< 0.028)
[2022-05-02] MEDS: Gabapentin 300 MG CAP PO PRN ×2 (00:36→15:52)
[2022-05-02] MEDS: Cyclobenzaprine 10 MG TAB PO PRN (00:37)
[2022-05-02 00:40] LABS: Bacteria/HPF None Seen HPF (None Seen); Bilirubin Negative (Negative); Blood, Urine Negative (Negative); Clarity Clear (Clear); Glucose, Urine (Dipstick) Normal (Negative); Ketone, Urine Negative (Negative); Leukocyte Negative Leu/uL (Negative); Nitrite Negative (Negative); Protein, Urine (Dipstick) Negative (Neg-Trace); RBC/HPF 0-3 HPF (0-3); Specific Gravity, Urine 1.015 (1.002-1.036); Squamous Epithelial None Seen HPF (0-3); Urobilinogen Normal mg/dL (Less than 2); WBC/HPF 0-3 HPF (0-3)
[2022-05-02 00:42] LABS: Urine Culture Reflex No No
[2022-05-02] MEDS ORDERED: hydrOXYzine 25 MG TAB PO SCH (01:15)
[2022-05-02] MEDS: Cefepime 2 GM in Sodium Chloride 0.9% 100 ML IVPB SCH ×2 (01:23→15:49)
[2022-05-02] MEDS ORDERED: VANCOMYCIN 1.25 GM/250 ML BAG 1.25 GM in Premix Bag 1 BAG IVPB SCH (03:00)
[2022-05-02 03:07] LABS: Troponin I 0.044 ng/mL (< 0.028)
[2022-05-02 04:52] LABS: #Eosinphils 0.3 thou/uL (0.0-0.7); #Lymphocytes 1.2 thou/uL (1.20-3.40); #Monocytes 0.9 thou/uL (0.11-0.59); #Neutrophils 13.9 thou/uL (1.40-6.50); %Eosinophils 1.5 % (0.0-10.0); %Lymphocytes 7.6 % (21.0-51.0); %Monocytes 5.4 % (0.0-10.0); %Neutrophils 85.4 % (42.0-75.0); Hemoglobin 8.1 g/dL (14.0-18.0); Mean Corpuscular HGB CONC 29.5 g/dL (32.0-36.0); Mean Corpuscular Hemoglobin 22.9 pg (27.0-31.0); Mean Corpuscular Volume 77.6 fl (78.0-98.0); Platelet Count 279 thou/uL (130-400); Red Blood Cell (RBC) Count 3.55 mill/uL (4.70-6.10); White Blood Cell (WBC) Count 16.3 thou/uL (4.8-10.8)
[2022-05-02] MEDS ORDERED: hydrOXYzine 10 MG TAB PO SCH (05:15)
[2022-05-02 05:42] LABS: ALT (SGPT) 9 U/L (8-55); AST (SGOT) 17 U/L (5-34); Alkaline Phosphatase 69 U/L (40-110); Anion Gap 9 mmol/L (10-20); BUN (Urea Nitrogen) 34 mg/dL (8.4-25.7); Bilirubin, Total 0.3 mg/dL (0.2-1.2); Calc. Creatinine Clearance 43 mL/min (70-130); Calcium 8.6 mg/dL (7.8-10.44); Carbon Dioxide 27 mmol/L (23-31); Chloride 104 mmol/L (98-107); Estimated GFR 55; Globulin 2.8 g/dL (2.4-3.5); Glucose 149 mg/dL (83-110); Potassium 4.3 mmol/L (3.5-5.1); Protein, Total 5.8 g/dL (5.8-8.1); Sodium 136 mmol/L (136-145)
[2022-05-02] MEDS: Lactated Ringer's 1,000 ML IV SCH ×3 (06:49→20:18)
[2022-05-02] MEDS: traMADol HCl 50 MG TAB PO PRN ×3 (07:24→23:37)
[2022-05-02] MEDS: Acetaminophen 500 MG TAB PO PRN ×2 (07:25→15:53)
[2022-05-02] MEDS ORDERED: Iopamidol-370 76% 500 ML 1 ML ONE (08:51)
[2022-05-02] MEDS: Amlodipine 5 MG TAB PO SCH (10:03)
[2022-05-02] MEDS: Enoxaparin Sodium 40 MG/0.4 ML SYRINGE SC SCH (10:03)
[2022-05-02] MEDS: Carbidopa/Levodopa 25-100 mg Tablet PO SCH ×3 (10:03→20:18)
[2022-05-02] MEDS: Finasteride 5 MG TAB PO SCH (10:03)
[2022-05-02] MEDS: clonazePAM 0.5 MG TAB PO SCH ×2 (10:03→20:19)
[2022-05-02] MEDS: busPIRone HCl 10 MG TAB PO SCH ×2 (10:03→20:19)
[2022-05-02] MEDS: Aspirin Chewable 81 MG TAB PO SCH (10:03)
[2022-05-02] MEDS: Tamsulosin HCl 0.4 MG CAP PO SCH (20:18)
[2022-05-02] MEDS: DULoxetine 60 MG CAP PO SCH (20:19)
[2022-05-02] MEDS: Atorvastatin Calcium 40 MG TAB PO SCH (20:19)
[2022-05-02] MEDS ORDERED: traZODone HCl 50 MG TAB PO SCH (21:00)
[2022-05-02] MEDS ORDERED: hydrOXYzine 10 MG TAB PO PRN (21:49)
[2022-05-03] MEDS: Cefepime 2 GM in Sodium Chloride 0.9% 100 ML IVPB SCH ×2 (02:39→14:15)
[2022-05-03 02:54] VITALS: BMI 24.7
[2022-05-03] MEDS ORDERED: Vancomycin HCl 750 MG in Sodium Chloride 0.9% 250 ML 250 ML IVPB SCH (03:00)
[2022-05-03 06:10] LABS: #Basophils 0.1 thou/uL (0.0-0.2); #Eosinphils 0.3 thou/uL (0.0-0.7); #Lymphocytes 1.2 thou/uL (1.20-3.40); #Monocytes 0.6 thou/uL (0.11-0.59); #Neutrophils 7.7 thou/uL (1.40-6.50); %Basophils 0.7 % (0.0-1.0); %Eosinophils 2.8 % (0.0-10.0); %Lymphocytes 11.9 % (21.0-51.0); %Monocytes 5.8 % (0.0-10.0); %Neutrophils 78.8 % (42.0-75.0); Hemoglobin 9.4 g/dL (14.0-18.0); Mean Corpuscular Volume 77.3 fl (78.0-98.0); Mean Platelet Volume 10.1 fL (7.4-10.4); Platelet Count 310 10x3/uL (130-400); Red Blood Cell (RBC) Count 3.91 mill/uL (4.70-6.10); White Blood Cell (WBC) Count 9.8 10x3/uL (4.8-10.8)
[2022-05-03 06:11] LABS: ALT (SGPT) Less than 7 U/L (8-55); AST (SGOT) 11 U/L (5-34); Albumin 3.2 g/dL (3.4-4.8); Alkaline Phosphatase 75 U/L (40-110); Anion Gap 8 mmol/L (10-20); BUN (Urea Nitrogen) 18 mg/dL (8.4-25.7); Bilirubin, Total 0.4 mg/dL (0.2-1.2); Calc. Creatinine Clearance 56 mL/min (70-130); Calcium 8.8 mg/dL (7.8-10.44); Carbon Dioxide 29 mmol/L (23-31); Chloride 105 mmol/L (98-107); Estimated GFR 77; Globulin 2.5 g/dL (2.4-3.5); Glucose 125 mg/dL (83-110); Potassium 4.4 mmol/L (3.5-5.1); Protein, Total 5.7 g/dL (5.8-8.1); Sodium 138 mmol/L (136-145)
[2022-05-03 07:16] LABS: Iron 15 ug/dL (65-175); Iron Binding Capacity, Total 338 mcg/dL (261-462)
[2022-05-03 07:41] LABS: Phosphorus 3.4 mg/dL (2.3-4.7)
[2022-05-03] MEDS: Aspirin Chewable 81 MG TAB PO SCH (08:25)
[2022-05-03] MEDS: Carbidopa/Levodopa 25-100 mg Tablet PO SCH ×3 (08:26→20:11)
[2022-05-03] MEDS: traMADol HCl 50 MG TAB PO PRN ×2 (08:26→17:27)
[2022-05-03] MEDS: busPIRone HCl 10 MG TAB PO SCH ×2 (08:27→20:11)
[2022-05-03] MEDS: clonazePAM 0.5 MG TAB PO SCH ×2 (08:27→20:11)
[2022-05-03] MEDS: Enoxaparin Sodium 40 MG/0.4 ML SYRINGE SC SCH (08:27)
[2022-05-03] MEDS: Lactated Ringer's 1,000 ML IV SCH ×2 (08:28→20:12)
[2022-05-03] MEDS: Gabapentin 300 MG CAP PO PRN (08:29)
[2022-05-03] MEDS: Amlodipine 5 MG TAB PO SCH (10:27)
[2022-05-03] MEDS: Finasteride 5 MG TAB PO SCH (10:27)
[2022-05-03] MEDS: Cyclobenzaprine 10 MG TAB PO PRN ×2 (10:29→23:24)
[2022-05-03 11:09] LABS: Amphetamine Not Detected (NotDetected); Barbiturates Screen Not Detected (NotDetected); Benzodiazepine Screen Not Detected (NotDetected); Cocaine Metabolite Screen Not Detected (NotDetected); Methadone Not Detected (NotDetected); Methamphetamine Not Detected (NotDetected); Opiate Screen Not Detected (NotDetected); Oxycodone Screen Not Detected (NotDetected); Phencyclidine (PCP) Not Detected (NotDetected); THC/Cannabinoid Screen Not Detected (NotDetected); Tricyclic Screen Detected (NotDetected)
[2022-05-03] MEDS: hydrOXYzine 25 MG TAB PO PRN (11:59)
[2022-05-03] MEDS: Acetaminophen 500 MG TAB PO PRN (20:10)
[2022-05-03] MEDS: Atorvastatin Calcium 40 MG TAB PO SCH (20:11)
[2022-05-03] MEDS: Melatonin 3 MG TAB PO PRN (20:11)
[2022-05-03] MEDS: DULoxetine 60 MG CAP PO SCH (20:11)
[2022-05-03] MEDS: Tamsulosin HCl 0.4 MG CAP PO SCH (20:11)
[2022-05-04] MEDS: traMADol HCl 50 MG TAB PO PRN ×2 (01:15→13:07)
[2022-05-04] MEDS: Cefepime 2 GM in Sodium Chloride 0.9% 100 ML IVPB SCH ×2 (01:16→13:08)
[2022-05-04] MEDS: hydrOXYzine 25 MG TAB PO PRN (01:16)
[2022-05-04 02:25] LABS: #Eosinphils 0.4 thou/uL (0.0-0.7); #Lymphocytes 1.2 thou/uL (1.20-3.40); #Monocytes 0.5 thou/uL (0.11-0.59); #Neutrophils 4.2 thou/uL (1.40-6.50); %Basophils 0.3 % (0.0-1.0); %Eosinophils 7.2 % (0.0-10.0); %Lymphocytes 18.8 % (21.0-51.0); %Monocytes 7.5 % (0.0-10.0); %Neutrophils 66.2 % (42.0-75.0); Hemoglobin 9.1 g/dL (14.0-18.0); Mean Corpuscular HGB CONC 30.6 g/dL (32.0-36.0); Mean Corpuscular Hemoglobin 23.5 pg (27.0-31.0); Mean Corpuscular Volume 76.6 fl (78.0-98.0); Platelet Count 320 10x3/uL (130-400); RBC Distribution Width 14.9 % (11.5-14.5); Red Blood Cell (RBC) Count 3.87 mill/uL (4.70-6.10); White Blood Cell (WBC) Count 6.3 10x3/uL (4.8-10.8)
[2022-05-04 02:45] LABS: ALT (SGPT) Less than 7 U/L (8-55); AST (SGOT) 12 U/L (5-34); Alkaline Phosphatase 71 U/L (40-110); Anion Gap 11 mmol/L (10-20); BUN (Urea Nitrogen) 15 mg/dL (8.4-25.7); Bilirubin, Total 0.6 mg/dL (0.2-1.2); Calc. Creatinine Clearance 56 mL/min (70-130); Calcium 8.5 mg/dL (7.8-10.44); Carbon Dioxide 26 mmol/L (23-31); Chloride 103 mmol/L (98-107); Estimated GFR 77; Globulin 2.9 g/dL (2.4-3.5); Glucose 130 mg/dL (83-110); Protein, Total 5.9 g/dL (5.8-8.1); Sodium 136 mmol/L (136-145)
[2022-05-04] MEDS ORDERED: Vancomycin HCl 750 MG in Sodium Chloride 0.9% 250 ML 250 ML IVPB SCH (03:00)
[2022-05-04] MEDS ORDERED: Ferrous Sulfate 325 MG TAB PO SCH (08:00)
[2022-05-04] MEDS: Carbidopa/Levodopa 25-100 mg Tablet PO SCH ×3 (08:34→20:51)
[2022-05-04] MEDS: Aspirin Chewable 81 MG TAB PO SCH (08:35)
[2022-05-04] MEDS: Gabapentin 300 MG CAP PO PRN ×2 (08:35→16:44)
[2022-05-04] MEDS: Enoxaparin Sodium 40 MG/0.4 ML SYRINGE SC SCH (08:35)
[2022-05-04] MEDS: Finasteride 5 MG TAB PO SCH (08:35)
[2022-05-04] MEDS: clonazePAM 0.5 MG TAB PO SCH ×2 (08:35→20:51)
[2022-05-04] MEDS: busPIRone HCl 10 MG TAB PO SCH ×2 (08:35→20:51)
[2022-05-04] MEDS: Polyethylene Glycol 3350 17 GM Packet PO SCH (08:36)
[2022-05-04] MEDS: Amlodipine 5 MG TAB PO SCH (08:36)
[2022-05-04] MEDS ORDERED: Doxycycline 100 MG CAP PO SCH (10:15)
[2022-05-04] MEDS: Cyclobenzaprine 10 MG TAB PO PRN (16:44)
[2022-05-04] MEDS ORDERED: Iron, Sodium Ferric Gluconate 125 MG in Sodium Chloride 0.9% 100 ML IVPB SCH (16:45)
[2022-05-04] MEDS: DULoxetine 60 MG CAP PO SCH (20:50)
[2022-05-04] MEDS: Acetaminophen 500 MG TAB PO PRN (20:50)
[2022-05-04] MEDS: Doxycycline 100 MG CAP PO SCH (20:50)
[2022-05-04] MEDS: Tamsulosin HCl 0.4 MG CAP PO SCH (20:51)
[2022-05-04] MEDS: Atorvastatin Calcium 40 MG TAB PO SCH (20:51)
[2022-05-04] MEDS: Melatonin 3 MG TAB PO PRN (20:51)
[2022-05-05] MEDS: hydrOXYzine 25 MG TAB PO PRN ×2 (00:43→12:05)
[2022-05-05] MEDS: traMADol HCl 50 MG TAB PO PRN ×2 (00:43→12:05)
[2022-05-05] MEDS: Cefepime 2 GM in Sodium Chloride 0.9% 100 ML IVPB SCH ×2 (01:15→14:57)
[2022-05-05] MEDS: Cyclobenzaprine 10 MG TAB PO PRN (02:04)
[2022-05-05] MEDS: Gabapentin 300 MG CAP PO PRN (02:04)
[2022-05-05 04:36] LABS: #Eosinphils 0.4 thou/uL (0.0-0.7); #Lymphocytes 1.5 thou/uL (1.20-3.40); #Monocytes 0.7 thou/uL (0.11-0.59); #Neutrophils 5.1 thou/uL (1.40-6.50); %Basophils 0.1 % (0.0-1.0); %Lymphocytes 19.8 % (21.0-51.0); %Monocytes 8.8 % (0.0-10.0); %Neutrophils 66.3 % (42.0-75.0); Hemoglobin 8.6 g/dL (14.0-18.0); Mean Corpuscular HGB CONC 30.4 g/dL (32.0-36.0); Mean Corpuscular Volume 75.6 fl (78.0-98.0); Mean Platelet Volume 9.6 fL (7.4-10.4); Platelet Count 360 10x3/uL (130-400); RBC Distribution Width 15.4 % (11.5-14.5); Red Blood Cell (RBC) Count 3.73 mill/uL (4.70-6.10); White Blood Cell (WBC) Count 7.6 10x3/uL (4.8-10.8)
[2022-05-05 06:08] LABS: ALT (SGPT) Less than 7 U/L (8-55); AST (SGOT) 21 U/L (5-34); Albumin 3.2 g/dL (3.4-4.8); Alkaline Phosphatase 67 U/L (40-110); Anion Gap 7 mmol/L (10-20); BUN (Urea Nitrogen) 13 mg/dL (8.4-25.7); Bilirubin, Total 0.5 mg/dL (0.2-1.2); Calc. Creatinine Clearance 52 mL/min (70-130); Calcium 8.6 mg/dL (7.8-10.44); Carbon Dioxide 28 mmol/L (23-31); Chloride 103 mmol/L (98-107); Estimated GFR 70; Globulin 2.4 g/dL (2.4-3.5); Glucose 118 mg/dL (83-110); Potassium 4.3 mmol/L (3.5-5.1); Protein, Total 5.6 g/dL (5.8-8.1); Sodium 134 mmol/L (136-145)
[2022-05-05] MEDS: Carbidopa/Levodopa 25-100 mg Tablet PO SCH ×2 (09:34→14:57)
[2022-05-05] MEDS: Enoxaparin Sodium 40 MG/0.4 ML SYRINGE SC SCH (09:34)
[2022-05-05] MEDS: Finasteride 5 MG TAB PO SCH (09:34)
[2022-05-05] MEDS: Doxycycline 100 MG CAP PO SCH (09:34)
[2022-05-05] MEDS: clonazePAM 0.5 MG TAB PO SCH (09:34)
[2022-05-05] MEDS: Aspirin Chewable 81 MG TAB PO SCH (09:34)
[2022-05-05] MEDS: Amlodipine 5 MG TAB PO SCH (09:34)
[2022-05-05] MEDS: busPIRone HCl 10 MG TAB PO SCH (09:34)
[2022-05-05] MEDS: Polyethylene Glycol 3350 17 GM Packet PO SCH (09:35)
[2022-05-05 12:59] VITALS: BP 145/69; TEMP 97.1
== END 2022-05-05 17:56 | disposition home or self-care (01) | DRG 683 ==
LOC: ERS 17:17 → 2NO 19:23 → OBSVTOIN 05-02 09:59
PROVIDERS: ADMIT Student in an Organized Health Care Education/Training Program; ATTEND Emergency Medicine
DX: N17.9 Acute kidney failure, unspecified (principal); G93.49 Other encephalopathy; R65.10 Systemic inflammatory response syndrome (SIRS) of non-infectious origin without acute organ dysfunction; D72.829 Elevated white blood cell count, unspecified; R07.9 Chest pain, unspecified; I12.9 Hypertensive chronic kidney disease with stage 1 through stage 4 chronic kidney disease, or unspecified chronic kidney disease; Z20.822 Contact with and (suspected) exposure to COVID-19; D63.1 Anemia in chronic kidney disease; G20 Parkinson's disease; D50.9 Iron deficiency anemia, unspecified; E78.5 Hyperlipidemia, unspecified; J45.20 Mild intermittent asthma, uncomplicated; R73.03 Prediabetes; N40.0 Benign prostatic hyperplasia without lower urinary tract symptoms; F41.9 Anxiety disorder, unspecified; F32.A Depression, unspecified; K59.00 Constipation, unspecified; Z95.1 Presence of aortocoronary bypass graft; Z79.899 Other long term (current) drug therapy; Z79.51 Long term (current) use of inhaled steroids; Z79.82 Long term (current) use of aspirin
CPT/HCPCS: 36415; 36416; 71045; 71260; 74230; 80053; 80202; 80306; 81001; 82550; 82553; 82728; 83540; 83550; 83690; 83735; 84100; 84145; 84484; 85025; 87040; 87081; 93005; 96374; 96375; G0378; J0692; J1650; J1956; J2916; J3370; J3490; J7050; J7120; Q9967; U0003; U0005

== ENCOUNTER 2022-05-12 07:45 | Emergency (ER) | payer OTHER, MEDICAID ==
[2022-05-12] MEDS ORDERED: Aspirin Chewable 81 MG TAB ONE (08:15)
[2022-05-12] MEDS ORDERED: methylPREDNISolone Sod Succ/PF 125 MG/2 ML VIAL ONE (08:15)
[2022-05-12 08:22] LABS: #Eosinphils 0.3 thou/uL (0.0-0.7); #Lymphocytes 1.9 thou/uL (1.20-3.40); #Monocytes 0.5 thou/uL (0.11-0.59); #Neutrophils 5.5 thou/uL (1.40-6.50); %Eosinophils 3.1 % (0.0-10.0); %Lymphocytes 23.2 % (21.0-51.0); %Monocytes 5.6 % (0.0-10.0); Mean Corpuscular HGB CONC 30.3 g/dL (32.0-36.0); Mean Corpuscular Hemoglobin 23.5 pg (27.0-31.0); Mean Corpuscular Volume 77.5 fl (78.0-98.0); Mean Platelet Volume 9.1 fL (7.4-10.4); Platelet Count 443 10x3/uL (130-400); RBC Distribution Width 17.4 % (11.5-14.5); Red Blood Cell (RBC) Count 4.25 mill/uL (4.70-6.10); White Blood Cell (WBC) Count 8.1 10x3/uL (4.8-10.8)
[2022-05-12 08:34] LABS: ALT (SGPT) Less than 7 U/L (8-55); AST (SGOT) 11 U/L (5-34); Albumin 3.7 g/dL (3.4-4.8); Alkaline Phosphatase 75 U/L (40-110); Anion Gap 14 mmol/L (10-20); BUN (Urea Nitrogen) 31 mg/dL (8.4-25.7); Bilirubin, Total 0.5 mg/dL (0.2-1.2); Calc. Creatinine Clearance 0 mL/min (70-130); Calcium 9.1 mg/dL (7.8-10.44); Carbon Dioxide 26 mmol/L (23-31); Chloride 102 mmol/L (98-107); Estimated GFR 54; Globulin 2.6 g/dL (2.4-3.5); Glucose 203 mg/dL (83-110); Potassium 4.6 mmol/L (3.5-5.1); Protein, Total 6.3 g/dL (5.8-8.1); Sodium 137 mmol/L (136-145)
[2022-05-12] MEDS ORDERED: Haloperidol Lactate 5 MG/ML VIAL ONE (13:29)
== END 2022-05-12 10:46 | disposition home or self-care (01) ==
LOC: ERS 07:45
DX: R06.02 Shortness of breath (principal); I10 Essential (primary) hypertension; J45.909 Unspecified asthma, uncomplicated; E78.5 Hyperlipidemia, unspecified; Z79.82 Long term (current) use of aspirin; Z79.899 Other long term (current) drug therapy
CPT/HCPCS: 36415; 71045; 80053; 83880; 84484; 85025; 93005; 94640; 96374; J1630; J2930

== ENCOUNTER 2022-05-12 12:43 | Inpatient (IN) | payer OTHER, MEDICAID ==
[2022-05-12 13:45] LABS: #Lymphocytes 0.4 thou/uL (1.20-3.40); #Monocytes 0.1 thou/uL (0.11-0.59); #Neutrophils 5.9 thou/uL (1.40-6.50); %Basophils 0.4 % (0.0-1.0); %Eosinophils 0.1 % (0.0-10.0); %Lymphocytes 5.5 % (21.0-51.0); %Monocytes 0.9 % (0.0-10.0); %Neutrophils 93.1 % (42.0-75.0); Hemoglobin 10.1 g/dL (14.0-18.0); Mean Corpuscular HGB CONC 29.9 g/dL (32.0-36.0); Mean Corpuscular Hemoglobin 22.8 pg (27.0-31.0); Mean Corpuscular Volume 76.5 fl (78.0-98.0); Mean Platelet Volume 9.7 fL (7.4-10.4); Platelet Count 505 10x3/uL (130-400); RBC Distribution Width 17.2 % (11.5-14.5); Red Blood Cell (RBC) Count 4.44 mill/uL (4.70-6.10); White Blood Cell (WBC) Count 6.3 10x3/uL (4.8-10.8)
[2022-05-12 14:02] LABS: ALT (SGPT) Less than 7 U/L (8-55); AST (SGOT) 12 U/L (5-34); Albumin 3.8 g/dL (3.4-4.8); Alkaline Phosphatase 73 U/L (40-110); Anion Gap 13 mmol/L (10-20); BUN (Urea Nitrogen) 33 mg/dL (8.4-25.7); Bilirubin, Total 0.7 mg/dL (0.2-1.2); Calc. Creatinine Clearance 0 mL/min (70-130); Calcium 9.3 mg/dL (7.8-10.44); Carbon Dioxide 23 mmol/L (23-31); Chloride 102 mmol/L (98-107); Estimated GFR 61; Globulin 3.1 g/dL (2.4-3.5); Glucose 174 mg/dL (83-110); Lipase 148 U/L (8-78); Potassium 4.4 mmol/L (3.5-5.1); Protein, Total 6.9 g/dL (5.8-8.1); Sodium 134 mmol/L (136-145)
[2022-05-12 14:30] LABS: Bacteria/HPF None Seen HPF (None Seen); Bilirubin Negative (Negative); Blood, Urine Negative (Negative); Clarity Clear (Clear); Glucose, Urine (Dipstick) Normal (Negative); Ketone, Urine Trace mg/dL (Negative); Leukocyte Negative Leu/uL (Negative); Nitrite Negative (Negative); Protein, Urine (Dipstick) 30 mg/dL (Neg-Trace); RBC/HPF 0-3 HPF (0-3); Specific Gravity, Urine 1.031 (1.002-1.036); Squamous Epithelial None Seen HPF (0-3); Urobilinogen Normal mg/dL (Less than 2); pH, Urine 6.5 (5.0-9.0)
[2022-05-12] MEDS ORDERED: Acetaminophen 500 MG TAB PO PRN (17:30)
[2022-05-12 18:10] VITALS: BMI 23.3
[2022-05-12] MEDS ORDERED: Sodium Chloride 0.9% 1,000 ML IV SCH (18:15)
[2022-05-12] MEDS: clonazePAM 0.5 MG TAB PO SCH (19:44)
[2022-05-12] MEDS: Atorvastatin Calcium 40 MG TAB PO SCH (19:45)
[2022-05-12] MEDS: DULoxetine 60 MG CAP PO SCH (19:45)
[2022-05-12] MEDS: Carbidopa/Levodopa 25-100 mg Tablet PO SCH (19:45)
[2022-05-12] MEDS: busPIRone HCl 10 MG TAB PO SCH (19:45)
[2022-05-12] MEDS: Tamsulosin HCl 0.4 MG CAP PO SCH (19:45)
[2022-05-12] MEDS: traZODone HCl 50 MG TAB PO SCH (19:45)
[2022-05-12] MEDS: traMADol HCl 50 MG TAB PO PRN (19:46)
[2022-05-12] MEDS: Acetaminophen 325 MG TAB PO PRN (19:46)
[2022-05-12] MEDS: Gabapentin 300 MG CAP PO PRN (19:47)
[2022-05-13] MEDS: traMADol HCl 50 MG TAB PO PRN ×3 (05:11→19:49)
[2022-05-13] MEDS: Cyclobenzaprine 10 MG TAB PO PRN (05:11)
[2022-05-13] MEDS: Acetaminophen 325 MG TAB PO PRN (05:12)
[2022-05-13] MEDS: Aspirin Chewable 81 MG TAB PO SCH (10:18)
[2022-05-13] MEDS: Amlodipine 5 MG TAB PO SCH (10:18)
[2022-05-13] MEDS: Finasteride 5 MG TAB PO SCH (10:19)
[2022-05-13] MEDS: Carbidopa/Levodopa 25-100 mg Tablet PO SCH ×3 (10:19→19:46)
[2022-05-13] MEDS: Lisinopril 10 MG TAB PO SCH (10:19)
[2022-05-13] MEDS: busPIRone HCl 10 MG TAB PO SCH ×2 (10:19→19:47)
[2022-05-13] MEDS: clonazePAM 0.5 MG TAB PO SCH ×2 (10:19→19:47)
[2022-05-13] MEDS: Enoxaparin Sodium 40 MG/0.4 ML SYRINGE SC SCH (10:20)
[2022-05-13] MEDS: Gabapentin 300 MG CAP PO PRN (14:44)
[2022-05-13 16:01] LABS: ALT (SGPT) Less than 7 U/L (8-55); AST (SGOT) 9 U/L (5-34); Albumin 3.5 g/dL (3.4-4.8); Alkaline Phosphatase 64 U/L (40-110); Anion Gap 11 mmol/L (10-20); BUN (Urea Nitrogen) 29 mg/dL (8.4-25.7); Bilirubin, Total 0.4 mg/dL (0.2-1.2); Calc. Creatinine Clearance 58 mL/min (70-130); Calcium 8.7 mg/dL (7.8-10.44); Carbon Dioxide 23 mmol/L (23-31); Chloride 105 mmol/L (98-107); Estimated GFR 86; Globulin 2.8 g/dL (2.4-3.5); Glucose 122 mg/dL (83-110); Magnesium 1.9 mg/dL (1.6-2.6); Potassium 4.1 mmol/L (3.5-5.1); Protein, Total 6.3 g/dL (5.8-8.1); Sodium 135 mmol/L (136-145)
[2022-05-13 16:05] LABS: Troponin I Less than 0.010 ng/mL (< 0.028)
[2022-05-13] MEDS: Atorvastatin Calcium 40 MG TAB PO SCH (19:46)
[2022-05-13] MEDS: DULoxetine 60 MG CAP PO SCH (19:47)
[2022-05-13] MEDS: Tamsulosin HCl 0.4 MG CAP PO SCH (19:48)
[2022-05-13] MEDS: traZODone HCl 50 MG TAB PO SCH (19:48)
[2022-05-14] MEDS: Cyclobenzaprine 10 MG TAB PO PRN ×2 (01:39→13:58)
[2022-05-14] MEDS: clonazePAM 0.5 MG TAB PO SCH ×2 (08:31→21:37)
[2022-05-14] MEDS: Enoxaparin Sodium 40 MG/0.4 ML SYRINGE SC SCH (08:31)
[2022-05-14] MEDS: Amlodipine 5 MG TAB PO SCH (08:31)
[2022-05-14] MEDS: Carbidopa/Levodopa 25-100 mg Tablet PO SCH ×3 (08:31→21:39)
[2022-05-14] MEDS: traMADol HCl 50 MG TAB PO PRN ×2 (08:32→21:36)
[2022-05-14] MEDS: Aspirin Chewable 81 MG TAB PO SCH (08:32)
[2022-05-14] MEDS: Finasteride 5 MG TAB PO SCH (08:32)
[2022-05-14] MEDS: busPIRone HCl 10 MG TAB PO SCH ×2 (08:32→21:37)
[2022-05-14] MEDS: Lisinopril 10 MG TAB PO SCH (08:33)
[2022-05-14] MEDS: Polyethylene Glycol 3350 17 GM Packet PO SCH (09:48)
[2022-05-14] MEDS: Acetaminophen 500 MG TAB PO SCH ×2 (09:48→16:32)
[2022-05-14] MEDS: Gabapentin 300 MG CAP PO SCH ×3 (09:48→21:35)
[2022-05-14] MEDS: traZODone HCl 50 MG TAB PO SCH (21:35)
[2022-05-14] MEDS: DULoxetine 60 MG CAP PO SCH (21:35)
[2022-05-14] MEDS: Tamsulosin HCl 0.4 MG CAP PO SCH (21:35)
[2022-05-14] MEDS: Atorvastatin Calcium 40 MG TAB PO SCH (21:37)
[2022-05-15] MEDS: Acetaminophen 500 MG TAB PO SCH ×4 (02:00→20:22)
[2022-05-15] MEDS: Gabapentin 300 MG CAP PO SCH ×3 (08:40→20:22)
[2022-05-15] MEDS: Enoxaparin Sodium 40 MG/0.4 ML SYRINGE SC SCH (08:40)
[2022-05-15] MEDS: Polyethylene Glycol 3350 17 GM Packet PO SCH (08:40)
[2022-05-15] MEDS: busPIRone HCl 10 MG TAB PO SCH ×2 (08:41→20:24)
[2022-05-15] MEDS: Amlodipine 5 MG TAB PO SCH (08:41)
[2022-05-15] MEDS: Aspirin Chewable 81 MG TAB PO SCH (08:43)
[2022-05-15] MEDS: clonazePAM 0.5 MG TAB PO SCH ×2 (08:43→20:23)
[2022-05-15] MEDS: Lisinopril 10 MG TAB PO SCH (08:43)
[2022-05-15] MEDS: Finasteride 5 MG TAB PO SCH (08:43)
[2022-05-15] MEDS: Carbidopa/Levodopa 25-100 mg Tablet PO SCH ×3 (08:43→20:24)
[2022-05-15] MEDS: Cyclobenzaprine 10 MG TAB PO PRN (13:07)
[2022-05-15] MEDS: traMADol HCl 50 MG TAB PO PRN (14:33)
[2022-05-15] MEDS: Atorvastatin Calcium 40 MG TAB PO SCH (20:23)
[2022-05-15] MEDS: Tamsulosin HCl 0.4 MG CAP PO SCH (20:23)
[2022-05-15] MEDS: traZODone HCl 50 MG TAB PO SCH (20:23)
[2022-05-15] MEDS: DULoxetine 60 MG CAP PO SCH (20:24)
[2022-05-16] MEDS: traMADol HCl 50 MG TAB PO PRN (01:43)
[2022-05-16] MEDS: Cyclobenzaprine 10 MG TAB PO PRN (03:54)
[2022-05-16] MEDS: Aspirin Chewable 81 MG TAB PO SCH (08:34)
[2022-05-16] MEDS: Carbidopa/Levodopa 25-100 mg Tablet PO SCH ×3 (08:35→20:42)
[2022-05-16] MEDS: Gabapentin 300 MG CAP PO SCH ×3 (08:35→20:52)
[2022-05-16] MEDS: Polyethylene Glycol 3350 17 GM Packet PO SCH (08:36)
[2022-05-16] MEDS: busPIRone HCl 10 MG TAB PO SCH ×2 (08:36→20:43)
[2022-05-16] MEDS: Lisinopril 10 MG TAB PO SCH (08:36)
[2022-05-16] MEDS: Enoxaparin Sodium 40 MG/0.4 ML SYRINGE SC SCH (08:36)
[2022-05-16] MEDS: Acetaminophen 500 MG TAB PO SCH ×3 (08:36→20:44)
[2022-05-16] MEDS: Finasteride 5 MG TAB PO SCH (08:36)
[2022-05-16] MEDS: Amlodipine 5 MG TAB PO SCH (08:37)
[2022-05-16] MEDS: clonazePAM 0.5 MG TAB PO SCH ×2 (08:37→20:43)
[2022-05-16] MEDS: Tamsulosin HCl 0.4 MG CAP PO SCH (20:43)
[2022-05-16] MEDS: Atorvastatin Calcium 40 MG TAB PO SCH (20:43)
[2022-05-16] MEDS: traZODone HCl 50 MG TAB PO SCH (20:43)
[2022-05-16] MEDS: DULoxetine 60 MG CAP PO SCH (20:43)
[2022-05-17] MEDS: Carbidopa/Levodopa 25-100 mg Tablet PO SCH ×3 (09:09→20:53)
[2022-05-17] MEDS: Gabapentin 300 MG CAP PO SCH ×3 (09:09→20:50)
[2022-05-17] MEDS: Polyethylene Glycol 3350 17 GM Packet PO SCH (09:09)
[2022-05-17] MEDS: clonazePAM 0.5 MG TAB PO SCH ×2 (09:09→20:50)
[2022-05-17] MEDS: busPIRone HCl 10 MG TAB PO SCH ×2 (09:09→20:49)
[2022-05-17] MEDS: Finasteride 5 MG TAB PO SCH (09:09)
[2022-05-17] MEDS: Lisinopril 10 MG TAB PO SCH (09:10)
[2022-05-17] MEDS: Aspirin Chewable 81 MG TAB PO SCH (09:10)
[2022-05-17] MEDS: Amlodipine 5 MG TAB PO SCH (09:11)
[2022-05-17] MEDS: Cyclobenzaprine 10 MG TAB PO PRN (09:11)
[2022-05-17] MEDS: Enoxaparin Sodium 40 MG/0.4 ML SYRINGE SC SCH (09:11)
[2022-05-17] MEDS: Acetaminophen 500 MG TAB PO SCH ×3 (09:23→20:50)
[2022-05-17] MEDS ORDERED: Aripiprazole 10 MG TAB PO SCH (11:17)
[2022-05-17] MEDS: Tamsulosin HCl 0.4 MG CAP PO SCH (20:49)
[2022-05-17] MEDS: traZODone HCl 50 MG TAB PO SCH (20:50)
[2022-05-17] MEDS: Atorvastatin Calcium 40 MG TAB PO SCH (20:50)
[2022-05-17] MEDS: DULoxetine 60 MG CAP PO SCH (20:50)
[2022-05-18] MEDS: Polyethylene Glycol 3350 17 GM Packet PO SCH (10:07)
[2022-05-18] MEDS: Enoxaparin Sodium 40 MG/0.4 ML SYRINGE SC SCH (10:07)
[2022-05-18] MEDS: Aspirin Chewable 81 MG TAB PO SCH (10:07)
[2022-05-18] MEDS: Acetaminophen 500 MG TAB PO SCH ×3 (10:07→20:39)
[2022-05-18] MEDS: Lisinopril 10 MG TAB PO SCH (10:07)
[2022-05-18] MEDS: clonazePAM 0.5 MG TAB PO SCH ×2 (10:08→20:38)
[2022-05-18] MEDS: Amlodipine 5 MG TAB PO SCH (10:08)
[2022-05-18] MEDS: Aripiprazole 10 MG TAB PO SCH (10:08)
[2022-05-18] MEDS: busPIRone HCl 10 MG TAB PO SCH ×2 (10:08→20:38)
[2022-05-18] MEDS: Carbidopa/Levodopa 25-100 mg Tablet PO SCH ×3 (10:08→20:38)
[2022-05-18] MEDS: Gabapentin 300 MG CAP PO SCH ×3 (10:08→20:39)
[2022-05-18] MEDS: Finasteride 5 MG TAB PO SCH (10:09)
[2022-05-18] MEDS: traZODone HCl 50 MG TAB PO SCH (20:38)
[2022-05-18] MEDS: Atorvastatin Calcium 40 MG TAB PO SCH (20:38)
[2022-05-18] MEDS: DULoxetine 60 MG CAP PO SCH (20:39)
[2022-05-18] MEDS: Tamsulosin HCl 0.4 MG CAP PO SCH (20:39)
[2022-05-19] MEDS: Cyclobenzaprine 10 MG TAB PO PRN (04:05)
[2022-05-19] MEDS: traMADol HCl 50 MG TAB PO PRN (04:05)
[2022-05-19] MEDS: Acetaminophen 500 MG TAB PO SCH ×3 (08:13→20:32)
[2022-05-19] MEDS: Aripiprazole 10 MG TAB PO SCH (08:14)
[2022-05-19] MEDS: clonazePAM 0.5 MG TAB PO SCH ×2 (08:14→20:32)
[2022-05-19] MEDS: Aspirin Chewable 81 MG TAB PO SCH (08:14)
[2022-05-19] MEDS: Enoxaparin Sodium 40 MG/0.4 ML SYRINGE SC SCH (08:14)
[2022-05-19] MEDS: Gabapentin 300 MG CAP PO SCH ×3 (08:14→20:31)
[2022-05-19] MEDS: Polyethylene Glycol 3350 17 GM Packet PO SCH (08:14)
[2022-05-19] MEDS: Finasteride 5 MG TAB PO SCH (08:15)
[2022-05-19] MEDS: busPIRone HCl 10 MG TAB PO SCH ×2 (08:15→20:31)
[2022-05-19] MEDS: Lisinopril 10 MG TAB PO SCH (08:15)
[2022-05-19] MEDS: Amlodipine 5 MG TAB PO SCH (08:15)
[2022-05-19] MEDS: Carbidopa/Levodopa 25-100 mg Tablet PO SCH ×3 (08:21→20:31)
[2022-05-19] MEDS: DULoxetine 60 MG CAP PO SCH (20:31)
[2022-05-19] MEDS: Tamsulosin HCl 0.4 MG CAP PO SCH (20:32)
[2022-05-19] MEDS: Atorvastatin Calcium 40 MG TAB PO SCH (20:32)
[2022-05-19] MEDS: traZODone HCl 50 MG TAB PO SCH (20:32)
[2022-05-20] MEDS: Cyclobenzaprine 10 MG TAB PO PRN ×2 (05:46→20:16)
[2022-05-20 06:30] LABS: #Eosinphils 0.2 thou/uL (0.0-0.7); #Lymphocytes 1.3 thou/uL (1.20-3.40); #Monocytes 0.6 thou/uL (0.11-0.59); #Neutrophils 4.9 thou/uL (1.40-6.50); %Basophils 0.6 % (0.0-1.0); %Eosinophils 3.5 % (0.0-10.0); %Lymphocytes 18.5 % (21.0-51.0); %Monocytes 8.3 % (0.0-10.0); %Neutrophils 69.2 % (42.0-75.0); Hemoglobin 10.1 g/dL (14.0-18.0); Mean Corpuscular HGB CONC 30.8 g/dL (32.0-36.0); Mean Corpuscular Hemoglobin 24.1 pg (27.0-31.0); Mean Corpuscular Volume 78.3 fl (78.0-98.0); Mean Platelet Volume 9.4 fL (7.4-10.4); Platelet Count 426 10x3/uL (130-400); RBC Distribution Width 16.9 % (11.5-14.5); Red Blood Cell (RBC) Count 4.18 mill/uL (4.70-6.10); White Blood Cell (WBC) Count 7.1 10x3/uL (4.8-10.8)
[2022-05-20 06:44] LABS: ALT (SGPT) Less than 7 U/L (8-55); AST (SGOT) 7 U/L (5-34); Albumin 3.3 g/dL (3.4-4.8); Alkaline Phosphatase 75 U/L (40-110); Anion Gap 10 mmol/L (10-20); BUN (Urea Nitrogen) 21 mg/dL (8.4-25.7); Bilirubin, Total 0.4 mg/dL (0.2-1.2); Calc. Creatinine Clearance 59 mL/min (70-130); Calcium 8.7 mg/dL (7.8-10.44); Carbon Dioxide 28 mmol/L (23-31); Chloride 102 mmol/L (98-107); Estimated GFR 88; Globulin 2.7 g/dL (2.4-3.5); Glucose 110 mg/dL (83-110); Potassium 4.1 mmol/L (3.5-5.1); Sodium 136 mmol/L (136-145)
[2022-05-20] MEDS: Acetaminophen 500 MG TAB PO SCH ×3 (08:27→20:16)
[2022-05-20] MEDS: Carbidopa/Levodopa 25-100 mg Tablet PO SCH ×3 (08:27→20:17)
[2022-05-20] MEDS: Gabapentin 300 MG CAP PO SCH ×3 (08:27→20:16)
[2022-05-20] MEDS: Lisinopril 10 MG TAB PO SCH (08:28)
[2022-05-20] MEDS: clonazePAM 0.5 MG TAB PO SCH ×2 (08:28→20:17)
[2022-05-20] MEDS: Aripiprazole 10 MG TAB PO SCH (08:28)
[2022-05-20] MEDS: busPIRone HCl 10 MG TAB PO SCH ×2 (08:28→20:17)
[2022-05-20] MEDS: Amlodipine 5 MG TAB PO SCH (08:28)
[2022-05-20] MEDS: Aspirin Chewable 81 MG TAB PO SCH (08:28)
[2022-05-20] MEDS: Enoxaparin Sodium 40 MG/0.4 ML SYRINGE SC SCH (08:29)
[2022-05-20] MEDS: Polyethylene Glycol 3350 17 GM Packet PO SCH (08:29)
[2022-05-20] MEDS: Finasteride 5 MG TAB PO SCH (08:29)
[2022-05-20] MEDS: traMADol HCl 50 MG TAB PO PRN (14:29)
[2022-05-20] MEDS: traZODone HCl 50 MG TAB PO SCH (20:16)
[2022-05-20] MEDS: DULoxetine 60 MG CAP PO SCH (20:17)
[2022-05-20] MEDS: Tamsulosin HCl 0.4 MG CAP PO SCH (20:17)
[2022-05-20] MEDS: Atorvastatin Calcium 40 MG TAB PO SCH (20:17)
[2022-05-21] MEDS: Gabapentin 300 MG CAP PO SCH ×3 (08:36→21:20)
[2022-05-21] MEDS: Carbidopa/Levodopa 25-100 mg Tablet PO SCH ×3 (08:36→21:27)
[2022-05-21] MEDS: Aripiprazole 10 MG TAB PO SCH (08:36)
[2022-05-21] MEDS: Lisinopril 10 MG TAB PO SCH (08:37)
[2022-05-21] MEDS: Amlodipine 5 MG TAB PO SCH (08:37)
[2022-05-21] MEDS: clonazePAM 0.5 MG TAB PO SCH ×2 (08:37→21:21)
[2022-05-21] MEDS: Enoxaparin Sodium 40 MG/0.4 ML SYRINGE SC SCH (08:37)
[2022-05-21] MEDS: Finasteride 5 MG TAB PO SCH (08:37)
[2022-05-21] MEDS: Aspirin Chewable 81 MG TAB PO SCH (08:37)
[2022-05-21] MEDS: Acetaminophen 500 MG TAB PO SCH ×3 (08:37→21:22)
[2022-05-21] MEDS: busPIRone HCl 10 MG TAB PO SCH ×2 (08:37→21:22)
[2022-05-21] MEDS: Polyethylene Glycol 3350 17 GM Packet PO SCH (08:38)
[2022-05-21] MEDS: DULoxetine 60 MG CAP PO SCH (21:21)
[2022-05-21] MEDS: Atorvastatin Calcium 40 MG TAB PO SCH (21:21)
[2022-05-21] MEDS: traZODone HCl 50 MG TAB PO SCH (21:22)
[2022-05-21] MEDS: Tamsulosin HCl 0.4 MG CAP PO SCH (21:22)
[2022-05-22] MEDS: Polyethylene Glycol 3350 17 GM Packet PO SCH (08:11)
[2022-05-22] MEDS: Enoxaparin Sodium 40 MG/0.4 ML SYRINGE SC SCH (08:11)
[2022-05-22] MEDS: Aspirin Chewable 81 MG TAB PO SCH (08:12)
[2022-05-22] MEDS: Aripiprazole 10 MG TAB PO SCH (08:12)
[2022-05-22] MEDS: Gabapentin 300 MG CAP PO SCH ×3 (08:13→21:23)
[2022-05-22] MEDS: busPIRone HCl 10 MG TAB PO SCH ×2 (08:13→21:23)
[2022-05-22] MEDS: Amlodipine 5 MG TAB PO SCH (08:13)
[2022-05-22] MEDS: Finasteride 5 MG TAB PO SCH (08:14)
[2022-05-22] MEDS: Acetaminophen 500 MG TAB PO SCH ×3 (08:14→21:22)
[2022-05-22] MEDS: Lisinopril 10 MG TAB PO SCH (08:14)
[2022-05-22] MEDS: clonazePAM 0.5 MG TAB PO SCH ×2 (08:14→21:23)
[2022-05-22] MEDS: Carbidopa/Levodopa 25-100 mg Tablet PO SCH ×3 (08:15→21:24)
[2022-05-22] MEDS: traMADol HCl 50 MG TAB PO PRN (09:42)
[2022-05-22] MEDS: DULoxetine 60 MG CAP PO SCH (21:23)
[2022-05-22] MEDS: Tamsulosin HCl 0.4 MG CAP PO SCH (21:23)
[2022-05-22] MEDS: traZODone HCl 50 MG TAB PO SCH (21:24)
[2022-05-22] MEDS: Atorvastatin Calcium 40 MG TAB PO SCH (21:24)
[2022-05-23] MEDS: Aspirin Chewable 81 MG TAB PO SCH (08:53)
[2022-05-23] MEDS: Enoxaparin Sodium 40 MG/0.4 ML SYRINGE SC SCH (08:53)
[2022-05-23] MEDS: Aripiprazole 10 MG TAB PO SCH (08:53)
[2022-05-23] MEDS: busPIRone HCl 10 MG TAB PO SCH ×2 (08:54→21:37)
[2022-05-23] MEDS: Gabapentin 300 MG CAP PO SCH ×3 (08:54→21:36)
[2022-05-23] MEDS: clonazePAM 0.5 MG TAB PO SCH ×2 (08:54→21:37)
[2022-05-23] MEDS: Amlodipine 5 MG TAB PO SCH (08:55)
[2022-05-23] MEDS: Carbidopa/Levodopa 25-100 mg Tablet PO SCH ×3 (08:55→21:37)
[2022-05-23] MEDS: Finasteride 5 MG TAB PO SCH (08:55)
[2022-05-23] MEDS: Lisinopril 10 MG TAB PO SCH (08:55)
[2022-05-23] MEDS: Acetaminophen 500 MG TAB PO SCH ×3 (08:56→21:37)
[2022-05-23] MEDS: Polyethylene Glycol 3350 17 GM Packet PO SCH (08:58)
[2022-05-23] MEDS ORDERED: Melatonin 3 MG TAB PO PRN (09:10)
[2022-05-23] MEDS: DULoxetine 60 MG CAP PO SCH (21:37)
[2022-05-23] MEDS: Tamsulosin HCl 0.4 MG CAP PO SCH (21:37)
[2022-05-23] MEDS: traZODone HCl 50 MG TAB PO SCH (21:38)
[2022-05-23] MEDS: Atorvastatin Calcium 40 MG TAB PO SCH (21:38)
[2022-05-24] MEDS: Polyethylene Glycol 3350 17 GM Packet PO SCH (08:23)
[2022-05-24] MEDS: clonazePAM 0.5 MG TAB PO SCH (08:23)
[2022-05-24] MEDS: Aspirin Chewable 81 MG TAB PO SCH (08:23)
[2022-05-24] MEDS: Enoxaparin Sodium 40 MG/0.4 ML SYRINGE SC SCH (08:23)
[2022-05-24] MEDS: Acetaminophen 500 MG TAB PO SCH ×2 (08:24→14:42)
[2022-05-24] MEDS: Gabapentin 300 MG CAP PO SCH ×2 (08:24→14:42)
[2022-05-24] MEDS: busPIRone HCl 10 MG TAB PO SCH (08:25)
[2022-05-24] MEDS: Finasteride 5 MG TAB PO SCH (08:25)
[2022-05-24] MEDS: Aripiprazole 10 MG TAB PO SCH (08:25)
[2022-05-24] MEDS: Lisinopril 10 MG TAB PO SCH (08:26)
[2022-05-24] MEDS: Amlodipine 5 MG TAB PO SCH (08:26)
[2022-05-24] MEDS: Carbidopa/Levodopa 25-100 mg Tablet PO SCH ×2 (08:32→14:42)
[2022-05-24 14:45] VITALS: BP 150/77; TEMP 98
== END 2022-05-24 15:18 | DRG 57 ==
LOC: ERS 12:43 → T4-A 15:47
PROVIDERS: ADMIT Family Medicine; ATTEND Family Medicine
DX: G20 Parkinson's disease (principal); F33.9 Major depressive disorder, recurrent, unspecified; E44.0 Moderate protein-calorie malnutrition; R07.89 Other chest pain; E78.00 Pure hypercholesterolemia, unspecified; F41.9 Anxiety disorder, unspecified; E78.5 Hyperlipidemia, unspecified; G89.29 Other chronic pain; N18.31 Chronic kidney disease, stage 3a; N40.0 Benign prostatic hyperplasia without lower urinary tract symptoms; R06.02 Shortness of breath; I12.9 Hypertensive chronic kidney disease with stage 1 through stage 4 chronic kidney disease, or unspecified chronic kidney disease; J45.909 Unspecified asthma, uncomplicated; R33.9 Retention of urine, unspecified; R32 Unspecified urinary incontinence; G47.9 Sleep disorder, unspecified; Z90.89 Acquired absence of other organs; Z98.890 Other specified postprocedural states; Z79.899 Other long term (current) drug therapy; Z79.82 Long term (current) use of aspirin; Z83.3 Family history of diabetes mellitus; Z82.49 Family history of ischemic heart disease and other diseases of the circulatory system; Z68.23 Body mass index [BMI] 23.0-23.9, adult; Z95.1 Presence of aortocoronary bypass graft
CPT/HCPCS: 36415; 36416; 71045; 80053; 81003; 81015; 83690; 83735; 83880; 84100; 84484; 85025; 93005; 93010; 94640; 96374; J1630; J1650; J2930; J7050; J7620

== ENCOUNTER 2022-06-12 18:09 | Inpatient (IN) | payer OTHER, MEDICAID ==
[2022-06-12] MEDS ORDERED: NOREPINEPHRINE 8 MG/250 ML-D5W 250 ML ONE (18:43)
[2022-06-12] MEDS ORDERED: Rocuronium Bromide 10 MG/ML (10ML VIAL) ONE (18:45)
[2022-06-12] MEDS ORDERED: Vancomycin 1 GM/200 ML (FROZEN) BAG ONE (18:45)
[2022-06-12] MEDS ORDERED: Piperacillin/Tazobactam 3.375 GM VIAL ONE (18:45)
[2022-06-12 18:53] LABS: Bacteria/HPF None Seen HPF (None Seen); Bilirubin Negative (Negative); Blood, Urine 1+ (Negative); Clarity Turbid (Clear); Glucose, Urine (Dipstick) Normal (Negative); Ketone, Urine Trace mg/dL (Negative); Leukocyte 500 Leu/uL (Negative); Nitrite Negative (Negative); Protein, Urine (Dipstick) 70 mg/dL (Neg-Trace); Squamous Epithelial 0-3 HPF (0-3); Urobilinogen Normal mg/dL (Less than 2); WBC/HPF Greater than 50 HPF (0-3)
[2022-06-12] MEDS ORDERED: EPINEPHrine 1 MG/10 ML Abboject SYRINGE ONE (18:53)
[2022-06-12 18:59] LABS: #Lymphocytes 1.4 thou/uL (1.20-3.40); #Monocytes 0.6 thou/uL (0.11-0.59); #Neutrophils 5.1 thou/uL (1.40-6.50); %Basophils 0.3 % (0.0-1.0); %Eosinophils 0.2 % (0.0-10.0); %Lymphocytes 19.3 % (21.0-51.0); %Monocytes 7.9 % (0.0-10.0); %Neutrophils 72.3 % (42.0-75.0); Hemoglobin 8.3 g/dL (14.0-18.0); Mean Corpuscular HGB CONC 30.2 g/dL (32.0-36.0); Mean Corpuscular Hemoglobin 23.2 pg (27.0-31.0); Mean Corpuscular Volume 76.9 fl (78.0-98.0); Mean Platelet Volume 10.4 fL (7.4-10.4); Platelet Count 316 10x3/uL (130-400); Red Blood Cell (RBC) Count 3.58 mill/uL (4.70-6.10); White Blood Cell (WBC) Count 7.1 10x3/uL (4.8-10.8)
[2022-06-12] MEDS ORDERED: Propofol 1,000 MG/100 ML VIAL IV ONE (19:12)
[2022-06-12] MEDS ORDERED: Fentanyl 100 MCG/2 ML VIAL ONE (19:15)
[2022-06-12 19:36] LABS: ALT (SGPT) Less than 7 U/L (8-55); AST (SGOT) 14 U/L (5-34); Albumin 2.8 g/dL (3.4-4.8); Alkaline Phosphatase 44 U/L (40-110); Anion Gap 14 mmol/L (10-20); BUN (Urea Nitrogen) 25 mg/dL (8.4-25.7); Bilirubin, Total 0.4 mg/dL (0.2-1.2); Calc. Creatinine Clearance 0 mL/min (70-130); Calcium 7.7 mg/dL (7.8-10.44); Carbon Dioxide 25 mmol/L (23-31); Chloride 99 mmol/L (98-107); Estimated GFR 56; Globulin 2.9 g/dL (2.4-3.5); Glucose 133 mg/dL (83-110); Magnesium 1.8 mg/dL (1.6-2.6); Potassium 3.8 mmol/L (3.5-5.1); Protein, Total 5.7 g/dL (5.8-8.1); Sodium 134 mmol/L (136-145)
[2022-06-12 19:44] LABS: SARS-CoV-2 NAA Rapid Test Not Detected (NotDetected)
[2022-06-12] MEDS ORDERED: Acetaminophen 650 MG Suppository ONE (19:49)
[2022-06-12 19:55] LABS: Actual Bicarbonate (HCO3a) 22.3 mEq/L (22-28); Analyzer IN Cardio ER; Base Excess (BEa) -1.5 mEq/L (-2.0 to +3.0); CO2 Tension 34.1 mmHg (35.0-45.0); Calcium, Ionized (arterial) 1.07 mmol/L (1.12-1.30); Carboxyhemoglobin (COHb) 0.2 gm% (0.0-3.0); Hemoglobin (Hb) 9.1 g/dL (14.0-18.0); Potassium - ABG Lab 3.43 mmol/L (3.70-5.30); pH, Arterial 7.43 (7.35-7.45)
[2022-06-12 20:07] LABS: O2 Tension (PaO2), arterial 49.6 mmHg (> 70.0); Puncture Site R RAD
[2022-06-12 20:08] LABS: ALV-art Gradient 299.925 mmHg (0-20)
[2022-06-12] MEDS ORDERED: Ondansetron PF 4 MG/2 ML Vial IVP PRN (20:40)
[2022-06-12] MEDS ORDERED: Ondansetron ODT 4 MG TAB PO PRN (20:40)
[2022-06-12] MEDS ORDERED: Acetaminophen 650 MG Suppository PR PRN (20:40)
[2022-06-12] MEDS ORDERED: Ventilator Sedation Protocol 1 EACH FS SCH (20:45)
[2022-06-12] MEDS ORDERED: DISCONTINUE PREVIOUS NARCOTIC PAIN MEDICATIONS AND BENZODIAZEPINES FS SCH (21:00)
[2022-06-12] MEDS ORDERED: Morphine CADD 100 ML IVPB SCH (21:00)
[2022-06-12] MEDS ORDERED: Propofol BOLUS 1,000 MG/100 ML VIAL IV PRN (21:00)
[2022-06-12 22:15] LABS: Lactic Acid 1.8 mmol/L (0.5-2.2)
[2022-06-12] MEDS: Sodium Chloride 0.9% 1,000 ML IV SCH (22:58)
[2022-06-12] MEDS: Doxycycline 100 MG in Sodium Chloride 0.9% 100 ML IVPB SCH (22:59)
[2022-06-12] MEDS: Piperacillin/Tazobactam 3.375 GM in Sodium Chloride 0.9% 100 ML IVPB SCH (22:59)
[2022-06-12] MEDS ORDERED: Vancomycin HCl 500 MG in Sodium Chloride 0.9% 100 ML IVPB SCH (23:00)
[2022-06-12] MEDS ORDERED: Iron, Sodium Ferric Gluconate 125 MG in Sodium Chloride 0.9% 100 ML IVPB SCH (23:00)
[2022-06-12] MEDS ORDERED: Iron Sucrose Complex 100 MG in Sodium Chloride 0.9% 100 ML IVPB SCH (23:30)
[2022-06-13 04:37] LABS: #Lymphocytes 0.6 thou/uL (1.20-3.40); #Monocytes 0.4 thou/uL (0.11-0.59); #Neutrophils 6.6 thou/uL (1.40-6.50); %Eosinophils 0.1 % (0.0-10.0); %Lymphocytes 7.7 % (21.0-51.0); %Monocytes 5.7 % (0.0-10.0); %Neutrophils 86.6 % (42.0-75.0); Hemoglobin 7.1 g/dL (14.0-18.0); Mean Corpuscular HGB CONC 30.4 g/dL (32.0-36.0); Mean Corpuscular Hemoglobin 22.9 pg (27.0-31.0); Mean Corpuscular Volume 75.4 fl (78.0-98.0); Mean Platelet Volume 10.6 fL (7.4-10.4); Platelet Count 286 10x3/uL (130-400); Red Blood Cell (RBC) Count 3.11 mill/uL (4.70-6.10); White Blood Cell (WBC) Count 7.7 10x3/uL (4.8-10.8)
[2022-06-13 04:43] LABS: Anion Gap 11 mmol/L (10-20); BUN (Urea Nitrogen) 20 mg/dL (8.4-25.7); Calc. Creatinine Clearance 54 mL/min (70-130); Calcium 7.7 mg/dL (7.8-10.44); Carbon Dioxide 24 mmol/L (23-31); Chloride 102 mmol/L (98-107); Estimated GFR 73; Glucose 146 mg/dL (83-110); Potassium 3.8 mmol/L (3.5-5.1); Sodium 133 mmol/L (136-145)
[2022-06-13] MEDS: Propofol 1,000 MG/100 ML VIAL IV PRN ×2 (05:08→14:13)
[2022-06-13] MEDS: Piperacillin/Tazobactam 3.375 GM in Sodium Chloride 0.9% 100 ML IVPB SCH ×3 (06:00→22:57)
[2022-06-13] MEDS ORDERED: VANCOMYCIN 1.25 GM/250 ML BAG IVPB SCH (06:00)
[2022-06-13] MEDS: Sodium Chloride 0.9% 1,000 ML IV SCH ×3 (06:23→18:30)
[2022-06-13 08:15] LABS: Actual Bicarbonate (HCO3a) 24.6 mEq/L (22-28); Base Excess (BEa) 1.3 mEq/L (-2.0 to +3.0); CO2 Tension 32.9 mmHg (35.0-45.0); Calcium, Ionized (arterial) 1.09 mmol/L (1.12-1.30); Carboxyhemoglobin (COHb) 0.3 gm% (0.0-3.0); Hemoglobin (Hb) 7.6 g/dL (14.0-18.0); Potassium - ABG Lab 3.56 mmol/L (3.70-5.30); pH, Arterial 7.49 (7.35-7.45)
[2022-06-13] MEDS: Enoxaparin Sodium 40 MG/0.4 ML SYRINGE SC SCH (08:44)
[2022-06-13] MEDS ORDERED: FLU VACC QS2022-23(65YR UP)/PF 240 MCG/0.7 ML SYRINGE IM ONE (09:00)
[2022-06-13 09:28] LABS: ALV-art Gradient 192.675 mmHg (0-20); O2 Tension (PaO2), arterial 51.4 mmHg (> 70.0); Puncture Site RBA
[2022-06-13] MEDS ORDERED: Electrolyte Replacement Protocol 1 EACH FS SCH (09:30)
[2022-06-13] MEDS ORDERED: Electrolyte Replacement Protocol FS PRN (09:30)
[2022-06-13] MEDS ORDERED: Magnesium 2 GM/50 ML(in water) 2 GM in Premix Bag 1 BAG IVPB SCH (09:30)
[2022-06-13] MEDS: Albumin 25% 25 GM/100 ML BOT IVPB SCH ×3 (10:49→23:05)
[2022-06-13] MEDS: Morphine 4 MG/ML VIAL SLOW IVP PRN ×3 (10:49→21:31)
[2022-06-13] MEDS: Doxycycline 100 MG in Sodium Chloride 0.9% 100 ML IVPB SCH ×2 (10:50→22:57)
[2022-06-13] MEDS: Famotidine/PF 20 mg/2ml Vial SLOW IVP SCH ×2 (10:50→20:59)
[2022-06-13] MEDS ORDERED: Iopamidol-370 76% 500 ML 1 ML ONE (15:55)
[2022-06-13 17:25] LABS: Hemoglobin 8.5 g/dL (14.0-18.0); Mean Corpuscular HGB CONC 32.2 g/dL (32.0-36.0); Mean Corpuscular Hemoglobin 25.3 pg (27.0-31.0); Mean Corpuscular Volume 78.6 fl (78.0-98.0); Mean Platelet Volume 10.4 fL (7.4-10.4); Platelet Count 236 10x3/uL (130-400); RBC Distribution Width 17.5 % (11.5-14.5); Red Blood Cell (RBC) Count 3.35 mill/uL (4.70-6.10); White Blood Cell (WBC) Count 5.3 10x3/uL (4.8-10.8)
[2022-06-13 19:58] LABS: Hemoglobin 8.5 g/dL (14.0-18.0); Mean Corpuscular HGB CONC 32.3 g/dL (32.0-36.0); Mean Corpuscular Hemoglobin 25.2 pg (27.0-31.0); Mean Corpuscular Volume 78.2 fl (78.0-98.0); Mean Platelet Volume 10.5 fL (7.4-10.4); Platelet Count 240 10x3/uL (130-400); Red Blood Cell (RBC) Count 3.35 mill/uL (4.70-6.10); White Blood Cell (WBC) Count 4.6 10x3/uL (4.8-10.8)
[2022-06-13] MEDS ORDERED: Vancomycin 1 GM in Premix Bag 1 BAG IVPB SCH (21:00)
[2022-06-14] MEDS: Propofol 1,000 MG/100 ML VIAL IV PRN ×3 (02:10→21:22)
[2022-06-14] MEDS: Albumin 25% 25 GM/100 ML BOT IVPB SCH (05:25)
[2022-06-14] MEDS: Midazolam HCl 2 mg/2 ml Vial SLOW IVP PRN ×3 (05:25→13:37)
[2022-06-14 05:38] LABS: #Eosinphils 0.1 thou/uL (0.0-0.7); #Lymphocytes 0.9 thou/uL (1.20-3.40); #Monocytes 0.4 thou/uL (0.11-0.59); #Neutrophils 3.7 thou/uL (1.40-6.50); %Basophils 0.1 % (0.0-1.0); %Eosinophils 2.4 % (0.0-10.0); %Lymphocytes 16.8 % (21.0-51.0); %Monocytes 8.1 % (0.0-10.0); %Neutrophils 72.6 % (42.0-75.0); Hemoglobin 8.5 g/dL (14.0-18.0); Mean Corpuscular HGB CONC 31.6 g/dL (32.0-36.0); Mean Corpuscular Volume 79.2 fl (78.0-98.0); Mean Platelet Volume 10.8 fL (7.4-10.4); Platelet Count 259 10x3/uL (130-400); RBC Distribution Width 17.4 % (11.5-14.5); Red Blood Cell (RBC) Count 3.39 mill/uL (4.70-6.10); White Blood Cell (WBC) Count 5.1 10x3/uL (4.8-10.8)
[2022-06-14] MEDS: Piperacillin/Tazobactam 3.375 GM in Sodium Chloride 0.9% 100 ML IVPB SCH ×3 (06:03→22:32)
[2022-06-14] MEDS: Sodium Chloride 0.9% 1,000 ML IV SCH ×3 (06:03→19:18)
[2022-06-14 06:25] LABS: ALT (SGPT) 7 U/L (8-55); AST (SGOT) 11 U/L (5-34); Albumin 3.1 g/dL (3.4-4.8); Alkaline Phosphatase 34 U/L (40-110); Anion Gap 11 mmol/L (10-20); BUN (Urea Nitrogen) 11 mg/dL (8.4-25.7); Bilirubin, Total 0.7 mg/dL (0.2-1.2); Calc. Creatinine Clearance 56 mL/min (70-130); Carbon Dioxide 23 mmol/L (23-31); Chloride 108 mmol/L (98-107); Estimated GFR 74; Globulin 2.2 g/dL (2.4-3.5); Glucose 88 mg/dL (83-110); Magnesium 2.2 mg/dL (1.6-2.6); Potassium 3.4 mmol/L (3.5-5.1); Protein, Total 5.3 g/dL (5.8-8.1); Sodium 139 mmol/L (136-145)
[2022-06-14] MEDS ORDERED: Dexmedetomidine In 0.9 % NaCl 100 ML IVPB SCH (08:15)
[2022-06-14] MEDS ORDERED: Pantoprazole 40 MG GRANULES PACKET PER TUBE SCH (09:00)
[2022-06-14] MEDS: Enoxaparin Sodium 40 MG/0.4 ML SYRINGE SC SCH (09:02)
[2022-06-14] MEDS: Pantoprazole 40 MG VIAL IVP SCH (09:02)
[2022-06-14] MEDS ORDERED: Potassium Bicarbonate/Cit Ac 20 MEQ TAB PER TUBE SCH (09:30)
[2022-06-14] MEDS: Doxycycline 100 MG in Sodium Chloride 0.9% 100 ML IVPB SCH ×2 (10:16→22:32)
[2022-06-14] MEDS ORDERED: Non-Formulary Item 1 EACH (Ipratropium/Albuterol Sulfate [Combivent Respimat] 120 PUFF In INH PRN (10:46)
[2022-06-14] MEDS: Morphine 4 MG/ML VIAL SLOW IVP PRN (12:36)
[2022-06-14] MEDS: methylPREDNISolone Sod Succ 40 MG VIAL IVP SCH ×2 (13:38→21:14)
[2022-06-14 14:28] LABS: Potassium 3.9 mmol/L (3.5-5.1)
[2022-06-14] MEDS: Carbidopa/Levodopa 25-100 mg Tablet PO SCH ×2 (15:11→20:43)
[2022-06-14] MEDS: Lorazepam 2 MG/ML VIAL SLOW IVP PRN ×2 (15:41→20:44)
[2022-06-14] MEDS ORDERED: Dextrose 50% Abboject 50 ML SYRINGE IVP PRN (19:30)
[2022-06-14] MEDS ORDERED: Dextrose 5% in Water 1,000 ML IV PRN (19:30)
[2022-06-14] MEDS: busPIRone HCl 10 MG TAB PO SCH (20:43)
[2022-06-14] MEDS: HumaLOG 300 UNITS/3 ML VIAL SC PRN (21:14)
[2022-06-15] MEDS: HumaLOG 300 UNITS/3 ML VIAL SC PRN ×4 (03:36→22:30)
[2022-06-15 04:07] LABS: #Lymphocytes 0.5 thou/uL (1.20-3.40); #Monocytes 0.1 thou/uL (0.11-0.59); %Eosinophils 0.1 % (0.0-10.0); %Lymphocytes 7.4 % (21.0-51.0); %Monocytes 1.9 % (0.0-10.0); %Neutrophils 90.7 % (42.0-75.0); Hemoglobin 10.1 g/dL (14.0-18.0); Mean Corpuscular Hemoglobin 25.2 pg (27.0-31.0); Mean Platelet Volume 10.5 fL (7.4-10.4); Platelet Count 299 10x3/uL (130-400); Red Blood Cell (RBC) Count 3.99 mill/uL (4.70-6.10); White Blood Cell (WBC) Count 6.6 10x3/uL (4.8-10.8)
[2022-06-15 04:26] LABS: ALT (SGPT) Less than 7 U/L (8-55); AST (SGOT) 15 U/L (5-34); Albumin 3.1 g/dL (3.4-4.8); Alkaline Phosphatase 64 U/L (40-110); Anion Gap 14 mmol/L (10-20); BUN (Urea Nitrogen) 14 mg/dL (8.4-25.7); Bilirubin, Total 0.7 mg/dL (0.2-1.2); Calc. Creatinine Clearance 56 mL/min (70-130); Calcium 8.3 mg/dL (7.8-10.44); Carbon Dioxide 19 mmol/L (23-31); Chloride 110 mmol/L (98-107); Estimated GFR 73; Globulin 2.7 g/dL (2.4-3.5); Glucose 247 mg/dL (83-110); Potassium 3.9 mmol/L (3.5-5.1); Protein, Total 5.8 g/dL (5.8-8.1); Sodium 139 mmol/L (136-145)
[2022-06-15] MEDS: methylPREDNISolone Sod Succ 40 MG VIAL IVP SCH (05:22)
[2022-06-15] MEDS: Sodium Chloride 0.9% 1,000 ML IV SCH (05:22)
[2022-06-15] MEDS: Piperacillin/Tazobactam 3.375 GM in Sodium Chloride 0.9% 100 ML IVPB SCH ×3 (06:03→22:05)
[2022-06-15] MEDS: Morphine 4 MG/ML VIAL SLOW IVP PRN ×5 (07:19→16:17)
[2022-06-15] MEDS: Enoxaparin Sodium 40 MG/0.4 ML SYRINGE SC SCH (07:19)
[2022-06-15] MEDS: Acetaminophen 325 MG TAB PO PRN (07:20)
[2022-06-15] MEDS: Carbidopa/Levodopa 25-100 mg Tablet PO SCH ×3 (07:20→20:26)
[2022-06-15] MEDS: Pantoprazole 40 MG VIAL IVP SCH (07:21)
[2022-06-15] MEDS: busPIRone HCl 10 MG TAB PO SCH ×2 (07:21→20:26)
[2022-06-15] MEDS ORDERED: Furosemide 40 MG/4 ML VIAL SLOW IVP SCH (07:45)
[2022-06-15] MEDS ORDERED: Non-Formulary Item 1 EACH (Clonazepam [Clonazepam] 2 MG Tablet) PO SCH (09:00)
[2022-06-15] MEDS: Propofol 1,000 MG/100 ML VIAL IV PRN ×2 (09:38→16:43)
[2022-06-15] MEDS: Midazolam HCl 2 mg/2 ml Vial SLOW IVP PRN ×4 (09:38→21:56)
[2022-06-15] MEDS: Doxycycline 100 MG in Sodium Chloride 0.9% 100 ML IVPB SCH ×2 (09:39→22:06)
[2022-06-15] MEDS: Lorazepam 2 MG/ML VIAL SLOW IVP PRN (12:20)
[2022-06-15] MEDS: Furosemide 40 MG/4 ML VIAL SLOW IVP SCH (13:42)
[2022-06-15] MEDS: Haloperidol Lactate 5 MG/ML VIAL SLOW IVP PRN (13:42)
[2022-06-16] MEDS: Propofol 1,000 MG/100 ML VIAL IV PRN ×4 (00:05→19:31)
[2022-06-16 04:12] LABS: #Lymphocytes 0.8 thou/uL (1.20-3.40); #Monocytes 0.6 thou/uL (0.11-0.59); #Neutrophils 8.3 thou/uL (1.40-6.50); %Eosinophils 0.2 % (0.0-10.0); %Lymphocytes 8.5 % (21.0-51.0); %Monocytes 6.2 % (0.0-10.0); Hemoglobin 9.1 g/dL (14.0-18.0); Mean Corpuscular HGB CONC 30.9 g/dL (32.0-36.0); Mean Corpuscular Hemoglobin 24.4 pg (27.0-31.0); Mean Corpuscular Volume 79.1 fl (78.0-98.0); Mean Platelet Volume 9.7 fL (7.4-10.4); Platelet Count 357 10x3/uL (130-400); RBC Distribution Width 18.7 % (11.5-14.5); Red Blood Cell (RBC) Count 3.71 mill/uL (4.70-6.10); White Blood Cell (WBC) Count 9.8 10x3/uL (4.8-10.8)
[2022-06-16 04:31] LABS: ALT (SGPT) Less than 7 U/L (8-55); AST (SGOT) 16 U/L (5-34); Alkaline Phosphatase 59 U/L (40-110); Anion Gap 13 mmol/L (10-20); BUN (Urea Nitrogen) 14 mg/dL (8.4-25.7); Bilirubin, Total 0.6 mg/dL (0.2-1.2); Calc. Creatinine Clearance 55 mL/min (70-130); Calcium 8.5 mg/dL (7.8-10.44); Carbon Dioxide 25 mmol/L (23-31); Chloride 105 mmol/L (98-107); Estimated GFR 69; Globulin 2.8 g/dL (2.4-3.5); Glucose 122 mg/dL (83-110); Potassium 2.8 mmol/L (3.5-5.1); Protein, Total 5.8 g/dL (5.8-8.1); Sodium 140 mmol/L (136-145)
[2022-06-16] MEDS: Piperacillin/Tazobactam 3.375 GM in Sodium Chloride 0.9% 100 ML IVPB SCH ×3 (06:06→22:19)
[2022-06-16] MEDS: Furosemide 40 MG/4 ML VIAL SLOW IVP SCH ×2 (06:06→13:27)
[2022-06-16] MEDS: Midazolam HCl 2 mg/2 ml Vial SLOW IVP PRN ×4 (06:17→21:52)
[2022-06-16] MEDS: Carbidopa/Levodopa 25-100 mg Tablet PO SCH ×3 (08:10→20:27)
[2022-06-16] MEDS: Haloperidol Lactate 5 MG/ML VIAL SLOW IVP PRN (08:10)
[2022-06-16] MEDS: Pantoprazole 40 MG VIAL IVP SCH (08:10)
[2022-06-16] MEDS: Enoxaparin Sodium 40 MG/0.4 ML SYRINGE SC SCH (08:11)
[2022-06-16] MEDS: Acetaminophen 325 MG TAB PO PRN ×2 (08:11→12:19)
[2022-06-16] MEDS: busPIRone HCl 10 MG TAB PO SCH ×2 (08:11→20:27)
[2022-06-16] MEDS: Potassium Bicarbonate/Cit Ac 20 MEQ TAB PO SCH ×4 (08:13→17:14)
[2022-06-16] MEDS ORDERED: Potassium Chloride 20 MEQ TAB PO SCH (09:00)
[2022-06-16] MEDS: Morphine 4 MG/ML VIAL SLOW IVP PRN ×3 (09:39→21:50)
[2022-06-16] MEDS: Doxycycline 100 MG in Sodium Chloride 0.9% 100 ML IVPB SCH ×2 (09:40→22:19)
[2022-06-16 11:07] VITALS: BMI 21.6
[2022-06-16] MEDS: Lorazepam 2 MG/ML VIAL SLOW IVP PRN (12:19)
[2022-06-16 16:03] LABS: Glucose 140 mg/dL (83-110)
[2022-06-16 16:25] LABS: Potassium 3.8 mmol/L (3.5-5.1)
[2022-06-17] MEDS: Propofol 1,000 MG/100 ML VIAL IV PRN (01:53)
[2022-06-17 04:46] LABS: #Eosinphils 0.2 thou/uL (0.0-0.7); #Lymphocytes 1.4 thou/uL (1.20-3.40); #Monocytes 0.5 thou/uL (0.11-0.59); #Neutrophils 5.4 thou/uL (1.40-6.50); %Eosinophils 3.3 % (0.0-10.0); %Lymphocytes 18.7 % (21.0-51.0); %Monocytes 6.7 % (0.0-10.0); %Neutrophils 71.3 % (42.0-75.0); Hemoglobin 9.7 g/dL (14.0-18.0); Mean Corpuscular HGB CONC 32.5 g/dL (32.0-36.0); Mean Corpuscular Hemoglobin 25.6 pg (27.0-31.0); Mean Corpuscular Volume 78.9 fl (78.0-98.0); Mean Platelet Volume 10.1 fL (7.4-10.4); Platelet Count 376 10x3/uL (130-400); Red Blood Cell (RBC) Count 3.77 mill/uL (4.70-6.10); White Blood Cell (WBC) Count 7.5 10x3/uL (4.8-10.8)
[2022-06-17 05:04] LABS: ALT (SGPT) Less than 7 U/L (8-55); AST (SGOT) 16 U/L (5-34); Albumin 3.1 g/dL (3.4-4.8); Alkaline Phosphatase 59 U/L (40-110); Anion Gap 13 mmol/L (10-20); BUN (Urea Nitrogen) 15 mg/dL (8.4-25.7); Bilirubin, Total 0.6 mg/dL (0.2-1.2); Calc. Creatinine Clearance 48 mL/min (70-130); Calcium 8.7 mg/dL (7.8-10.44); Carbon Dioxide 35 mmol/L (23-31); Chloride 97 mmol/L (98-107); Estimated GFR 62; Glucose 123 mg/dL (83-110); Potassium 3.5 mmol/L (3.5-5.1); Protein, Total 6.1 g/dL (5.8-8.1); Sodium 141 mmol/L (136-145)
[2022-06-17] MEDS: Furosemide 40 MG/4 ML VIAL SLOW IVP SCH ×2 (05:55→14:11)
[2022-06-17] MEDS: Piperacillin/Tazobactam 3.375 GM in Sodium Chloride 0.9% 100 ML IVPB SCH ×3 (06:02→22:38)
[2022-06-17] MEDS: busPIRone HCl 10 MG TAB PO SCH ×2 (09:36→20:31)
[2022-06-17] MEDS: Potassium Bicarbonate/Cit Ac 20 MEQ TAB PO SCH ×3 (09:36→15:45)
[2022-06-17] MEDS: Carbidopa/Levodopa 25-100 mg Tablet PO SCH ×3 (09:37→20:31)
[2022-06-17] MEDS: Enoxaparin Sodium 40 MG/0.4 ML SYRINGE SC SCH (10:13)
[2022-06-17] MEDS: Haloperidol Lactate 5 MG/ML VIAL SLOW IVP PRN (10:13)
[2022-06-17] MEDS: Pantoprazole 40 MG VIAL IVP SCH (10:14)
[2022-06-17] MEDS: Doxycycline 100 MG in Sodium Chloride 0.9% 100 ML IVPB SCH ×2 (10:53→22:38)
[2022-06-17] MEDS: traMADol HCl 50 MG TAB PO PRN ×2 (13:10→20:31)
[2022-06-17] MEDS: Acetaminophen 325 MG TAB PO PRN (14:11)
[2022-06-17] MEDS: Lorazepam 2 MG/ML VIAL SLOW IVP PRN (20:31)
[2022-06-18] MEDS: traMADol HCl 50 MG TAB PO PRN ×3 (04:41→21:03)
[2022-06-18] MEDS: Lorazepam 2 MG/ML VIAL SLOW IVP PRN (04:42)
[2022-06-18 05:05] LABS: #Eosinphils 0.2 thou/uL (0.0-0.7); %Eosinophils 2.8 % (0.0-10.0)
[2022-06-18 05:33] LABS: ALT (SGPT) Less than 7 U/L (8-55); AST (SGOT) 13 U/L (5-34); Albumin 3.5 g/dL (3.4-4.8); Alkaline Phosphatase 64 U/L (40-110); Anion Gap 16 mmol/L (10-20); BUN (Urea Nitrogen) 17 mg/dL (8.4-25.7); Calc. Creatinine Clearance 46 mL/min (70-130); Calcium 9.1 mg/dL (7.8-10.44); Carbon Dioxide 32 mmol/L (23-31); Chloride 94 mmol/L (98-107); Estimated GFR 64; Globulin 3.5 g/dL (2.4-3.5); Glucose 131 mg/dL (83-110); Potassium 3.5 mmol/L (3.5-5.1); Sodium 138 mmol/L (136-145)
[2022-06-18 06:17] LABS: #Lymphocytes 1.2 thou/uL (1.20-3.40); #Monocytes 0.5 thou/uL (0.11-0.59); #Neutrophils 5.9 thou/uL (1.40-6.50); %Basophils 0.1 % (0.0-1.0); %Lymphocytes 15.7 % (21.0-51.0); %Monocytes 6.3 % (0.0-10.0); %Neutrophils 75.1 % (42.0-75.0); Mean Corpuscular HGB CONC 31.9 g/dL (32.0-36.0); Mean Corpuscular Hemoglobin 25.5 pg (27.0-31.0); Mean Corpuscular Volume 79.9 fl (78.0-98.0); Mean Platelet Volume 9.8 fL (7.4-10.4); Platelet Count 419 10x3/uL (130-400); RBC Distribution Width 19.7 % (11.5-14.5); Red Blood Cell (RBC) Count 4.32 mill/uL (4.70-6.10); White Blood Cell (WBC) Count 7.9 10x3/uL (4.8-10.8)
[2022-06-18] MEDS: Piperacillin/Tazobactam 3.375 GM in Sodium Chloride 0.9% 100 ML IVPB SCH (06:37)
[2022-06-18] MEDS: Furosemide 40 MG/4 ML VIAL SLOW IVP SCH (06:37)
[2022-06-18] MEDS ORDERED: Potassium Bicarbonate/Cit Ac 20 MEQ TAB PER TUBE SCH (08:00)
[2022-06-18] MEDS: Acetaminophen 325 MG TAB PO PRN ×2 (08:07→21:07)
[2022-06-18] MEDS: Carbidopa/Levodopa 25-100 mg Tablet PO SCH ×3 (08:07→20:58)
[2022-06-18] MEDS: busPIRone HCl 10 MG TAB PO SCH ×2 (08:08→21:00)
[2022-06-18] MEDS: Enoxaparin Sodium 40 MG/0.4 ML SYRINGE SC SCH (08:12)
[2022-06-18] MEDS: Pantoprazole 40 MG VIAL IVP SCH (08:14)
[2022-06-18] MEDS ORDERED: Gabapentin 300 MG CAP PO PRN (09:08)
[2022-06-18] MEDS ORDERED: Cyclobenzaprine 10 MG TAB PO PRN (09:10)
[2022-06-18] MEDS: Doxycycline 100 MG in Sodium Chloride 0.9% 100 ML IVPB SCH ×2 (10:27→23:36)
[2022-06-18] MEDS ORDERED: clonazePAM 0.5 MG TAB PO SCH (10:30)
[2022-06-18] MEDS ORDERED: Sodium Chloride 0.9% 500 ML IV SCH (12:30)
[2022-06-18] MEDS: clonazePAM 0.5 MG TAB PO SCH ×2 (14:49→21:01)
[2022-06-18] MEDS ORDERED: Cefepime 1 GM in Sodium Chloride 0.9% 100 ML IVPB SCH (16:15)
[2022-06-19] MEDS ORDERED: Cefepime 1 GM in Sodium Chloride 0.9% 100 ML IVPB SCH (04:00)
[2022-06-19 05:20] LABS: #Eosinphils 0.5 thou/uL (0.0-0.7); #Lymphocytes 1.4 thou/uL (1.20-3.40); #Monocytes 0.6 thou/uL (0.11-0.59); #Neutrophils 10.4 thou/uL (1.40-6.50); %Eosinophils 3.8 % (0.0-10.0); %Lymphocytes 10.7 % (21.0-51.0); %Monocytes 4.3 % (0.0-10.0); %Neutrophils 81.2 % (42.0-75.0); Hemoglobin 10.4 g/dL (14.0-18.0); Mean Corpuscular Hemoglobin 24.8 pg (27.0-31.0); Mean Platelet Volume 9.5 fL (7.4-10.4); Platelet Count 462 10x3/uL (130-400); RBC Distribution Width 19.8 % (11.5-14.5); Red Blood Cell (RBC) Count 4.19 mill/uL (4.70-6.10); White Blood Cell (WBC) Count 12.8 10x3/uL (4.8-10.8)
[2022-06-19 05:36] LABS: ALT (SGPT) Less than 7 U/L (8-55); AST (SGOT) 13 U/L (5-34); Albumin 3.2 g/dL (3.4-4.8); Alkaline Phosphatase 55 U/L (40-110); Anion Gap 13 mmol/L (10-20); BUN (Urea Nitrogen) 19 mg/dL (8.4-25.7); Bilirubin, Total 0.8 mg/dL (0.2-1.2); Calc. Creatinine Clearance 48 mL/min (70-130); Calcium 8.5 mg/dL (7.8-10.44); Carbon Dioxide 30 mmol/L (23-31); Chloride 98 mmol/L (98-107); Estimated GFR 68; Globulin 3.2 g/dL (2.4-3.5); Glucose 100 mg/dL (83-110); Potassium 3.4 mmol/L (3.5-5.1); Protein, Total 6.4 g/dL (5.8-8.1); Sodium 138 mmol/L (136-145)
[2022-06-19] MEDS: traMADol HCl 50 MG TAB PO PRN ×2 (05:50→15:21)
[2022-06-19] MEDS: Potassium Chloride 20 MEQ in Premix Bag 1 BAG IVPB SCH ×2 (05:51→08:48)
[2022-06-19] MEDS: busPIRone HCl 10 MG TAB PO SCH ×2 (08:49→20:30)
[2022-06-19] MEDS: clonazePAM 0.5 MG TAB PO SCH ×3 (08:49→20:30)
[2022-06-19] MEDS: Carbidopa/Levodopa 25-100 mg Tablet PO SCH ×3 (08:49→20:30)
[2022-06-19] MEDS: Pantoprazole 40 MG VIAL IVP SCH (08:50)
[2022-06-19] MEDS: Enoxaparin Sodium 40 MG/0.4 ML SYRINGE SC SCH (08:50)
[2022-06-19] MEDS: Doxycycline 100 MG in Sodium Chloride 0.9% 100 ML IVPB SCH ×2 (13:32→23:07)
[2022-06-19] MEDS: Acetaminophen 325 MG TAB PO PRN (20:41)
[2022-06-20] MEDS: traMADol HCl 50 MG TAB PO PRN (01:32)
[2022-06-20] MEDS: Lorazepam 2 MG/ML VIAL SLOW IVP PRN (03:13)
[2022-06-20 05:49] LABS: #Eosinphils 0.3 thou/uL (0.0-0.7); #Lymphocytes 1.3 thou/uL (1.20-3.40); #Monocytes 0.5 thou/uL (0.11-0.59); #Neutrophils 7.3 thou/uL (1.40-6.50); %Basophils 0.1 % (0.0-1.0); %Eosinophils 3.1 % (0.0-10.0); %Lymphocytes 13.8 % (21.0-51.0); %Monocytes 4.8 % (0.0-10.0); %Neutrophils 78.3 % (42.0-75.0); Hemoglobin 11.5 g/dL (14.0-18.0); Mean Corpuscular HGB CONC 30.8 g/dL (32.0-36.0); Mean Corpuscular Hemoglobin 24.6 pg (27.0-31.0); Mean Corpuscular Volume 79.9 fl (78.0-98.0); Mean Platelet Volume 10.6 fL (7.4-10.4); Platelet Count 445 10x3/uL (130-400); RBC Distribution Width 20.2 % (11.5-14.5); Red Blood Cell (RBC) Count 4.67 mill/uL (4.70-6.10); White Blood Cell (WBC) Count 9.4 10x3/uL (4.8-10.8)
[2022-06-20 06:10] LABS: ALT (SGPT) Less than 7 U/L (8-55); AST (SGOT) 16 U/L (5-34); Albumin 3.6 g/dL (3.4-4.8); Alkaline Phosphatase 62 U/L (40-110); Anion Gap 12 mmol/L (10-20); BUN (Urea Nitrogen) 21 mg/dL (8.4-25.7); Bilirubin, Total 0.9 mg/dL (0.2-1.2); Calc. Creatinine Clearance 49 mL/min (70-130); Calcium 9.5 mg/dL (7.8-10.44); Carbon Dioxide 29 mmol/L (23-31); Chloride 98 mmol/L (98-107); Estimated GFR 67; Globulin 3.9 g/dL (2.4-3.5); Glucose 92 mg/dL (83-110); Potassium 3.8 mmol/L (3.5-5.1); Protein, Total 7.5 g/dL (5.8-8.1); Sodium 135 mmol/L (136-145)
[2022-06-20] MEDS: clonazePAM 0.5 MG TAB PO SCH (08:18)
[2022-06-20] MEDS: busPIRone HCl 10 MG TAB PO SCH (08:18)
[2022-06-20] MEDS: Carbidopa/Levodopa 25-100 mg Tablet PO SCH (08:19)
[2022-06-20] MEDS: Enoxaparin Sodium 40 MG/0.4 ML SYRINGE SC SCH (08:19)
[2022-06-20] MEDS: Pantoprazole 40 MG VIAL IVP SCH (08:20)
[2022-06-20 08:58] VITALS: BP 168/82; TEMP 98
[2022-06-20] MEDS ORDERED: Doxycycline 100 MG CAP PO SCH (09:00)
== END 2022-06-20 13:35 | disposition home or self-care (01) | DRG 870 ==
LOC: ERS 18:09 → CCU 19:03 → MSONC 06-19 11:13
PROVIDERS: ADMIT Family Medicine; ATTEND Student in an Organized Health Care Education/Training Program
PROC: 5A1955Z Respiratory Ventilation, Greater than 96 Consecutive Hours (ICD-10-PCS; principal; 2022-06-12)
PROC: 3E04329 Introduction of Other Anti-infective into Central Vein, Percutaneous Approach (ICD-10-PCS; 2022-06-12)
PROC: 3E03329 Introduction of Other Anti-infective into Peripheral Vein, Percutaneous Approach (ICD-10-PCS; 2022-06-12)
PROC: 30233N1 Transfusion of Nonautologous Red Blood Cells into Peripheral Vein, Percutaneous Approach (ICD-10-PCS; 2022-06-12)
PROC: 3E033XZ Introduction of Vasopressor into Peripheral Vein, Percutaneous Approach (ICD-10-PCS; 2022-06-12)
PROC: 0BH17EZ Insertion of Endotracheal Airway into Trachea, Via Natural or Artificial Opening (ICD-10-PCS; 2022-06-12)
PROC: 02HV33Z Insertion of Infusion Device into Superior Vena Cava, Percutaneous Approach (ICD-10-PCS; 2022-06-12)
PROC: B548ZZA Ultrasonography of Superior Vena Cava, Guidance (ICD-10-PCS; 2022-06-12)
DX: A41.52 Sepsis due to Pseudomonas (principal); R65.21 Severe sepsis with septic shock; Z20.822 Contact with and (suspected) exposure to COVID-19; J96.01 Acute respiratory failure with hypoxia; J15.1 Pneumonia due to Pseudomonas; E87.3 Alkalosis; E87.1 Hypo-osmolality and hyponatremia; N17.9 Acute kidney failure, unspecified; I50.32 Chronic diastolic (congestive) heart failure; E87.6 Hypokalemia; D50.9 Iron deficiency anemia, unspecified; F32.A Depression, unspecified; F41.9 Anxiety disorder, unspecified; R33.9 Retention of urine, unspecified; J45.909 Unspecified asthma, uncomplicated; I25.10 Atherosclerotic heart disease of native coronary artery without angina pectoris; G20 Parkinson's disease; E78.5 Hyperlipidemia, unspecified; G89.29 Other chronic pain; R07.9 Chest pain, unspecified; I11.0 Hypertensive heart disease with heart failure; E88.09 Other disorders of plasma-protein metabolism, not elsewhere classified; Z95.1 Presence of aortocoronary bypass graft; Z79.899 Other long term (current) drug therapy; Z79.82 Long term (current) use of aspirin; Z90.89 Acquired absence of other organs; Z78.1 Physical restraint status
CPT/HCPCS: 31500; 36415; 36416; 36430; 36556; 36600; 51702; 71045; 71275; 80048; 80053; 81003; 81015; 82533; 82805; 83605; 83735; 83880; 84100; 84484; 85025; 86850; 86900; 86901; 87040; 87070; 87077; 87081; 87086; 87186; 87205; 87811; 89220; 93005; 93306; 94002; 94003; 94640; 96365; 96366; 96368; 96374; 96375; 99292; C9113; J0171; J0692; J1630; J1650; J1756; J1815; J1940; J1956; J2060; J2250; J2270; J2543; J2704; J2920; J3010; J3370; J3370-JW; J3475; J3480; J3490; J7050; J7620; P9016; P9047; Q9967; S0028; U0003; U0005

== ENCOUNTER 2022-09-17 08:29 | Emergency (ER) | payer OTHER ==
[2022-09-17 09:27] LABS: #Eosinphils 0.2 thou/uL (0.0-0.7); #Lymphocytes 1.1 thou/uL (1.20-3.40); #Monocytes 0.3 thou/uL (0.11-0.59); #Neutrophils 3.9 thou/uL (1.40-6.50); %Basophils 0.1 % (0.0-1.0); %Eosinophils 3.1 % (0.0-10.0); %Lymphocytes 20.2 % (21.0-51.0); %Monocytes 5.1 % (0.0-10.0); %Neutrophils 71.5 % (42.0-75.0); Hemoglobin 11.7 g/dL (14.0-18.0); Mean Corpuscular HGB CONC 30.5 g/dL (32.0-36.0); Mean Corpuscular Hemoglobin 24.9 pg (27.0-31.0); Mean Corpuscular Volume 81.6 fl (78.0-98.0); Mean Platelet Volume 9.3 fL (7.4-10.4); Platelet Count 266 10x3/uL (130-400); RBC Distribution Width 15.1 % (11.5-14.5); Red Blood Cell (RBC) Count 4.72 mill/uL (4.70-6.10); White Blood Cell (WBC) Count 5.5 10x3/uL (4.8-10.8)
[2022-09-17] MEDS ORDERED: Ondansetron PF 4 MG/2 ML Vial ONE (09:42)
[2022-09-17] MEDS ORDERED: Morphine 4 MG/ML VIAL ONE (09:42)
[2022-09-17 09:59] LABS: ALT (SGPT) Less than 7 U/L (8-55); AST (SGOT) 9 U/L (5-34); Albumin 3.8 g/dL (3.4-4.8); Alkaline Phosphatase 79 U/L (40-110); Anion Gap 9 mmol/L (10-20); BUN (Urea Nitrogen) 25 mg/dL (8.4-25.7); Bilirubin, Total 0.4 mg/dL (0.2-1.2); Calc. Creatinine Clearance 0 mL/min (70-130); Calcium 8.8 mg/dL (7.8-10.44); Carbon Dioxide 27 mmol/L (23-31); Chloride 105 mmol/L (98-107); Estimated GFR 69; Globulin 3.6 g/dL (2.4-3.5); Glucose 148 mg/dL (83-110); Lipase 46 U/L (8-78); Potassium 4.2 mmol/L (3.5-5.1); Protein, Total 7.4 g/dL (5.8-8.1); Sodium 137 mmol/L (136-145)
== END 2022-09-17 12:40 | disposition home or self-care (01) ==
LOC: ERS 08:29
DX: R07.9 Chest pain, unspecified (principal); I10 Essential (primary) hypertension; E78.5 Hyperlipidemia, unspecified; Z79.82 Long term (current) use of aspirin; Z79.899 Other long term (current) drug therapy
CPT/HCPCS: 36415; 71045; 80053; 83690; 83880; 84484; 85025; 93005; 96374; 96375; J2270; J2405

== ENCOUNTER 2022-09-20 00:48 | Emergency (ER) | payer OTHER, MEDICAID ==
[2022-09-20 01:44] LABS: Hemoglobin 11.2 g/dL (14.0-18.0); Mean Corpuscular HGB CONC 31.9 g/dL (32.0-36.0); Mean Corpuscular Hemoglobin 25.6 pg (27.0-31.0); Mean Corpuscular Volume 80.2 fl (78.0-98.0); Mean Platelet Volume 10.3 fL (7.4-10.4); Platelet Count 220 10x3/uL (130-400); RBC Distribution Width 15.1 % (11.5-14.5); Red Blood Cell (RBC) Count 4.38 mill/uL (4.70-6.10); White Blood Cell (WBC) Count 6.5 10x3/uL (4.8-10.8)
[2022-09-20 02:07] LABS: ALT (SGPT) Less than 7 U/L (8-55); AST (SGOT) 11 U/L (5-34); Albumin 3.6 g/dL (3.4-4.8); Alkaline Phosphatase 83 U/L (40-110); Anion Gap 10 mmol/L (10-20); BUN (Urea Nitrogen) 29 mg/dL (8.4-25.7); Bilirubin, Total 0.4 mg/dL (0.2-1.2); Calc. Creatinine Clearance 0 mL/min (70-130); Calcium 9.1 mg/dL (7.8-10.44); Carbon Dioxide 28 mmol/L (23-31); Chloride 106 mmol/L (98-107); Estimated GFR 69; Globulin 3.8 g/dL (2.4-3.5); Glucose 105 mg/dL (83-110); Potassium 4.6 mmol/L (3.5-5.1); Protein, Total 7.4 g/dL (5.8-8.1); Sodium 139 mmol/L (136-145)
[2022-09-20 02:13] LABS: Anisocytosis SLIGHT = 6-15 cells (100X) (0-5/hpf); Eosinophils 3 % (0-10); Lymphocytes 25 % (21-51); MDiff Complete? YES; Monocytes 11 % (0-10); Neutrophil 61 % (42-75); Ovalocytes SLIGHT = 2-5 cells (100X) (0-1/hpf); Platelet Morphology Comment Appears Adequate; Polychromasia SLIGHT = 2-3 cells (100X) (0-2/hpf)
== END 2022-09-20 02:44 | disposition home or self-care (01) ==
LOC: ERS 00:48
DX: R06.02 Shortness of breath (principal); J44.9 Chronic obstructive pulmonary disease, unspecified; I10 Essential (primary) hypertension; Z79.899 Other long term (current) drug therapy
CPT/HCPCS: 36415; 71045; 80053; 83880; 84484; 85025

== ENCOUNTER 2022-09-20 04:03 | Emergency (ER) | payer OTHER, MEDICAID | END 2022-09-20 04:43 | disposition home or self-care (01) | LOC: ERS 04:03 | DX: R06.02 Shortness of breath (principal); R53.83 Other fatigue; M79.602 Pain in left arm | CPT/HCPCS: 36415; 71045; 80053; 83880; 84484; 85025; 93005 ==

== ENCOUNTER 2022-09-27 17:06 | Emergency (ER) | payer OTHER, MEDICARE | END 2022-09-27 18:51 | LOC: ERS 17:06 | DX: T83.091A Other mechanical complication of indwelling urethral catheter, initial encounter (principal); I12.9 Hypertensive chronic kidney disease with stage 1 through stage 4 chronic kidney disease, or unspecified chronic kidney disease; N18.30 Chronic kidney disease, stage 3 unspecified; J45.909 Unspecified asthma, uncomplicated; Y84.6 Urinary catheterization as the cause of abnormal reaction of the patient, or of later complication, without mention of misadventure at the time of the procedure | CPT/HCPCS: 51702 ==

== ENCOUNTER 2022-10-01 07:00 | Emergency (ER) | payer OTHER ==
[2022-10-01 08:01] LABS: Hemoglobin 13.4 g/dL (14.0-18.0); Mean Corpuscular HGB CONC 30.6 g/dL (32.0-36.0); Mean Corpuscular Hemoglobin 24.7 pg (27.0-31.0); Mean Corpuscular Volume 80.7 fl (78.0-98.0); Platelet Count 277 10x3/uL (130-400); Red Blood Cell (RBC) Count 5.42 mill/uL (4.70-6.10); White Blood Cell (WBC) Count 6.3 10x3/uL (4.8-10.8)
[2022-10-01 08:02] LABS: #Eosinphils 0.1 thou/uL (0.0-0.7); #Lymphocytes 1.4 thou/uL (1.20-3.40); #Monocytes 0.4 thou/uL (0.11-0.59); #Neutrophils 4.4 thou/uL (1.40-6.50); %Basophils 0.3 % (0.0-1.0); %Eosinophils 2.4 % (0.0-10.0); %Lymphocytes 21.4 % (21.0-51.0); %Monocytes 6.2 % (0.0-10.0); %Neutrophils 69.7 % (42.0-75.0); Mean Platelet Volume 9.3 fL (7.4-10.4)
[2022-10-01 08:16] LABS: INR-International Normal Ratio 1.1; Prothrombin Time 14.2 sec (12.0-14.7)
[2022-10-01 08:17] LABS: PTT 27.3 sec (22.9-36.1)
[2022-10-01 08:24] LABS: ALT (SGPT) Less than 7 U/L (8-55); AST (SGOT) 9 U/L (5-34); Albumin 3.9 g/dL (3.4-4.8); Alkaline Phosphatase 77 U/L (40-110); Anion Gap 13 mmol/L (10-20); BUN (Urea Nitrogen) 18 mg/dL (8.4-25.7); Bilirubin, Total 0.7 mg/dL (0.2-1.2); CK (CPK) 42 U/L (30-200); Calc. Creatinine Clearance 0 mL/min (70-130); Calcium 9.4 mg/dL (7.8-10.44); Carbon Dioxide 26 mmol/L (23-31); Chloride 103 mmol/L (98-107); Estimated GFR 64; Globulin 3.8 g/dL (2.4-3.5); Glucose 125 mg/dL (83-110); Potassium 3.9 mmol/L (3.5-5.1); Protein, Total 7.7 g/dL (5.8-8.1); Sodium 138 mmol/L (136-145)
[2022-10-01 09:41] LABS: Bilirubin Negative (Negative); Blood, Urine Negative (Negative); Clarity Clear (Clear); Glucose, Urine (Dipstick) Normal (Negative); Ketone, Urine 20 mg/dL (Negative); Leukocyte 75 Leu/uL (Negative); Nitrite Negative (Negative); Protein, Urine (Dipstick) 50 mg/dL (Neg-Trace); RBC/HPF 0-3 HPF (0-3); Specific Gravity, Urine 1.029 (1.002-1.036); Squamous Epithelial 0-3 HPF (0-3); Urobilinogen 3 mg/dL (Less than 2); pH, Urine 6.5 (5.0-9.0)
[2022-10-01 09:43] LABS: Bacteria/HPF Rare-Few HPF (None Seen)
== END 2022-10-01 12:14 ==
LOC: ERS 07:00
DX: I12.9 Hypertensive chronic kidney disease with stage 1 through stage 4 chronic kidney disease, or unspecified chronic kidney disease (principal); N18.30 Chronic kidney disease, stage 3 unspecified; E78.00 Pure hypercholesterolemia, unspecified; G20 Parkinson's disease; G89.4 Chronic pain syndrome; Z79.82 Long term (current) use of aspirin; Z79.899 Other long term (current) drug therapy; Z95.1 Presence of aortocoronary bypass graft
CPT/HCPCS: 36415; 70450; 71045; 80053; 81003; 81015; 82550; 83605; 83880; 84443; 84484; 85025; 85610; 85730; 87086; 93005